=== PATIENT | male | born 1940 | race Caucasian/White ===

== ENCOUNTER 2020-09-18 07:33 | Inpatient (IN) | payer MEDICARE, SELFPAY ==
[2020-09-18] VITALS (11 sets, daily range): BP systolic 97–149; BP diastolic 62–81; PULSE 62–83; RESP 16–20; TEMP 37–37.6; O2SAT 91–93; BMI 24.5
--- NOTE | ~2020-09-18 | XR_ITS ---
XR chest 1V portable 09/25/2020 05:36 Indication: Dyspnea. Procedure: AP portable chest Comparison: 09/23/2020 Findings: Bilateral diffuse airspace disease with consolidation is confluent throughout the right margy g. Heart size normal. Right pleural effusion. No pneumothorax. No acute osseous abnormality. Impression: 1: Diffuse bilateral airspace disease, compatible with pneumonia. No significant change. Reviewed, dictated and finalized at location A. Impression: 1: Diffuse bilateral airspace disease, compatible with pneumonia. No significan t change.
--- NOTE | ~2020-09-18 | XR_ITS ---
EXAMINATION: XR chest 1V portable INDICATION: Cough and worsening hypoxia TECHNIQUE: Portable AP chest at 1353 hours COMPARISON: 09/18/2020 FINDINGS: There is increasing opacity of the right hemithorax. There is also worsening volume loss of the right hemithorax. Airspace opacities have developed in the left lung base. No pleural effusion o r pneumothorax is identified. The cardiomediastinal silhouette is normal. IMPRESSION: 1. Increasing diffuse airspace opacity of the right hemithorax with volume loss which may reflect aty pical pneumonia and/or asymmetric pulmonary edema with possible mucous plugging. Reviewed, dictated and finalized at location A. IMPRESSION: 1. Increasing diffuse airspace opacity of the right hemithorax with volume loss which may reflect atypical pneumonia and/or asymmetric pulmonary edema with po ssible mucous plugging.
--- NOTE | ~2020-09-18 | US_ITS ---
EXAMINATION: US venous doppler UE DATE: 09/23/2020 14:13 INDICATION: COVID positive presenting with acute worsening hypoxia TECHNIQUE: Grayscale images without and with compression and Doppler images of the bilateral upper ex tremity veins were obtained. COMPARISON: None. FINDINGS: The right internal jugular vein, subclavian vein, axillary vein, brachial vein, basilic vein, cephali c vein, radial vein, and ulnar vein are patent. The left internal jugular vein, subclavian vein, axillary vein, brachial vein, basilic vein, cephalic vein, radial vein, and ulnar vein are patent. IMPRESSION: 1. Patent bilateral upper extremity veins. No evidence of venous thrombosis. Reviewed, dictated and finalized at location A.
--- NOTE | ~2020-09-18 | XR_ITS ---
XR chest 1V portable DATE: 09/28/2020 05:38 INDICATION: Covid 19 pneumonia TECHNIQUE: Portable AP chest on 09/28/2020 at 0530 hours COMPARISON: 09/27/2020 portable AP chest at 0541 hours FINDINGS: There is prominent volume loss of the right lung with rightward shift of heart and mediasti num. There is interval improvement of right-sided pulmonary infiltrates since 09/27/2020. There is imp rovement of mild infiltrate and/or atelectasis at left lung base. Heart size appears normal. IMPRESSION: Persistent prominent right lung volume loss and rightward shift of heart and mediastinum; improvement of right-sided infiltrate and left basilar infiltrate or atelectasis since 09/27/2020 Reviewed, dictated and finalized at location A. IMPRESSION: Persistent prominent right lung volume loss and rightward shift of heart and mediastinum; improvement of right-sided infiltrate and left basilar i nfiltrate or atelectasis since 09/27/2020
--- NOTE | ~2020-09-18 | US_ITS ---
EXAMINATION: US abdomen limited DATE: 09/18/2020 14:11 INDICATION: Epigastric pain with cholelithiasis TECHNIQUE: Multiple grayscale and Doppler ultrasound images of the abdomen were obtained. COMPARISON: CT from today FINDINGS: The head and body of the pancreas are normal. The pancreatic tail is obscured by bowel gas. The liver is normal with normal echogenicity and echotexture. No surface nodularity. Normal hepatope javed flow in the main portal vein. Stones are present in the nondistended gallbladder. There is no gal lbladder wall thickening or pericholecystic fluid. The normal common bile duct measures 6 mm. IMPRESSION: 1. Cholelithiasis without additional findings of cholecystitis. Reviewed, dictated and finalized at location A.
--- NOTE | ~2020-09-18 | XR_ITS ---
XR chest 1V portable DATE: 09/29/2020 05:41 INDICATION: Covid 19 pneumonia TECHNIQUE: Portable AP chest on 09/29/2020 at 0514 hours COMPARISON: 09/28/2020 portable AP chest at 0530 hours FINDINGS: There is persistent prominent right lung volume loss and right lung infiltrate, with rightw astrid shift of the heart mediastinum. There is minimal infiltrate or atelectasis in the left lower lung zone. The left lung otherwise appea rs clear. Heart size appears within normal limits. IMPRESSION: No significant change Reviewed, dictated and finalized at location A. IMPRESSION: No significant change
--- NOTE | ~2020-09-18 | XR_ITS ---
EXAMINATION: XR chest 1V portable DATE: 09/23/2020 05:52 INDICATION: COVID pneumonia TECHNIQUE: frontal view of the chest was obtained. COMPARISON: Chest radiograph dated 09/22/20 and 09/18/2020 FINDINGS: Definite progression of asymmetric airspace opacities throughout the right lung with increased densit y at the lateral aspect of the lung. No change in mild left basilar opacities. No pneumothorax or def initive pleural effusion. Heart size is normal. There appears be rightward shift of the heart and med iastinum. IMPRESSION: 1. Continued progression of diffuse opacities throughout the right lung with unchanged mild left basi lar opacities. Differential would include pneumonia, pulmonary edema, atelectasis, pulmonary infarct, aspiration, pulmonary hemorrhage or some combination thereof. The asymmetric distribution relatively sparing the left lung the absence of other superimposed factors would be atypical for both pulmonary edema and viral pneumonia such as COVID pneumonia. The rightward shift of the heart and mediastinum dose suggests some degree of atelectasis. Reviewed, dictated and finalized at location A. IMPRESSION: 1. Continued progression of diffuse opacities throughout the right lung with un changed mild left basilar opacities. Differential would include pneumonia, pulm onary edema, atelectasis, pulmonary infarct, aspiration, pulmonary hemorrhage o r some combination thereof. The asymmetric distribution relatively sparing the left lung the absence of other superimposed factors would be atypical for both pulmonary edema and viral pneumonia such as COVID pneumonia. The rightward shif t of the heart and mediastinum dose suggests some degree of atelectasis.
--- NOTE | ~2020-09-18 | XR_ITS ---
EXAMINATION: XR chest 1V portable DATE: 09/18/2020 10:27 INDICATION: Cough and shortness of breath TECHNIQUE: frontal view of the chest was obtained. COMPARISON: None FINDINGS: Patchy groundglass opacities in the lateral right mid and lower lung zones suspicious for pneumonia. There is hyperexpansion of the lungs with increased lucency in the left mid and bilateral upper lung zones suspicious for emphysema. No focal airspace opacity left lung. No pleural effusion or pneumotho rax. Heart size is normal. There is rightward shift of the superior mediastinum which could be relate d to hyperexpansion of the left upper lung. There are bridging osteophytes at multiple levels in the spine, consistent with diffuse idiopathic skeletal hyperostosis (DISH). IMPRESSION: 1. Groundglass opacities at the lateral right mid to lower lung zone which is suspicious for pneumoni a including COVID pneumonia. 2. Emphysema. Reviewed, dictated and finalized at location A. IMPRESSION: 1. Groundglass opacities at the lateral right mid to lower lung zone which is s uspicious for pneumonia including COVID pneumonia. 2. Emphysema.
--- NOTE | ~2020-09-18 | CT_ITS ---
EXAMINATION: CT abdomen pelvis w con DATE: 09/18/2020 09:14 INDICATION: Abdominal pain TECHNIQUE: Computed tomography (CT) of the abdomen and pelvis was performed with 100 mL Omnipaque-350 intravenous contrast. Automated exposure control and iterative reconstruction technique were employe d. The dose-length product was 879.19 mGy-cm. COMPARISON: None FINDINGS: Crazy paving pattern with groundglass opacities and septal line thickening with peripheral predominan ce in the right middle and lower lobes which could represent pneumonia including COVID pneumonia or a symmetric pulmonary edema. L3-4 millimeters left lower lobe nodule. Heart size is normal. No pericard ial or pleural effusion. Small sliding-type hiatal hernia. A few gallstones in the dependent fundus o f the normal gallbladder. Liver, bilateral adrenal glands are normal. There is a lobular contour at t he cephalad aspect of the spleen without evident underlying splenic lesions which is of indeterminate etiology or significance. There gastrosplenic and splenorenal collaterals as well as couple small po tential collateral splenic veins suggesting chronic splenic vein thrombosis. The portal and superior mesenteric veins are patent. 9 mm simple cyst at the lower pole of the left kidney with additional sm all bilateral parapelvic cysts of both kidneys. No hydronephrosis. Appendix is normal. No bowel obstr uction. Anastomotic suture line at the rectosigmoid junction suggesting prior partial colectomy. Post operative change of prior prostatectomy and the lateral pelvic lymph node dissections. Bladder is nor mal small fat-containing left inguinal hernia. No free intraperitoneal gas or fluid. No pathologicall y enlarged abdominal or pelvic lymphadenopathy. Moderate thoracolumbar spondylosis with bridging oste ophytes at multiple levels consistent with diffuse idiopathic skeletal hyperostosis (DISH). IMPRESSION: 1. Crazy paving pattern in the right midlung lower lobes most concerning for pneumonia particularly C OVID pneumonia with differential including asymmetric pulmonary edema. 2. Cholelithiasis. 3. Lobular contour to the spleen which could be related to prior trauma or infarct. 4. 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 4. Small fat-containing left inguinal hernia. Reviewed, dictated and finalized at location A. IMPRESSION: 1. Crazy paving pattern in the right midlung lower lobes most concerning for pn eumonia particularly COVID pneumonia with differential including asymmetric pul monary edema. 2. Cholelithiasis. 3. Lobular contour to the spleen which could be related to prior trauma or infa rct. 4. 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 4. Small fat-containing left inguinal hernia.
--- NOTE | ~2020-09-18 | US_ITS ---
EXAMINATION: US venous doppler [facility] DATE: 09/23/2020 14:12 INDICATION: COVID positive presenting with acute worsening hypoxia TECHNIQUE: Grayscale ultrasound images without and with compression and Doppler ultrasound images of the bilateral lower extremity veins were obtained. COMPARISON: None. FINDINGS: The visualized portions of right common femoral vein, profunda (deep) femoral vein, femoral vein, pop liteal vein, posterior tibial veins, peroneal veins, gastrocnemius vein and greater saphenous vein ou tflow are patent. The visualized portions of left common femoral vein, profunda femoral vein, femoral vein, popliteal v ein, posterior tibial veins, peroneal veins, gastrocnemius vein and greater saphenous vein outflow ar e patent. IMPRESSION: 1. No deep venous thrombosis in either lower limb. Reviewed, dictated and finalized at location A.
--- NOTE | ~2020-09-18 | XR_ITS ---
XR chest 1V portable DATE: 09/26/2020 05:54 INDICATION: Covid 19 pneumonia TECHNIQUE: Portable AP chest on 09/26/2020 at 0513 hours COMPARISON: 09/25/2020 portable AP chest at 0526 hours 09/18/2020 portable AP chest FINDINGS: There is persistent volume loss of the right lung with rightward shift of heart and mediast inum, persistent extensive right lung consolidation, probable pleural thickening and/or effusion, rel atively stable since 09/25/2020. Considerably increased since 09/18/2020. Mild infiltrate or atelectasis in the left lower lung. Heart size is likely within normal range or borderline considering magnification associated with AP p rojection. No left pleural effusion. No pneumothorax. Diffuse osteopenia. IMPRESSION: Volume loss and extensive infiltrate/consolidation of the right lung, with rightward shif t of heart and mediastinum. Probable right pleural effusion Patchy infiltrate or atelectasis in the left lower lung Little interval change since 09/25/2020 Reviewed, dictated and finalized at location A. IMPRESSION: Volume loss and extensive infiltrate/consolidation of the right margy g, with rightward shift of heart and mediastinum. Probable right pleural effusi on Patchy infiltrate or atelectasis in the left lower lung Little interval change since 09/25/2020
--- NOTE | ~2020-09-18 | XR_ITS ---
XR chest 1V portable DATE: 09/27/2020 06:00 INDICATION: Covid 19 pneumonia TECHNIQUE: Portable AP chest on 09/27/2020 0541 hours COMPARISON: 09/26/2020 portable AP chest at 0513 hours FINDINGS: There is right lung volume loss with rightward shift of the heart mediastinum and extensive right-sided infiltrate, relatively stable since 09/22/2020. Mild infiltrate or atelectasis in the left lower lung zone. Heart size appears borderline. Is aortic calcification. Degenerative spurring of the thoracic spine. Diffuse osteopenia. IMPRESSION: Right lung volume loss and extensive right lung infiltrate, mild left lower lung infiltra te or atelectasis, relatively stable since 10/06/2020 Reviewed, dictated and finalized at location A. IMPRESSION: Right lung volume loss and extensive right lung infiltrate, mild le ft lower lung infiltrate or atelectasis, relatively stable since 10/06/2020
--- NOTE | ~2020-09-18 | XR_ITS ---
XR chest 1V portable DATE: 09/30/2020 05:58 INDICATION: Covid 19 pneumonia TECHNIQUE: Portable AP chest on 09/30/2020 at 0532 hours COMPARISON: 09/29/2020 portable AP chest at 0514 hours FINDINGS: There is persistent substantial right lung volume loss with associated prominent rightward shift of heart and mediastinum. There is persistent extensive patchy pulmonary right lung consolidati on. There is infiltrate and/atelectasis in the left lower lung. IMPRESSION: No significant change since 09/29/2020 Reviewed, dictated and finalized at location A.
--- NOTE | ~2020-09-18 | XR_ITS ---
XR chest 1V portable 10/04/2020 06:09 Indication: Respiratory failure Procedure: AP portable chest Comparison: Comparison to multiple prior studies sequentially, with oldest reviewed study dated 09/27. Findings: Patchy bilateral airspace disease, right greater than left, unchanged. Low lung volumes in the right lung. Mediastinal shift to the right. No pneumothorax. No significant effusion. Impression: 1: Stable bilateral airspace disease, right greater than left, consistent with pneumonia. Reviewed, dictated and finalized at location A. Impression: 1: Stable bilateral airspace disease, right greater than left, consistent with pneumonia.
--- NOTE | ~2020-09-18 | US_ITS ---
EXAMINATION: US art doppler w press UE BI DATE: 09/27/2020 15:36 INDICATION: Peripheral arterial disease. Ischemic left hand. TECHNIQUE: Segmental pressures and plethysmographic and Doppler waveforms of the upper extremity makayla laurent were obtained. COMPARISON: None. FINDINGS: Right and left brachial artery pressures of 118 mm Hg and 100 mm Hg, respectively, are concordant (no rmal difference <= 30 mmHg). The right finger:brachial systolic pressure ratio is 0.89 (normal > 0.8) . Segmental pressure gradients are normal. Arterial Doppler waveforms demonstrate normal upstroke (no rmal upstroke < 0.2 s). The left finger:brachial systolic pressure ratio is 0.23. Segmental pressure gradients are increased between the brachial and ulnar arteries. Arterial Doppler waveforms are poorly visualized in ulnar ar teja. IMPRESSION: 1. Decreased pressures in left ulnar artery and left finger, consistent with arterial occlusive disea se. Reviewed, dictated and finalized at location A. IMPRESSION: 1. Decreased pressures in left ulnar artery and left finger, consistent with ar terial occlusive disease.
--- NOTE | ~2020-09-18 | CT_ITS ---
EXAMINATION: CTA chest PE protocol DATE: 09/23/2020 16:03 INDICATION: Acute worsening of hypoxia TECHNIQUE: Computed tomography angiography (CTA) of the chest was performed with 100 mL Omnipaque-350 intravenous contrast timed to evaluate the pulmonary arteries. Coronal maximum intensity projection 3D-reconstructions were created by the technologist. The dose-length product (DLP) was 734.43 mGy-cm. Automated exposure control and iterative reconstruction technique were employed. COMPARISON: None. FINDINGS: The pulmonary arteries are well-opacified. No pulmonary embolism is identified. Respiratory motion artifact somewhat limits evaluation of the lung bases. There are groundglass opacities involv ing much of the right lung there is also associated volume loss of the right lung. Small pleural effu sions are present. There are peripheral groundglass opacities of the left lung. There is right hilar and mediastinal lymphadenopathy. The heart size is normal. There are bridging osteophytes at multiple levels in the spine, consistent with diffuse idiopathic skeletal hyperostosis (DISH). IMPRESSION: 1. Diffuse groundglass opacities involving much of the right lung consistent with asymmetric pulmonar y edema and/or atypical pneumonia. 2. Small pleural effusions. 3. Right hilar and mediastinal lymphadenopathy, likely reactive. Reviewed, dictated and finalized at location A. IMPRESSION: 1. Diffuse groundglass opacities involving much of the right lung consistent wi th asymmetric pulmonary edema and/or atypical pneumonia. 2. Small pleural effusions. 3. Right hilar and mediastinal lymphadenopathy, likely reactive.
--- NOTE | 2020-09-18 08:15 | ED.GENADULT ---
HPI - General Adult General Chief complaint: Nausea/Vomiting/Diarrhea Stated complaint: This that and the other Time Seen by Provider: 09/18/20 07:58 Source: patient and RN notes reviewed History of Present Illness HPI narrative: Patient is a 79 y/o male complaining of abdominal pain, nausea and diarrhea for over 1 week. He states that his pain is in right lower abdomen and rates as 6/10. He states that his pain radiates to his shoulder sometimes. There is no known alleviating or exacerbating factor. He has poor appetite and has not been eating much. He has a cough, but no fever. He did not get COVID vaccine. Related Data Home Medications Medication Instructions Recorded Confirmed No Home Medications 09/18/20 09/18/20 Allergies Allergy/AdvReac Type Severity Reaction Status Date / Time No Known Allergies Allergy Verified 09/18/20 07:49 Review of Systems Constitutional: Constitutional: Denies chills, Denies fever(s), Denies headache(s), Reports malaise, Reports poor appetite and Denies weakness Eyes: Eyes: Denies blurry vision ENT: Denies headache(s) and Denies neck pain Cardiovascular: Cardiovascular: Denies chest pain and Denies dyspnea Respiratory: Respiratory: Reports cough and Denies dyspnea Gastrointestinal: Gastrointestinal: Reports abdominal pain, Reports diarrhea, Reports nausea and Denies vomiting Genitourinary: Genitourinary: Denies hematuria and Denies dysuria Musculoskeletal: Musculoskeletal: Denies back pain and Denies neck pain Neurologic: Denies headache(s) and Denies weakness PMFSH Social History Social History Gender identity (if verbalized by the patient): Male Exam Const: General: no acute distress and well developed Orientation/consciousness: oriented to person, oriented to place, oriented to time and patient oriented x3 HENMT: Head: normocephalic Ears: external ears normal General nose exam: Normal external nose present Eyes: General: appearance normal, both eyes and all related structures Conjunctivae: conjunctivae normal Neck: Neck: normal visual inspection and full ROM Chest: Chest palpation & inspection: normal inspection of the chest and no tenderness Resp: Effort & Inspection: normal respiratory effort Auscultation: clear to auscultation bilaterally Cardio: Rate: regular rate Rhythm: regular rhythm GI: GI Palp: No abdominal tenderness and Yes Soft to palpation Skin: General skin exam: normal color and turgor normal Neuro: General: oriented to person, oriented to place, oriented to time and patient oriented x3 Cranial nerves: Yes hard of hearing Cognition (Neuro): normal cognition Extrem: General: normal to inspection, full ROM and no pedal edema Psych: Appearance: grossly normal Mental Status: mental status grossly normal Affect: normal affect Course Consultations Consultation #1: Discussed with Dr. Hagan, who agrees to admit. Date: 09/18/20 Time: 10:22 Vital Signs Vital signs: Vital Signs Temperature 37.6 C 09/18/20 07:42 Pulse Rate 81 09/18/20 07:42 Respiratory Rate 16 09/18/20 07:42 Blood Pressure 115/67 09/18/20 07:42 Pulse Oximetry 92 09/18/20 07:42 Temperature 37.1 C 09/18/20 12:25 Pulse Rate 62 09/18/20 12:25 Respiratory Rate 20 09/18/20 12:25 Blood Pressure 139/70 09/18/20 12:25 Pulse Oximetry 92 09/18/20 12:25 Medical Decision Making Vital Signs Vital Signs: Vital Signs Temperature 37.6 C 09/18/20 07:42 Pulse Rate 81 09/18/20 07:42 Respiratory Rate 16 09/18/20 07:42 Blood Pressure 115/67 09/18/20 07:42 Pulse Oximetry 92 09/18/20 07:42 Temperature 37.1 C 09/18/20 12:25 Pulse Rate 62 09/18/20 12:25 Respiratory Rate 20 09/18/20 12:25 Blood Pressure 139/70 09/18/20 12:25 Pulse Oximetry 92 09/18/20 12:25 Lab Data Result diagrams: 09/18/20 08:09 09/18/20 08:09 Labs: Lab Res
[2020-09-18] MEDS: ONDANSETRON INJ 4 MG/2 ML VIAL IV PUSH ×2 (08:28→13:33)
[2020-09-18] MEDS: SODIUM CHLORIDE 0.9% IV 1,000 ML 999 ML IV CONT ×2 (08:28→10:29)
[2020-09-18 08:31] LABS: Basophils Percent Auto 0.1 % (0.2-1.2); Eosinophils Percent Auto 0.1 % (0-4.4); Hematocrit 41.3 % (42.0-52.0); Hemoglobin 13.9 g/dL (14.0-18.0); Immature Granulocyte Absolute 0.04 K/mm3 (0.00-0.031); Immature Granulocyte Percent A 0.5 % (0-0.5); Lymphocytes Absolute Auto 2.14 K/mm3 (0.9-3.2); Lymphocytes Percent Auto 28.8 % (18.3-44.2); Mean Corpuscular HGB Conc 33.7 g/dl (32-36); Mean Corpuscular Hemoglobin 31.3 pg (26-34); Mean Platelet Volume 10.4 fl (7.4-10.4); Monocytes Absolute Auto 0.4 K/mm3 (0.1-0.6); Monocytes Percent Auto 5.1 % (2.6-8.5); Neutrophils Absolute Auto 4.8 K/mm3 (1.3-6.7); Neutrophils Percent Auto 65.4 % (45.5-73.1); Platelet Count Result 239 k/mm3 (150-375); Red Blood Count 4.44 M/mm3 (4.6-6.20); Red Cell Distribution Width 12.3 % (11.5-14.5); White Blood Count 7.4 K/mm3 (4.5-10.0)
[2020-09-18 08:37] LABS: Add Urine Microscopic? YES; Appearance Urine Cloudy (Clear); Bacteria Urine Trace /hpf; Bilirubin Urine Negative (Negative); Color Urine Amber (Yellow); Glucose Urine UA Negative (Negative); Ketones Urine Negative (Negative); Leukocyte Esterase Ur Trace LEU/UL (Negative); Mucus Urine Rare /lpf; Nitrate Urine Negative (Negative); Protein Urine 2+ mg/dL (Negative); RBC Urine 0-2 /hpf (0-2); Specific Grav Ur 1.025 (1.001-1.035); Squamous Epithelial Cell Urine Many /hpf (Few); Urobilinogen Urine Negative mg/dL (<2.0)
[2020-09-18 08:39] LABS: Blood Urine Negative (Negative)
[2020-09-18 08:43] LABS: Alanine Aminotransferase 35 U/L (4-50); Albumin Level 3.5 g/dL (3.5-5.1); Alkaline Phosphatase 58 U/L (38-126); Aspartate Amino Transferase 40 U/L (17-59); Bilirubin,Total 0.8 mg/dL (0.2-1.3); Blood Urea Nitrogen 43 mg/dL (9-20); Calcium 8.3 mg/dL (8.4-10.2); Carbon Dioxide 22 mmol/L (22-30); Estimated CRCL calculation 37 ml/min; Estimated Glomerular Filt Rate 42; Glucose 105 mg/dL (65-110); Lipase 337 U/L (23-300)
[2020-09-18 09:10] LABS: Anion Gap 11 mmol/L (8-16); Chloride 102 mmol/L (98-107); Potassium 4.6 mmol/L (3.4-5.0); Sodium 135 mmol/L (137-145)
--- NOTE | 2020-09-18 10:14 | ECG_ITS ---
Measurements Intervals Webb Rate: 72 P: 55 NC: 162 QRS: 17 QRSD: 113 T: 47 QT: 421 QTc: 462 Interpretive Statements SINUS RHYTHM INTRAVENTRICULAR CONDUCTION DELAY DELAYED PRECORDIAL R/S TRANSITION BASELINE ARTIFACT- I, II, III, AVR, AVL, AVF, V1, V3-V6 BORDERLINE ECG Electronically Signed On 09-18-2020 11:48:26 CDT by Jimmy Ge D.O.
[2020-09-18 10:50] LABS: Troponin I 0.034 ng/mL (0.000-0.034)
--- NOTE | 2020-09-18 12:43 | PM.IMHP ---
H&P: HPI History of Present Illness Date/Time: 09/18/20 12:43 He is a 79 male with no significant past medical history who came into the ED with complaints of abdominal pain. As per the patient he has been having this vague epigastric discomfort /pain for the last 1 week. He had some pain in the right lower quadrant and about a week ago but that has subsided now. He denied have any radiation. It is 5-6 x 10 in intensity. It is dull ache. He is nauseous but no vomiting. He has some occasional dry heaving. He had 1 episode of diarrhea but that has now subsided. He has very poor appetite. He is also complaining of cough for the last 1 week and has been complaining of shortness of breath with exertion. He denied have any fever and chills. He has been taking Advil at home. He denied have any chest pain. He has not been vaccinated for COVID-19. He denied have any exposure to any body with suspected or confirmed COVID-[address] abdomen pelvis done in the emergency department which did not show any significant abdominal pathology other than cholelithiasis and small fat containing left inguinal hernia. He was found to have some ground-glass opacity in the right mid lung and lower lobe. COVID-19 test was sent from the emergency department which is pending. Chief Complaint: abdominal pain Review of Systems Review of Systems: All systems reviewed & are unremarkable except as noted in HPI and below PMFSH Social History Social History Gender identity (if verbalized by the patient): Male Meds Home Medications and Allergies Home Medications Medication Instructions Recorded Confirmed Type No Home Medications 09/18/20 09/18/20 History Allergies Allergy/AdvReac Type Severity Reaction Status Date / Time No Known Allergies Allergy Verified 09/18/20 07:49 Vital Signs Vital Signs - 24 hr 09/18/20 07:42 09/18/20 08:28 09/18/20 09:30 Temperature 37.6 C Pulse Rate 81 82 75 Respiratory Rate 16 20 20 Blood Pressure 115/67 97/62 L 111/65 Pulse Oximetry 92 91 93 09/18/20 10:40 09/18/20 11:16 09/18/20 12:00 Temperature Pulse Rate 72 70 73 Respiratory Rate 20 20 20 Blood Pressure 135/69 149/72 H 132/79 Pulse Oximetry 92 92 91 09/18/20 12:25 Temperature 37.1 C Pulse Rate 62 Respiratory Rate 20 Blood Pressure 139/70 Pulse Oximetry 92 Exam Narrative: General awake and alert not in acute distress, Hard of hearing Eyes PERRLA normal conjunctiva no discharge HEENT no discharge Neck supple CVS S1-S2 no murmur Respiratory no wheezes or crepitation respiration nonlabored GI soft minimal tenderness in the epigastric area Chest wall no tenderness or 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 Psychiatric cooperative appropriate mood and affect Extremities no edema H&P: Results Labs Labs: Short CBC 09/18/20 Range/Units 08:09 WBC 7.4 (4.5-10.0) K/mm3 Hgb 13.9 L (14.0-18.0) g/dL Hct 41.3 L (42.0-52.0) % Plt Count 239 (150-375) k/mm3 BMP 09/18/20 08:09 Sodium 135 L Potassium 4.6 Chloride 102 Carbon Dioxide 22 BUN 43 H Creatinine 1.60 H Glucose 105 Calcium 8.3 L Cardiac Enzymes 09/18/20 Range/Units 08:09 Troponin I 0.034 (0.000-0.034) ng/mL Liver Function 09/18/20 Range/Units 08:09 Total Bilirubin 0.8 (0.2-1.3) mg/dL AST 40 (17-59) U/L ALT 35 (4-50) U/L Alkaline Phosphatase 58 (38-126) U/L Albumin 3.5 (3.5-5.1) g/dL Urine 09/18/20 Range/Units 08:09 Urine Color [place] (Yellow) Urine Appearance Cloudy H (Clear) Urine pH 5.0 (5.0-9.0) Ur Specific [place] 1.025 (1.001-1.035) Urine Protein 2+ H (Negative) mg/dL Urine Glucose (UA) Negative (Negative) mg/dL Assessment and Plan Assessment and plan (1) Gastritis: Code(s): K29.70 - Gastritis, unspecified, without bleeding Status: Acute Assessment
--- NOTE | 2020-09-18 13:12 | PC.NURSE ---
This patient, Negrito Valdez, was admitted to [facility] Surg Room 321-. Patient/family oriented to hospital policies and general routines including ID bracelet, bed and alarms, visiting hours, pain management, procedures, bathroom and other care routines, personal items, smoking policy, room service/diet, and visiting hours. Information on how to activate the Rapid Response Team has been discussed. Patient/Family are encouraged to report perceived risks to care and to ask questions if they do not understand what they are told or what they should do.
[2020-09-18] MEDS: SODIUM CHLORIDE 0.9% IV 1,000 ML 100 ML IV CONT (13:30)
[2020-09-18 13:35] LABS: Troponin I 0.029 ng/mL (0.000-0.034)
[2020-09-18 16:42] LABS: Troponin I 0.032 ng/mL (0.000-0.034)
[2020-09-18] MEDS: PANTOPRAZOLE SODIUM IV 40 MG VIAL IV PUSH (18:00)
[2020-09-18] MEDS: HEPARIN SODIUM 5,000 UNITS/ML VIAL 5000 UNITS SUB-Q (20:42)
[2020-09-18] MEDS: MAG HYDROX/AL HYDROX/SIMETH 30 ML UDC PO (21:48)
[2020-09-19] VITALS (9 sets, daily range): BP systolic 132–145; BP diastolic 60–76; PULSE 52–83; RESP 17–22; TEMP 36.4–36.9; O2SAT 88–96
[2020-09-19] MEDS: HEPARIN SODIUM 5,000 UNITS/ML VIAL 5000 UNITS SUB-Q (08:46)
[2020-09-19] MEDS: PANTOPRAZOLE SODIUM IV 40 MG VIAL IV PUSH (08:46)
[2020-09-19 09:16] LABS: Anion Gap 8 mmol/L (8-16); Blood Urea Nitrogen 29 mg/dL (9-20); Calcium 8.1 mg/dL (8.4-10.2); Carbon Dioxide 24 mmol/L (22-30); Chloride 105 mmol/L (98-107); Estimated CRCL calculation 42 ml/min; Estimated Glomerular Filt Rate 49; Glucose 98 mg/dL (65-110); Potassium 4.4 mmol/L (3.4-5.0); Sodium 137 mmol/L (137-145)
--- NOTE | 2020-09-19 12:47 | PM.IMPN ---
Progress Note: A&P Assessment and Plan (1) KATERYNA (acute kidney injury): Code(s): N17.9 - Acute kidney failure, unspecified Status: Acute Assessment and Plan: -down trending down to 1.4 (2) Gastroenteritis: Code(s): K52.9 - Noninfective gastroenteritis and colitis, unspecified Status: Acute Assessment and Plan: - patient had some problems overnight, appears to have resolved. Advancing diet to regular (3) Person under investigation for COVID-19: Code(s): Z20.822 - Contact with and (suspected) exposure to COVID-19 Status: Acute Assessment and Plan: awaiting COVID-19 results, imaging was concerning for COVID-19 because of ground-glass opacities (4) Dehydration: Code(s): E86.0 - Dehydration Status: Acute Assessment and Plan: patient is tolerating p.o. Additional Plan - diet: Regular - GI prophylaxis: Ppi - code status full code - disposition pending clinical course, likely home Time Spent With Patient Time with patient: 15 - 25 minutes Subjective Date/time seen: 09/19/20 12:47 Patient examined. Overnight he had a lot of abdominal pain that was thought to be from gastritis and he has been on PPI. we discussed advancing his diet to regular today to see how well tolerates it. imaging was concerning for COVID-19, awaiting COVID-19 results. He is on 2 L of oxygen. patient denies fever, chills, nausea, vomiting, diarrhea. Does endorse abdominal pain which resolved overnight. He feels much better overall today. Review of Systems Review of Systems: All systems reviewed & are unremarkable except as noted in HPI and below Exam Narrative: - GENERAL: Pleasant elderly male, appears stated age, no acute distress - EYES: EOMI. Anicteric. - HENT: Moist mucous membranes. - LUNGS: Clear to auscultation bilaterally, no wheezing, rhonchi, or rales. - CARDIOVASCULAR: Regular rate and rhythm. No murmur. No JVD. - ABDOMEN: Soft, non-tender and non-distended. No palpable masses. - EXTREMITIES: No edema. Peripheral pulses 2+. Non-tender. - NEUROLOGIC: No focal neurological deficits. CN II-XII grossly intact. - PSYCHIATRIC: Awake, Alert and oriented. Appropriate mood and affect. - SKIN: No rashes or lesions. Warm. - LYMPH: No cervical lymphadenopathy. Objective Data Vital Signs Vital Signs: Vital Signs - 24 hr 09/18/20 16:00 09/18/20 20:00 09/18/20 23:32 Temperature 37.2 C 37.6 C H 37.0 C Pulse Rate 81 83 77 Respiratory Rate 20 20 18 Blood Pressure 148/80 H 147/81 H 143/74 H Pulse Oximetry 92 91 93 09/19/20 03:51 09/19/20 08:00 09/19/20 10:50 Temperature 36.8 C 36.9 C Pulse Rate 66 68 Respiratory Rate 17 20 Blood Pressure 145/73 H 132/60 Pulse Oximetry 90 96 92 09/19/20 12:00 Temperature 36.4 C Pulse Rate 52 L Respiratory Rate 22 H Blood Pressure 139/76 Pulse Oximetry 92 Intake/Output Intake/Output: Intake & Output 09/16/20 09/17/20 09/18/20 09/19/20 23:59 23:59 23:59 23:59 Intake Total 2300 340 Balance 2300 340 Meds/Results Medications: Active Medications Generic Name Dose Route Start Last Admin Trade Name Freq PRN Reason Stop Dose Admin Acetaminophen 650 mg 09/18/20 12:40 Acetaminophen 325 Mg Tablet PO Q6H PRN Mild Pain (1-3) or Fever Al Hydrox/Mg Hydrox/Simethicone 30 ml 09/18/20 12:40 09/18/20 21:48 Mag Hydrox/Al Hydrox/Simeth 30 Ml Udc PO 30 ml QID PRN Administration Dyspepsia Heparin Sodium (Porcine) 5,000 units 09/18/20 21:00 09/19/20 08:46 Heparin Sodium 5,000 Units/Ml Vial SUB-Q 5,000 units Q12HR JINNY Administration Sodium Chloride 1,000 mls @ 100 mls/hr 09/18/20 12:40 09/18/20 13:30 Normal Saline Iv IV CONT 100 mls/hr .Q10H JINNY Administration Ondansetron HCl 4 mg 09/18/20 12:40 09/18/20 13:33 Ondansetron Inj 4 Mg/2 Ml Vial IV PUSH 4 mg Q6H PRN Administration Nausea And Vomiting Pantoprazole Sodium 40 mg 09/18/20 12:55 09/19/20
[2020-09-19 13:58] LABS: SARS-CoV-2 RNA PCR Positive
[2020-09-19 16:24] LABS: INR 1.1; Prothrombin Time 13.7 Seconds (11.1-14.7)
[2020-09-19 16:32] LABS: Alanine Aminotransferase 28 U/L (4-50); Estimated CRCL calculation 45 ml/min; Estimated Glomerular Filt Rate 53
[2020-09-19] MEDS: MAG HYDROX/AL HYDROX/SIMETH 30 ML UDC PO (17:04)
[2020-09-19] MEDS: ONDANSETRON INJ 4 MG/2 ML VIAL IV PUSH (17:04)
[2020-09-19 18:02] LABS: Eosinophils Percent Auto 0.3 % (0-4.4); Hematocrit 41.2 % (42.0-52.0); Hemoglobin 12.9 g/dL (14.0-18.0); Immature Granulocyte Absolute 0.06 K/mm3 (0.00-0.031); Immature Granulocyte Percent A 0.9 % (0-0.5); Lymphocytes Absolute Auto 1.89 K/mm3 (0.9-3.2); Lymphocytes Percent Auto 29.7 % (18.3-44.2); Mean Corpuscular HGB Conc 31.3 g/dl (32-36); Mean Platelet Volume 9.9 fl (7.4-10.4); Monocytes Absolute Auto 0.3 K/mm3 (0.1-0.6); Monocytes Percent Auto 4.2 % (2.6-8.5); Neutrophils Absolute Auto 4.1 K/mm3 (1.3-6.7); Neutrophils Percent Auto 64.9 % (45.5-73.1); Platelet Count Result 221 k/mm3 (150-375); Red Blood Count 4.16 M/mm3 (4.6-6.20); Red Cell Distribution Width 12.7 % (11.5-14.5); White Blood Count 6.4 K/mm3 (4.5-10.0)
[2020-09-19] MEDS: REMDESIVIR 200 MG/NS 250 ML 200 MG/250 ML BAG 250 MG IVPB (18:36)
[2020-09-19] MEDS: SODIUM CHLORIDE 0.9% IV 1,000 ML 100 ML IV CONT (18:39)
[2020-09-19] MEDS: ENOXAPARIN 40 MG/0.4 ML SYRINGE SUB-Q (21:18)
[2020-09-20] VITALS: BP 129/50; PULSE 94; RESP 18; TEMP 36.9; O2SAT 94
[2020-09-20] MEDS: SODIUM CHLORIDE 0.9% IV 1,000 ML 100 ML IV CONT (06:05)
[2020-09-20 06:50] LABS: Alanine Aminotransferase 25 U/L (4-50); Estimated CRCL calculation 45 ml/min; Estimated Glomerular Filt Rate 53
[2020-09-20 06:58] LABS: INR 1.1
[2020-09-20 08:00] VITALS: BP 150/76; PULSE 77; RESP 20; TEMP 37.2; O2SAT 94
[2020-09-20] MEDS: DEXAMETHASONE 2 MG TABLET 6 MG PO (08:05)
[2020-09-20] MEDS: PANTOPRAZOLE SODIUM IV 40 MG VIAL IV PUSH (08:06)
[2020-09-20] MEDS: ENOXAPARIN 40 MG/0.4 ML SYRINGE SUB-Q ×2 (08:06→20:27)
[2020-09-20] MEDS: REMDESIVIR 100 MG/NS 250 ML 100 MG/250 ML BAG 250 MG IVPB (10:49)
[2020-09-20 12:09] VITALS: O2SAT 90
--- NOTE | 2020-09-20 12:51 | PM.IMPN ---
Progress Note: A&P Assessment and Plan (1) COVID-19: Code(s): U07.1 - COVID-19 Status: Acute Assessment and Plan: - diagnosed 09/18/2020 - likely etiology of hypoxia and gastroenteritis - continue remdesivir and decadron (2) KATERYNA (acute kidney injury): Code(s): N17.9 - Acute kidney failure, unspecified Status: Acute Assessment and Plan: - KATERYNA resolved, creatinine down to 1.3, likely was prerenal from diarrhea from gastroenteritis, stop IV fluids (3) Gastroenteritis: Code(s): K52.9 - Noninfective gastroenteritis and colitis, unspecified Status: Acute Assessment and Plan: - likely from COVID-19 as this is a common symptom - continue supportive care (4) Acute respiratory failure with hypoxia: Code(s): J96.01 - Acute respiratory failure with hypoxia Status: Acute Assessment and Plan: - patient is not on any home oxygen therapy -Continue supplemental oxygen to keep oxygen saturation greater than 90%, hypoxia from COVID-19 Additional Plan Diet: Regular DVT prophylaxis: Lovenox GI prophylaxis: Protonix Code status: Full code Disposition: Continue remdesivir while hypoxic, will evaluate with PT and possible home O2 evaluation once complete with remdesivir course Time Spent With Patient Time with patient: 15 - 25 minutes Subjective Date/time seen: 09/20/20 12:51 Patient examined. He has no new complaints still very hard of hearing and needs hearing aid battery changed. He has oxygen requirements have increased to 3 L as his O2 saturation was 89% on 2 L. I discussed with nurse to continue titrating oxygen for saturations greater than 90%. We will continue his remdesivir and decadron treatment plan. is otherwise doing well no new problems. Diarrhea seems to be resolved. patient denies fever, chills, nausea, vomiting, abdominal pain. Review of Systems Review of Systems: All systems reviewed & are unremarkable except as noted in HPI and below Exam Narrative: - GENERAL: Pleasant elderly gentleman appears stated age. sitting comfortably in chair. No acute distress. - EYES: EOMI. Anicteric. - HENT: Moist mucous membranes. - LUNGS: Clear to auscultation bilaterally, no wheezing. Regular respirations on 3 L oxygen by nasal cannula. - CARDIOVASCULAR: Regular rate and rhythm. No murmur. No JVD. - ABDOMEN: Soft, non-tender and non-distended. - EXTREMITIES: No edema. Peripheral pulses 2+. Non-tender. - NEUROLOGIC: No focal neurological deficits. CN II-XII grossly intact. - PSYCHIATRIC: Awake, Alert and oriented. Appropriate mood and affect. - SKIN: No rashes or lesions. Warm. - LYMPH: No cervical lymphadenopathy. Objective Data Vital Signs Vital Signs: Vital Signs - 24 hr 09/19/20 13:00 09/19/20 16:00 09/19/20 16:07 Temperature 36.6 C Pulse Rate 83 Respiratory Rate 20 Blood Pressure 142/71 H Pulse Oximetry 96 92 94 09/19/20 20:00 09/20/20 00:00 09/20/20 08:00 Temperature 36.9 C 37.2 C Pulse Rate 94 77 Respiratory Rate 18 20 Blood Pressure 129/50 L 150/76 H Pulse Oximetry 90 94 94 09/20/20 12:09 Temperature Pulse Rate Respiratory Rate Blood Pressure Pulse Oximetry 90 Intake/Output Intake/Output: Intake & Output 09/17/20 09/18/20 09/19/20 09/20/20 23:59 23:59 23:59 23:59 Intake Total 3300 830 2240 Output Total 400 Balance 3300 830 1840 Meds/Results Medications: Active Medications Generic Name Dose Route Start Last Admin Trade Name Freq PRN Reason Stop Dose Admin Acetaminophen 650 mg 09/18/20 12:40 Acetaminophen 325 Mg Tablet PO Q6H PRN Mild Pain (1-3) or Fever Al Hydrox/Mg Hydrox/Simethicone 30 ml 09/18/20 12:40 09/19/20 17:04 Mag Hydrox/Al Hydrox/Simeth 30 Ml Udc PO 30 ml QID PRN Administration Dyspepsia Dexamethasone 6 mg 09/20/20 08:00 09/20/20 08:05 Dexamethasone 2 Mg Tablet PO 09/29/20 08:01 6 mg DAILY@0800 JINNY Administration Enoxapar
[2020-09-20 16:00] VITALS: BP 93/60; PULSE 86; RESP 20; TEMP 36.3; O2SAT 94
[2020-09-20 20:00] VITALS: O2SAT 91
[2020-09-21] VITALS (7 sets, daily range): BP systolic 102–132; BP diastolic 51–63; PULSE 65–96; RESP 16–18; TEMP 35.6–36.9; O2SAT 90–92
[2020-09-21 07:11] LABS: Alanine Aminotransferase 25 U/L (4-50); Estimated CRCL calculation 45 ml/min; Estimated Glomerular Filt Rate 53
[2020-09-21 07:55] LABS: INR 1.2; Prothrombin Time 15.3 Seconds (11.1-14.7)
[2020-09-21] MEDS: REMDESIVIR 100 MG/NS 250 ML 100 MG/250 ML BAG 250 MG IVPB (09:56)
[2020-09-21] MEDS: ENOXAPARIN 40 MG/0.4 ML SYRINGE SUB-Q ×2 (09:56→22:09)
[2020-09-21] MEDS: PANTOPRAZOLE SODIUM IV 40 MG VIAL IV PUSH (09:56)
[2020-09-21] MEDS: DEXAMETHASONE 2 MG TABLET 6 MG PO (09:56)
--- NOTE | 2020-09-21 10:55 | PM.IMPN ---
Progress Note: A&P Assessment and Plan (1) COVID-19: Code(s): U07.1 - COVID-19 Status: Acute Assessment and Plan: - diagnosed 09/18/2020 - likely etiology of hypoxia and gastroenteritis - continue remdesivir and decadron to be completed on the (2) Acute respiratory failure with hypoxia: Code(s): J96.01 - Acute respiratory failure with hypoxia Status: Acute Assessment and Plan: - Continue supplemental oxygen keep ox saturation greater than 90%, currently on 4 L oxygen. was not on any home oxygen (3) Gastroenteritis: Code(s): K52.9 - Noninfective gastroenteritis and colitis, unspecified Status: Acute Assessment and Plan: likely from COVID-19, resolved Additional Plan Diet: Regular DVT prophylaxis: Lovenox GI prophylaxis: Protonix Code status: Full code Disposition: Continue remdesivir while hypoxic, PT/OT consulted Time Spent With Patient Time with patient: 15 - 25 minutes Subjective Date/time seen: 09/21/20 10:55 patient examined today. He is doing well with no new complaints. He still needs the battery replaced for his hearing aids which his family did not bring in yet. He is otherwise in 4 L of oxygen doing well, completing remdesivir/decadron for COVID19. patient denies fever, chills, nausea, vomiting, diarrhea. He endorses nonproductive cough. Review of Systems Review of Systems: All systems reviewed & are unremarkable except as noted in HPI and below Exam Narrative: - GENERAL: Pleasant elderly gentleman appears stated age. sitting comfortably in chair eating breakfast. No acute distress. - EYES: EOMI. Anicteric. - HENT: Moist mucous membranes. - LUNGS: Clear to auscultation bilaterally, no wheezing, decreased at lung bases. Regular respirations on 4 L oxygen by nasal cannula. - CARDIOVASCULAR: Regular rate and rhythm. No murmur. - ABDOMEN: Soft, non-tender and non-distended. - EXTREMITIES: No edema. Peripheral pulses 2+. Non-tender. - NEUROLOGIC: No focal neurological deficits. CN II-XII grossly intact. - PSYCHIATRIC: Awake, Alert and oriented. Appropriate mood and affect. - SKIN: No rashes or lesions. Warm. Objective Data Vital Signs Vital Signs: Vital Signs - 24 hr 09/20/20 12:09 09/20/20 16:00 09/20/20 20:00 Temperature 36.3 C L Pulse Rate 86 Respiratory Rate 20 Blood Pressure 93/60 L Pulse Oximetry 90 94 91 09/21/20 00:00 09/21/20 04:00 Temperature 35.6 C L 36.2 C L Pulse Rate 93 96 Respiratory Rate 18 18 Blood Pressure 132/62 115/58 L Pulse Oximetry 91 92 Intake/Output Intake/Output: Intake & Output 09/18/20 09/19/20 09/20/20 09/21/20 23:59 23:59 23:59 23:59 Intake Total 3300 1080 2730 240 Output Total 400 Balance 3300 1080 2330 240 Meds/Results Medications: Active Medications Generic Name Dose Route Start Last Admin Trade Name Freq PRN Reason Stop Dose Admin Acetaminophen 650 mg 09/18/20 12:40 Acetaminophen 325 Mg Tablet PO Q6H PRN Mild Pain (1-3) or Fever Al Hydrox/Mg Hydrox/Simethicone 30 ml 09/18/20 12:40 09/19/20 17:04 Mag Hydrox/Al Hydrox/Simeth 30 Ml Udc PO 30 ml QID PRN Administration Dyspepsia Dexamethasone 6 mg 09/20/20 08:00 09/21/20 09:56 Dexamethasone 2 Mg Tablet PO 09/29/20 08:01 6 mg DAILY@0800 JINNY Administration Enoxaparin Sodium 40 mg 09/19/20 21:00 09/21/20 09:56 Enoxaparin 40 Mg/0.4 Ml Syringe SUB-Q 40 mg Q12HR JINNY Administration Remdesivir 100 mg in 250 mls @ 250 mls/hr 09/20/20 10:00 09/21/20 09:56 IVPB 09/23/20 10:59 250 mls/hr Q24H JINNY Administration Ondansetron HCl 4 mg 09/18/20 12:40 09/19/20 17:04 Ondansetron Inj 4 Mg/2 Ml Vial IV PUSH 4 mg Q6H PRN Administration Nausea And Vomiting Pantoprazole Sodium 40 mg 09/18/20 12:55 09/21/20 09:56 Pantoprazole Sodium Iv 40 Mg Vial IV PUSH 40 mg QAM JINNY Administration Radiology Results: ITS Impressions Abdomen/Pelvis C
--- NOTE | 2020-09-21 12:20 | P.CDI_ITS ---
CDI Query Clarification Request -09/18 CT abd/pelvis impression:crazy paving pattern in the right midlung lower lobes most concerning for pneumonia particularly COVID pneumonia -CXR impression: groundglass opacities at the lateral right mid to lower lung zone which is suspicious for pneumonia including COVID pneumonia -COVID 19 has been documented and patient currently on O2 at 3L -Pt admitted with complaint of cough and SOB Please clarify which diagnosis most accurately reflects patients condition: * COVID 19 * COVID 19 with pneumonia * Other * Unable to determine <Meron Kilpatrick RN - Last Filed: 09/21/20 12:29> Clarified Diagnosis (1) Pneumonia due to COVID-19 virus: Code(s): U07.1 - COVID-19; J12.82 - Pneumonia due to coronavirus disease 2019 <Meron Kilpatrick RN - Last Filed: 09/21/20 12:29> Status: Acute <Meron Kilpatrick RN - Last Filed: 09/21/20 12:29>
[2020-09-22] VITALS (12 sets, daily range): BP systolic 116–149; BP diastolic 56–75; PULSE 63–87; RESP 16–18; TEMP 36–36.9; O2SAT 64–94
[2020-09-22 06:59] LABS: INR 1.1; Prothrombin Time 14.3 Seconds (11.1-14.7)
[2020-09-22 07:01] LABS: Alanine Aminotransferase 24 U/L (4-50); Estimated CRCL calculation 45 ml/min; Estimated Glomerular Filt Rate 53
[2020-09-22] MEDS: DEXAMETHASONE 2 MG TABLET 6 MG PO (08:50)
[2020-09-22] MEDS: PANTOPRAZOLE SODIUM IV 40 MG VIAL IV PUSH (08:50)
[2020-09-22] MEDS: ENOXAPARIN 40 MG/0.4 ML SYRINGE SUB-Q ×2 (08:50→22:33)
[2020-09-22] MEDS: REMDESIVIR 100 MG/NS 250 ML 100 MG/250 ML BAG 250 MG IVPB (09:47)
[2020-09-22 13:17] LABS: Basophils Percent Auto 0.1 % (0.2-1.2); Hemoglobin 12.2 g/dL (14.0-18.0); Immature Granulocyte Absolute 0.09 K/mm3 (0.00-0.031); Immature Granulocyte Percent A 0.7 % (0-0.5); Lymphocytes Absolute Auto 2.92 K/mm3 (0.9-3.2); Mean Corpuscular Hemoglobin 31.5 pg (26-34); Mean Corpuscular Volume 95.6 fl (80-100); Mean Platelet Volume 9.5 fl (7.4-10.4); Monocytes Absolute Auto 0.4 K/mm3 (0.1-0.6); Monocytes Percent Auto 3.2 % (2.6-8.5); Neutrophils Absolute Auto 10.4 K/mm3 (1.3-6.7); Neutrophils Percent Auto 74.9 % (45.5-73.1); Platelet Count Result 249 k/mm3 (150-375); Red Blood Count 3.87 M/mm3 (4.6-6.20); Red Cell Distribution Width 12.4 % (11.5-14.5); White Blood Count 13.8 K/mm3 (4.5-10.0)
[2020-09-22 13:30] LABS: Alanine Aminotransferase 25 U/L (4-50); Albumin Level 2.6 g/dL (3.5-5.1); Alkaline Phosphatase 61 U/L (38-126); Anion Gap 6 mmol/L (8-16); Aspartate Amino Transferase 25 U/L (17-59); Bilirubin,Total 0.4 mg/dL (0.2-1.3); Blood Urea Nitrogen 38 mg/dL (9-20); CRP 1.8 mg/dL (<1.0); Carbon Dioxide 25 mmol/L (22-30); Chloride 107 mmol/L (98-107); Estimated CRCL calculation 49 ml/min; Estimated Glomerular Filt Rate 58; Glucose 122 mg/dL (65-110); Lactate Dehydrogenase 869 U/L (313-618); Potassium 4.6 mmol/L (3.4-5.0); Sodium 138 mmol/L (137-145)
[2020-09-22 13:33] LABS: Lymphocytes Percent Auto 21.1 % (18.3-44.2)
--- NOTE | 2020-09-22 15:29 | PM.IMPN ---
Progress Note: A&P Assessment and Plan (1) Pneumonia due to COVID-19 virus: Code(s): U07.1 - COVID-19; J12.82 - Pneumonia due to coronavirus disease 2019 Status: Acute Assessment and Plan: - acute worsening of hypoxia, chest x-ray completed today which the chest signs of mucous plugging on right side. Consulting acid bath mixer for possible bronchoscopy - continuing with remdesivir and Decadron - inflammatory markers appear to be stable, CRP is elevated at 1.8. At this time with possible mucous plugging as etiology of worsening hypoxia will hold off on tocilizumab. - diagnosed 09/18/2020 (2) Acute respiratory failure with hypoxia: Code(s): J96.01 - Acute respiratory failure with hypoxia Status: Acute Assessment and Plan: on 7 L oxygen, was on 3 L yesterday, see above for plan (3) KATERYNA (acute kidney injury): Code(s): N17.9 - Acute kidney failure, unspecified Status: Acute Assessment and Plan: likely prerenal, resolved (4) Gastroenteritis: Code(s): K52.9 - Noninfective gastroenteritis and colitis, unspecified Status: Acute Assessment and Plan: appears resolved, from COVID-19 Additional Plan Diet: Regular DVT prophylaxis: Lovenox GI prophylaxis: Protonix Code status: Full code Disposition: Continue remdesivir while hypoxic, PT/OT consulted, pulmonary consult Time Spent With Patient Time with patient: 15 - 25 minutes Subjective Date/time seen: 09/22/20 15:29 patient examined. He has no new complaints however his oxygen requirements have increased from 3 L to 7 L overnight. Inflammatory markers are slightly elevated, CRP up to 1.8. Chest x-ray was concerning for possible mucous plugging and right lung volume loss. Patient denies fever, chills, nausea, vomiting, diarrhea, chest pain. We discussed finishing remdesivir course. Review of Systems Review of Systems: All systems reviewed & are unremarkable except as noted in HPI and below Exam Narrative: - GENERAL: Pleasant elderly gentleman appears stated age. breathing at regular rate on high-flow oxygen 7 L. - EYES: EOMI. Anicteric. - HENT: Moist mucous membranes. - LUNGS: diminished lung sounds right-sided As well as bases, no wheezing appreciated. - CARDIOVASCULAR: Regular rate and rhythm. No murmur. - ABDOMEN: Soft, non-tender and non-distended. - EXTREMITIES: No edema. Peripheral pulses 2+. Non-tender. - NEUROLOGIC: No focal neurological deficits. CN II-XII grossly intact. - PSYCHIATRIC: Awake, Alert. Appropriate mood and affect. - SKIN: No rashes or lesions. Warm. Objective Data Vital Signs Vital Signs: Vital Signs - 24 hr 09/21/20 16:00 09/21/20 16:05 09/21/20 20:00 Temperature 36.8 C Pulse Rate 92 76 Respiratory Rate 16 16 Blood Pressure 105/59 L Pulse Oximetry 91 92 90 09/21/20 20:07 09/22/20 00:07 09/22/20 04:00 Temperature 36.3 C L 36.6 C 36.0 C L Pulse Rate 71 63 71 Respiratory Rate 18 18 18 Blood Pressure 102/51 L 127/56 L 133/69 Pulse Oximetry 90 91 90 09/22/20 04:32 09/22/20 08:00 Temperature 36.6 C Pulse Rate 65 65 Respiratory Rate 16 Blood Pressure 149/75 H Pulse Oximetry 90 90 Intake/Output Intake/Output: Intake & Output 09/19/20 09/20/20 09/21/20 09/22/20 23:59 23:59 23:59 23:59 Intake Total 1080 2730 1170 580 Output Total 400 400 Balance 1080 2330 1170 180 Meds/Results Medications: Active Medications Generic Name Dose Route Start Last Admin Trade Name Freq PRN Reason Stop Dose Admin Acetaminophen 650 mg 09/18/20 12:40 Acetaminophen 325 Mg Tablet PO Q6H PRN Mild Pain (1-3) or Fever Al Hydrox/Mg Hydrox/Simethicone 30 ml 09/18/20 12:40 09/19/20 17:04 Mag Hydrox/Al Hydrox/Simeth 30 Ml Udc PO 30 ml QID PRN Administration Dyspepsia Dexamethasone 6 mg 09/20/20 08:00 09/22/20 08:50 Dexamethasone 2 Mg Tablet PO 09/29/20 08:01 6 mg DAILY@0800 JINNY Administration Enoxaparin So
--- NOTE | 2020-09-22 16:15 | PM.CNPUL ---
Assessment and Plan Assessment and plan (1) Pneumonia due to COVID-19 virus: Code(s): U07.1 - COVID-19; J12.82 - Pneumonia due to coronavirus disease 2019 Status: Acute Assessment and Plan: Patient tested positive for COVID-19 on 09/18 and started on remdesivir 09/19 and dexamethasone 09/20. - Remdesivir for 10 days Unless he should recover and tolerate room air with rest, ambulation and while sleeping. - Dexamethasone 6 mg IV for 10 days - Continuous pulse oximetry - Prone positioning as tolerated. - Avoid any fluid overload. - Patient with right greater than left interstitial alveolar infiltrates with volume loss on the right with possible atelectasis or mucus plugging. At this time I will start albuterol and ipratropium nebulizers q.4 hours. I will check a chest x-ray in the morning. - I will check an ABG to assess for hypecarbia. - I will check a D-dimer. If the D-dimer is positive I would give 500 ml IVF and perform a CT angiogram of the chest now his creatinine has improved from 1.60-1.20 today. If D dimer positive will check lower and upper dopplers on 09/23. 09/22 Goal saturations are 90-94% and will utilize nasal cannula oxygen to achieve this. Patient may require high-flow oxygen, BiPAP, or mechanical ventilation. If he requires high-flow oxygen or BiPAP patient should receive tocilizumab. Discussed with Dr. Shelley, will follow with you. (2) Acute respiratory failure with hypoxia: Code(s): J96.01 - Acute respiratory failure with hypoxia Status: Acute Assessment and Plan: Etiology of hypoxic respiratory failure is likely COVID pneumonia. I will check an BNP. I will check an echocardiogram to ensure normal LV function and normal aortic valve function. 09/20 16:00 4 L NC sats 94% 09/21 16:00 7 L NC sats 92% 09/22 16:00 7 L NC sats 90% History of Present Illness History of Present Illness Consult date: 09/22/20 Requesting physician: Jose Shelley DO Reason for consult: hypoxemia and other ([facility]IVD) Chief complaint: KATERYNA, Dehydration Narrative: 79-year-old male with no past medical history who was on vaccinated for COVID and had GI symptoms for approximately 1 week prior to admission on 09/18/2020. Patient had a chest x-ray on 09/18 demonstrating right interstitial alveolar infiltrates and had a CT of the abdomen which demonstrated that the lung images showed right greater than left multifocal interstitial alveolar ground-glass infiltrates. Patient was found to be COVID positive and started on REM decibel air on 09/19/2020 and dexamethasone on 09/20/2020. Patient had worsening oxygenation from 2 L on 09/19 21-7 L on 09/21/2020. This morning the patient remained on 7 L nasal cannula chest x-ray was obtained which showed right greater than left interstitial alveolar infiltrates with volume loss. I was consulted. 09/24/20 Patient tells me that he is feeling much better since he was admitted to the hospital. Patient denies shortness of breath at rest. He denies chest pain. Patient has a cough that is dry and no hemoptysis. Patient is currently on 7 L nasal cannula saturations 90%. Review of Systems Review of Systems: All systems reviewed & are unremarkable except as noted in HPI and below Eyes: Eyes: Reports no additional eye complaints ENT: Reports system reviewed and no additional complaints, except as documented Cardiovascular: Cardiovascular: Reports no additional cardiovascular complaints Respiratory: Respiratory: Reports no additional respiratory complaints Gastrointestinal: Gastrointestinal: Reports no additional gastrointestinal complaints Musculoskeletal: Musculoskeletal: Reports no additional musculoskeletal complaints Integumentary/Breasts: Skin/Breast: Reports system reviewed and no additional complaints, except as docu Neurologic: Reports system reviewed and no additional complaints, except as documented Psychiatric: Psychiatric: Reports no additiona
[2020-09-22 16:46] LABS: D Dimer 1.92 ug/mL (<0.48)
[2020-09-22 16:52] LABS: NT Pro B Type Natriuretic Pept 915 pg/mL (5-100)
[2020-09-22] MEDS: ALBUTEROL SULFATE NEB 2.5 MG/0.5 ML INH INHALATION ×2 (17:08→21:45)
[2020-09-22] MEDS: IPRATROPIUM BR 0.02% INH SOLN 0.5 MG/2.5 ML VIAL INHALATION ×2 (17:08→21:46)
[2020-09-22 17:11] LABS: Base Excess ABG -0.4 mEq/l (+/-2.0); Fractional Inspired Oxygen 48 %; HCO3 ABG 22.6 mEq/l (22.0-26.0); Oxygen Content ABG 16.6 %vol (16.0-22.0); Oxyhemoglobin 91.9 % THb (90.0-100.0); PCO2 ABG 31.7 mmHg (35.0-45.0); PO2 ABG 64.4 mmHg (80.0-100.0); PO2 FiO2 Ratio Arterial Blood 1.34 %; Total Hemoglobin 12.8 g/dL (12.0-18.0)
[2020-09-22 17:12] LABS: Device HIGH FLOW NASAL CANN; Modified Allen's Test Pass; Site Drawn RIGHT RADIAL
[2020-09-23] VITALS (32 sets, daily range): BP systolic 126–141; BP diastolic 44–82; PULSE 60–85; RESP 14–26; TEMP 36.4–36.7; O2SAT 87–98
--- NOTE | 2020-09-23 | ECHO_ITS ---
Patient Info Name: Negrito Valdez Age: 79 years : 1940 Gender: Male Ht: 72 in Wt: 180 lbs BSA: 2.04 m2 HR: 74 bpm BP: 128 / 49 mmHg Technical Quality: Fair Exam Date: 09/23/2020 9:59 AM Exam Location: [facility] Patient Status: Inpatient Admit Date: 09/19/2020 Staff Ordering Physician: Jose Shelley DO Chemical Plant Operator Supervisor: Kelsy Lundberg RDCS Attending Provider: Chapo Hagan MD Referring Physician: Daphney WILLIS; Exam Type: CA echo doppler color flow Study Info Indications R06.00 - Dyspnea, unspecified Complete two-dimensional, color flow and Doppler transthoracic echocardiogram is performed. Summary 1. Complete two-dimensional, color flow and Doppler transthoracic echocardiogram is performed. 2. Left ventricular chamber dimension is normal. 3. Left ventricular systolic function is normal, estimated at 55-60%. 4. There is mildly increased left ventricular wall thickness. 5. The left ventricular diastolic function is grade I diastolic dysfunction. 6. E/e' 12 is mildly elevated. 7. There is mild to moderate aortic valve regurgitation. 8. The mitral valve has mildly calcified annulus. 9. No pulmonary hypertension, estimated pulmonary arterial systolic pressure is 29 mmHg. 10. The aortic root size at the sinus of Valsalva is borderline dilated at 4.0 cm.. Left Ventricle E/e' 12 is mildly elevated. Left ventricular chamber dimension is normal. Left ventricular systolic function is normal, estimated at 55-60%. There is mildly increased left ventricular wall thickness. The left ventricular diastolic function is grade I diastolic dysfunction. Right Ventricle Right ventricular chamber dimension is normal. Right ventricular systolic function is normal. Left Atria Left atrial chamber dimension is normal. Right Atria Right atrial chamber dimension is normal. Aortic Valve The aortic valve is trileaflet. There is no aortic valve stenosis. There is mild to moderate aortic valve regurgitation. Pulmonic Valve There is no pulmonic regurgitation. Mitral Valve The mitral valve has mildly calcified annulus. There is no mitral valve stenosis. There is no mitral valve regurgitation. Tricuspid Valve There is no tricuspid valve regurgitation. No pulmonary hypertension, estimated pulmonary arterial systolic pressure is 29 mmHg. Pericardium/Pleural There is no pericardial effusion. Inferior Vena Cava Normal inferior vena cava with >50% collapse upon inspiration consistent with normal right atrial pressure, 5 mmHg. Aorta The aortic root size at the sinus of Valsalva is borderline dilated at 4.0 cm.. Left Ventricular Outflow Tract Name Value Normal LVOT 2D LVOT Diameter 2.1 cm LVOT Doppler LVOT Peak Gradient 5 mmHg LVOT Mean Gradient 2 mmHg LVOT VTI 22 cm LVOT VTI/AV VTI Ratio 0.9 LVOT Stroke Volume 77 ml LVOT CO 5.6 l/min LVOT CI 2.8 l/min/m2
[2020-09-23] MEDS: ALBUTEROL SULFATE NEB 2.5 MG/0.5 ML INH INHALATION ×7 (01:37→23:24)
[2020-09-23] MEDS: IPRATROPIUM BR 0.02% INH SOLN 0.5 MG/2.5 ML VIAL INHALATION ×7 (01:37→23:24)
--- NOTE | 2020-09-23 05:53 | PC.NURSE ---
pt stood up to use urinal around 0430 and desatted to 79% with no significant improvement within 2 mins, (low 80s).. bumped him up to 10L HF NC with humidity and he is 92% at this time. Pt stated he felt great throughout this...
[2020-09-23 06:46] LABS: Hematocrit 37.6 % (42.0-52.0); Hemoglobin 12.1 g/dL (14.0-18.0); Mean Corpuscular HGB Conc 32.2 g/dl (32-36); Mean Corpuscular Hemoglobin 30.8 pg (26-34); Mean Corpuscular Volume 95.7 fl (80-100); Mean Platelet Volume 9.8 fl (7.4-10.4); Platelet Count Result 226 k/mm3 (150-375); Red Blood Count 3.93 M/mm3 (4.6-6.20); Red Cell Distribution Width 12.2 % (11.5-14.5); White Blood Count 13.2 K/mm3 (4.5-10.0)
[2020-09-23 06:57] LABS: INR 1.1; Prothrombin Time 13.8 Seconds (11.1-14.7)
[2020-09-23 06:58] LABS: Alanine Aminotransferase 26 U/L (4-50); Anion Gap 4 mmol/L (8-16); Blood Urea Nitrogen 36 mg/dL (9-20); Carbon Dioxide 25 mmol/L (22-30); Chloride 109 mmol/L (98-107); Estimated CRCL calculation 53 ml/min; Estimated Glomerular Filt Rate > 60; Glucose 93 mg/dL (65-110); Potassium 4.6 mmol/L (3.4-5.0); Sodium 138 mmol/L (137-145)
[2020-09-23 07:16] LABS: Atypical Lymphocytes Present; Band Neutrophils Percent 1 % (0-6); Lymphocytes Absolute Manual 1.58 K/mm3 (1.1-4.5); Neutrophils Absolute Manual 11.61 K/mm3 (1.3-6.7); Neutrophils Percent Manual 87 % (46-73); Platelet Estimate Adequate (Adequate); Total Cells Counted 100
--- NOTE | 2020-09-23 08:04 | PM.PNPUL ---
Progress Note: A&P Assessment and Plan (1) Pneumonia due to COVID-19 virus: Code(s): U07.1 - COVID-19; J12.82 - Pneumonia due to coronavirus disease 2019 Status: Acute Assessment and Plan: Patient tested positive for COVID-19 on 09/18 and started on remdesivir 09/19 and dexamethasone 09/20. - Remdesivir for 10 days Unless he should recover and tolerate room air with rest, ambulation and while sleeping. - Dexamethasone 6 mg PO or IV for 10 days - Continuous pulse oximetry - Prone positioning as tolerated. - Avoid any fluid overload. - Patient with right greater than left interstitial alveolar infiltrates with volume loss on the right with possible atelectasis or mucus plugging. At this time I will start albuterol and ipratropium nebulizers q.4 hours. I will check a chest x-ray in the morning. - I will check an ABG to assess for hypecarbia. results 7.47/32/64. There is no evidence of hypercarbia. - I will check a D-dimer. 09/23 Goal saturations are 90-94% and will utilize nasal cannula oxygen to achieve this. Patient may require high-flow oxygen, BiPAP, or mechanical ventilation. If he requires high-flow oxygen or BiPAP patient should receive tocilizumab. ABG on 7 L high-flow nasal cannula was pH of 7.47//64. There is no evidence of hypercarbia. 09/24 Clinically he is unchanged but his oxygenation is worse now requiring 14 L nasal cannula with saturations 94%. D-dimer was 1.[address] angiogram has been ordered. Upper and lower extremity Dopplers have been ordered. will follow with you. (2) Acute respiratory failure with hypoxia: Code(s): J96.01 - Acute respiratory failure with hypoxia Status: Acute Assessment and Plan: Etiology of hypoxic respiratory failure is likely COVID pneumonia. Elevated BNP and echo is ordered to assess LV function and valve function. Would not give lasix as dye load from CTA later today. 09/20 16:00 4 L NC sats 94% 09/21 16:00 7 L NC sats 92% 09/22 16:00 7 L NC sats 90% 09/23 08:00 14 L NC sats 94% Subjective Date/time seen: 09/23/20 08:04 Interval history: 79-year-old male with no past medical history who was on vaccinated for COVID and had GI symptoms for approximately 1 week prior to ED visit and admission on 09/18/2020. Patient had a chest x-ray on 09/18 demonstrating right interstitial alveolar infiltrates and had a CT of the abdomen which demonstrated that the lung images showed right greater than left multifocal interstitial alveolar ground-glass infiltrates. Patient was found to be COVID positive and started on REM decibel air on 09/19/2020 and dexamethasone on 09/20/2020. Patient had worsening oxygenation from 2 L on 09/19 20-7 L on 09/21/2020. This morning the patient remained on 7 L nasal cannula chest x-ray was obtained which showed right greater than left interstitial alveolar infiltrates with volume loss. I was consulted on 09/24. 09/23/20 Patient tells me that he is feeling much better since he was admitted to the hospital. Patient denies shortness of breath at rest. He denies chest pain. Patient has a cough that is dry and no hemoptysis. Patient is currently on 7 L nasal cannula saturations 90%. 09/24 Patient tells me that he is in no respiratory distress at rest and that he is feeling much better than when he arrived to the hospital. No chest pain. Dry cough without hemoptysis. Patient is currently on 14 L high-flow nasal cannula with saturations 94%. Review of Systems Review of Systems: All systems reviewed & are unremarkable except as noted in HPI and below Eyes: Eyes: Reports no additional eye complaints ENT: Reports system reviewed and no additional complaints, except as documented Cardiovascular: Cardiovascular: Reports no additional cardiovascular complaints Respiratory: Respiratory: Reports no additional respiratory complaints Gastrointestinal: Gastrointestinal: Reports no additional gastrointestinal complaints [facility] [place]
[2020-09-23] MEDS: REMDESIVIR 100 MG/NS 250 ML 100 MG/250 ML BAG 250 MG IVPB (09:30)
[2020-09-23] MEDS: DEXAMETHASONE 2 MG TABLET 6 MG PO (09:31)
[2020-09-23] MEDS: PANTOPRAZOLE SODIUM IV 40 MG VIAL IV PUSH (09:31)
[2020-09-23] MEDS: ENOXAPARIN 40 MG/0.4 ML SYRINGE SUB-Q ×2 (09:31→20:40)
--- NOTE | 2020-09-23 11:20 | PC.NURSE ---
Patient arrived via bed to ICU#11 with Rn and patient tech at bedside. Patient transferred to ICU bed without issue.
[2020-09-23 12:42] LABS: D Dimer 0.29 ug/mL (<0.48)
[2020-09-23 13:12] LABS: CRP 1.7 mg/dL (<1.0); Lactate Dehydrogenase 1024 U/L (313-618)
--- NOTE | 2020-09-23 14:40 | PCPTNOTE ---
PT held today due to change in medical status. Patient transferred from 3 med/surg to ICU/IMU. PT will hold therapy until further orders are received.
--- NOTE | 2020-09-23 18:28 | PM.IMPN ---
Progress Note: A&P Assessment and Plan (1) Pneumonia due to COVID-19 virus: Code(s): U07.1 - COVID-19; J12.82 - Pneumonia due to coronavirus disease 2019 Status: Acute Assessment and Plan: -Diagnosed 09/18/2020 - completed 5 days of remdesivir, continuing Decadron for 10 day course - inflammatory markers downtrending D-dimers normal, CRP down to 1.7, will hold off on tocilizumab - consulting independent trader for concern mucous plugging with right lung whiteout on chest x-ray for possible bronchoscopy - on 15 L high-flow oxygen, oxygen saturation 95% - CTA chest shows ground glass opacities diffusely, right lung consistent with asymmetrical pulmonary edema or pneumonia. no PE found. - upper lower extremity Dopplers negative for DVT - echocardiogram shows normal systolic function EF 55-60%, grade 1 diastolic dysfunction - started on some breathing treatments q.4 hours nebs (2) Acute respiratory failure with hypoxia: Code(s): J96.01 - Acute respiratory failure with hypoxia Status: Acute Assessment and Plan: as above (3) KATERYNA (acute kidney injury): Code(s): N17.9 - Acute kidney failure, unspecified Status: Acute Assessment and Plan: resolved, prerenal (4) Gastroenteritis: Code(s): K52.9 - Noninfective gastroenteritis and colitis, unspecified Status: Acute Assessment and Plan: resolved Additional Plan Diet: Regular DVT prophylaxis: Lovenox GI prophylaxis: Protonix Code status: Full code Disposition: in ICU as IMU overflow, continue steroids, disposition pending clinical course Time Spent With Patient Time with patient: 25 - 35 minutes Subjective Date/time seen: 09/23/20 18:28. Patient examined this morning. He went from 7 L to 15 L oxygen on high-flow. I was told he was not able to have the CTA because he could not lay flat. He started developing some chest tightness. with rapid clinical deterioration patient was moved to IMU For further management. he will be in ICU as IMU overflow. We discussed if he further due to relates that he may be placed on ventilator, which he agrees to. he endorses dyspnea and chest tightness. He denies fevers, chills, nausea, vomiting, diarrhea. Review of Systems Review of Systems: All systems reviewed & are unremarkable except as noted in HPI and below Exam Narrative: - GENERAL: Frail older man in respiratory distress on high-flow oxygen 15 L - EYES: EOMI. Anicteric. - HENT: Moist mucous membranes. - LUNGS: diminished lung sounds throughout - CARDIOVASCULAR: Regular rate and rhythm. No murmur. No JVD. - ABDOMEN: Soft, non-tender and non-distended. No palpable masses. - EXTREMITIES: No edema. Peripheral pulses 2+. Non-tender. - NEUROLOGIC: No focal neurological deficits. CN II-XII grossly intact. - PSYCHIATRIC: Awake, Alert and oriented x 3. Appropriate mood and affect. - SKIN: No rashes or lesions. Warm. - LYMPH: No cervical lymphadenopathy. Objective Data Vital Signs Vital Signs: Vital Signs - 24 hr 09/22/20 20:00 09/22/20 21:46 09/22/20 21:47 Temperature 36.3 C L Pulse Rate 71 86 Respiratory Rate 18 18 Blood Pressure 116/61 Pulse Oximetry 90 90 09/22/20 21:57 09/23/20 00:00 09/23/20 01:37 Temperature 36.7 C Pulse Rate 85 62 85 Respiratory Rate 18 18 16 Blood Pressure 132/44 L Pulse Oximetry 93 09/23/20 01:55 09/23/20 04:00 09/23/20 04:49 Temperature 36.4 C Pulse Rate 85 60 85 Respiratory Rate 16 18 18 Blood Pressure 128/49 L Pulse Oximetry 95 09/23/20 04:54 09/23/20 04:56 09/23/20 05:55 Temperature Pulse Rate 64 85 Respiratory Rate 18 18 Blood Pressure Pulse Oximetry 90 92 09/23/20 06:43 09/23/20 08:00 09/23/20 08:50 Temperature Pulse Rate 72 Respiratory Rate 20 Blood Pressure Pulse Oximetry 92 94 87 L 09/23/20 09:00 09/23/20 09:04 09/23/20 09:05 Temperature 36.7 C Pulse Rate 76 63 Respiratory Rate 20 14 B
[2020-09-24] VITALS (28 sets, daily range): BP systolic 131–165; BP diastolic 70–86; PULSE 65–95; RESP 14–26; TEMP 36.4–36.9; O2SAT 89–96
[2020-09-24 05:06] LABS: Basophils Percent Auto 0.1 % (0.2-1.2); Hematocrit 36.4 % (42.0-52.0); Hemoglobin 11.9 g/dL (14.0-18.0); Immature Granulocyte Absolute 0.12 K/mm3 (0.00-0.031); Lymphocytes Absolute Auto 2.96 K/mm3 (0.9-3.2); Lymphocytes Percent Auto 25.5 % (18.3-44.2); Mean Corpuscular HGB Conc 32.7 g/dl (32-36); Mean Corpuscular Hemoglobin 31.1 pg (26-34); Monocytes Absolute Auto 0.5 K/mm3 (0.1-0.6); Neutrophils Absolute Auto 8.1 K/mm3 (1.3-6.7); Neutrophils Percent Auto 69.4 % (45.5-73.1); Platelet Count Result 145 k/mm3 (150-375); Red Blood Count 3.83 M/mm3 (4.6-6.20); Red Cell Distribution Width 12.2 % (11.5-14.5); White Blood Count 11.6 K/mm3 (4.5-10.0)
[2020-09-24 05:15] LABS: Alanine Aminotransferase 31 U/L (4-50); Albumin Level 2.4 g/dL (3.5-5.1); Alkaline Phosphatase 64 U/L (38-126); Anion Gap 5 mmol/L (8-16); Aspartate Amino Transferase 48 U/L (17-59); Bilirubin,Total 0.6 mg/dL (0.2-1.3); Blood Urea Nitrogen 29 mg/dL (9-20); Calcium 7.8 mg/dL (8.4-10.2); Carbon Dioxide 24 mmol/L (22-30); Chloride 109 mmol/L (98-107); Estimated CRCL calculation 49 ml/min; Estimated Glomerular Filt Rate 58; Glucose 98 mg/dL (65-110); Potassium 4.5 mmol/L (3.4-5.0); Sodium 138 mmol/L (137-145)
[2020-09-24 06:34] LABS: Burr Cells 2+ (NORMAL); Ovalocytes 1+ (NORMAL)
[2020-09-24] MEDS: ALBUTEROL SULFATE NEB 2.5 MG/0.5 ML INH INHALATION ×4 (08:05→20:02)
[2020-09-24] MEDS: IPRATROPIUM BR 0.02% INH SOLN 0.5 MG/2.5 ML VIAL INHALATION ×4 (08:05→20:03)
[2020-09-24] MEDS: ENOXAPARIN 40 MG/0.4 ML SYRINGE SUB-Q ×2 (08:37→19:58)
[2020-09-24] MEDS: DEXAMETHASONE 2 MG TABLET 6 MG PO (08:39)
[2020-09-24] MEDS: PANTOPRAZOLE SODIUM IV 40 MG VIAL IV PUSH (08:41)
--- NOTE | 2020-09-24 11:38 | PCPTNOTE ---
EMR reviewed; pt is in ICU with continued hypoxia issues. continue to HOLD PT; await new orders for PT to continue.
--- NOTE | 2020-09-24 14:17 | PM.IMPN ---
Progress Note: A&P Assessment and Plan (1) Pneumonia due to COVID-19 virus: Code(s): U07.1 - COVID-19; J12.82 - Pneumonia due to coronavirus disease 2019 Status: Acute Assessment and Plan: - diagnosed 09/18/2020, unclear symptom onset date - worsening of hypoxia, now moving to airflow for heated high-flow oxygen. With acute decompensation will add tocilizumab. he completed remdesivir 5 days, and will continue 10 days of Decadron. He is amenable to intubation if needed - inflammatory markers appear to be stable, CRP is elevated at 1.8. D-dimer was negative as well. CTA chest was negative for pulmonary embolism. - [employer] consulted for possible bronchoscopy of right lung whiteout, will repeat chest x-ray in a.m. - holding off on Lasix with IV contrast study yesterday (2) Acute respiratory failure with hypoxia: Code(s): J96.01 - Acute respiratory failure with hypoxia Status: Acute Assessment and Plan: see above (3) KATERYNA (acute kidney injury): Code(s): N17.9 - Acute kidney failure, unspecified Status: Acute Assessment and Plan: Resolved Additional Plan Diet: Regular DVT prophylaxis: Lovenox GI prophylaxis: Protonix Code status: Full code Disposition: Continue remdesivir while hypoxic, PT/OT consulted, pulmonary consult Time Spent With Patient Time with patient: 25 - 35 minutes Subjective Date/time seen: 09/24/20 14:17. Patient examined he has no new complaints. This morning he was on 15 L high-flow oxygen with non-rebreather over it. Nurse states that he has been removing in non-rebreather. I discussed with patient that we will try Airvo which he is agreeable to. Also with his acute decompensation will add tocilizumab. he completed 5 days remdesivir and is continuing 10 days Decadron. Yesterday afternoon CT was done which was negative for PE. Venous duplex of lower extremities and upper extremities also was negative for DVT. [employer] Journeyman Dr. Schreiber has been consulted. He denies fever, chills, nausea, vomiting, diarrhea. He endorses abdominal pain with coughing. Review of Systems Review of Systems: All systems reviewed & are unremarkable except as noted in HPI and below Exam Narrative: - GENERAL: Frail older man in respiratory distress on high-flow oxygen 15 L and NRB overlaying NC - EYES: EOMI. Anicteric. - HENT: Moist mucous membranes. - LUNGS: diminished lung sounds throughout - CARDIOVASCULAR: Regular rate and rhythm. No murmur. No JVD. - ABDOMEN: Soft, non-tender and non-distended. No palpable masses. - EXTREMITIES: No edema. Peripheral pulses 2+. Non-tender. - NEUROLOGIC: No focal neurological deficits. CN II-XII grossly intact. - PSYCHIATRIC: Awake, Alert and oriented. Appropriate mood and affect. - SKIN: No rashes or lesions. Warm. - LYMPH: No cervical lymphadenopathy. Objective Data Vital Signs Vital Signs: Vital Signs - 24 hr 09/23/20 16:00 09/23/20 16:27 09/23/20 16:41 Temperature 36.4 C L Pulse Rate 71 73 67 Respiratory Rate 20 16 18 Blood Pressure 141/79 H Pulse Oximetry 96 92 09/23/20 16:49 09/23/20 18:00 09/23/20 19:16 Temperature Pulse Rate 68 70 Respiratory Rate 17 Blood Pressure Pulse Oximetry 94 88 L 09/23/20 19:53 09/23/20 20:00 09/23/20 20:01 Temperature 36.6 C Pulse Rate 75 80 76 Respiratory Rate 20 25 H 18 Blood Pressure 130/74 Pulse Oximetry 93 95 09/23/20 23:26 09/23/20 23:33 09/24/20 00:00 Temperature 36.4 C Pulse Rate 66 68 68 Respiratory Rate 18 18 26 H Blood Pressure 145/75 H Pulse Oximetry 94 09/24/20 02:00 09/24/20 03:40 09/24/20 03:45 Temperature 36.4 C Pulse Rate 66 71 Respiratory Rate 26 H Blood Pressure 156/77 H Pulse Oximetry 93 92 09/24/20 04:00 09/24/20 08:00 09/24/20 08:05 Temperature 36.6 C Pulse Rate 73 83 78 Respiratory Rate 25 H 18 Blood Pressure 136/85 Pulse Oximetry 93 09/24/20 08:17 09/24/20 10:00
--- NOTE | 2020-09-24 14:51 | PM.PNPUL ---
Progress Note: A&P Assessment and Plan (1) Pneumonia due to COVID-19 virus: Code(s): U07.1 - COVID-19; J12.82 - Pneumonia due to coronavirus disease 2019 Status: Acute Assessment and Plan: Patient tested positive for COVID-19 on 09/18 and started on remdesivir 09/19 and dexamethasone 09/20. - Remdesivir for 10 days unless he recovers sooner and can tolerate room air with rest, ambulation and while sleeping. - Dexamethasone 6 mg PO or IV for 10 days - Continuous pulse oximetry - Prone positioning as tolerated. - Avoid any fluid overload. - Patient with right greater than left interstitial alveolar infiltrates with volume loss on the right with possible atelectasis or mucus plugging. Continue albuterol and ipratropium nebulizers q.4 hours and add Cornet valve to help clear secretions. He is coughing without getting his airway totally cleared. - ABG did not show elevated pCO2; 7.47/32/64. - repeat D-dimer is normal 0.29 09/23 Goal saturations are 90-94% and will utilize nasal cannula oxygen to achieve this. Patient may require high-flow oxygen, BiPAP, or mechanical ventilation. If he requires high-flow oxygen or BiPAP patient should receive tocilizumab. ABG on 7 L high-flow nasal cannula was pH of 7.47/32/64. There is no evidence of hypercarbia. 09/24 Clinically he worsened with change to AirVo 60 L/min and 90% FiO2, saturation at best 92%. I rolled him onto the left side to try to improve V/Q matching; this did not help. He is better on his back with head of bed > 45 degrees. (2) Acute respiratory failure with hypoxia: Code(s): J96.01 - Acute respiratory failure with hypoxia Status: Acute Assessment and Plan: Etiology of hypoxic respiratory failure is likely COVID pneumonia. Elevated BNP and echo is ordered to assess LV function and valve function. Would not give lasix as dye load from CTA later today. 09/20 16:00 4 L NC sats 94% 09/21 16:00 7 L NC sats 92% 09/22 16:00 7 L NC sats 90% 09/23 08:00 14 L NC sats 94% 09/24 14:00 AirVo 60 L/min and 90%, sat is at best 92%, drops wquickly with activity. Subjective Date/time seen: 09/24/20 14:51 Interval history: Hospital Day # 7 79-year-old male now on AirVo with saturation 88-92%; he drops his saturation quickly with any exertion. He had negative medical history, was vaccinated for COVID; developed GI symptoms for approximately 1 week prior to ED visit and admission on 09/18/2020. CXR 09/18 demonstrating right interstitial alveolar infiltrates; CT of the abdomen which demonstrated that the lung images showed right greater than left multifocal interstitial alveolar ground-glass infiltrates. Patient was found to be COVID positive and started on Remdesivir 09/19/2020 and dexamethasone on 09/20/2020. Patient had worsening oxygenation from 2 L on 09/19 20-7 L on 09/21/2020. 09/23/20 Patient tells me that he is feeling much better since he was admitted to the hospital. Patient denies shortness of breath at rest. He denies chest pain. Patient has a cough that is dry and no hemoptysis. Patient is currently on 7 L nasal cannula saturations 90%. 09/24 He is in ICU 11, no hearing aids in; he is not in pain. He is eating adequately, making appropriate amounts of urine. He is coughing with yellow sputum. He seems to not be able to get all of it expectorated. Will try Cornet valve to assist with clearing airway. No hemoptysis. Patient is currently on 14 L high-flow nasal cannula with saturations 94%. Review of Systems Review of Systems: All systems reviewed & are unremarkable except as noted in HPI and below Eyes: Eyes: Reports no additional eye complaints ENT: Reports system reviewed and no additional complaints, except as documented Cardiovascular: Cardiovascular: Reports no additional cardiovascular complaints Respirato
[2020-09-25] VITALS (27 sets, daily range): BP systolic 99–149; BP diastolic 38–82; PULSE 61–90; RESP 14–27; TEMP 36.4–36.8; O2SAT 70–96
[2020-09-25] MEDS: ALBUTEROL SULFATE NEB 2.5 MG/0.5 ML INH INHALATION ×6 (01:04→21:25)
[2020-09-25] MEDS: IPRATROPIUM BR 0.02% INH SOLN 0.5 MG/2.5 ML VIAL INHALATION ×6 (01:04→21:26)
[2020-09-25 04:44] LABS: Basophils Percent Auto 0.3 % (0.2-1.2); Eosinophils Percent Auto 0.2 % (0-4.4); Hematocrit 35.2 % (42.0-52.0); Hemoglobin 11.7 g/dL (14.0-18.0); Immature Granulocyte Absolute 0.08 K/mm3 (0.00-0.031); Immature Granulocyte Percent A 0.9 % (0-0.5); Lymphocytes Percent Auto 29.9 % (18.3-44.2); Mean Corpuscular HGB Conc 33.2 g/dl (32-36); Mean Corpuscular Hemoglobin 30.9 pg (26-34); Mean Corpuscular Volume 92.9 fl (80-100); Monocytes Absolute Auto 0.4 K/mm3 (0.1-0.6); Monocytes Percent Auto 4.3 % (2.6-8.5); Neutrophils Percent Auto 64.4 % (45.5-73.1); Platelet Count Result 154 k/mm3 (150-375); Red Blood Count 3.79 M/mm3 (4.6-6.20); Red Cell Distribution Width 12.2 % (11.5-14.5); White Blood Count 9.4 K/mm3 (4.5-10.0)
[2020-09-25 05:00] LABS: Alanine Aminotransferase 31 U/L (4-50); Albumin Level 2.3 g/dL (3.5-5.1); Alkaline Phosphatase 64 U/L (38-126); Anion Gap 4 mmol/L (8-16); Aspartate Amino Transferase 54 U/L (17-59); Bilirubin,Total 0.8 mg/dL (0.2-1.3); Blood Urea Nitrogen 29 mg/dL (9-20); CRP 3.1 mg/dL (<1.0); Calcium 7.8 mg/dL (8.4-10.2); Carbon Dioxide 25 mmol/L (22-30); Chloride 109 mmol/L (98-107); Estimated CRCL calculation 53 ml/min; Estimated Glomerular Filt Rate > 60; Glucose 97 mg/dL (65-110); Potassium 4.3 mmol/L (3.4-5.0); Sodium 138 mmol/L (137-145)
[2020-09-25] MEDS: FUROSEMIDE INJ 40 MG/4 ML VIAL IV PUSH (08:05)
[2020-09-25] MEDS: PANTOPRAZOLE SODIUM IV 40 MG VIAL IV PUSH (08:08)
[2020-09-25] MEDS: ENOXAPARIN 40 MG/0.4 ML SYRINGE SUB-Q ×2 (08:11→20:29)
[2020-09-25] MEDS: DEXAMETHASONE 2 MG TABLET 6 MG PO (08:16)
--- NOTE | 2020-09-25 09:02 | WPDCNINT ---
Assessment and Plan Assessment and plan (1) Acute respiratory failure with hypoxia: Code(s): J96.01 - Acute respiratory failure with hypoxia Status: Acute Assessment and Plan: Patient with acute respiratory failure with increasing oxygen requirement, likely secondary to COVID pneumonia -patient on Airvo at 92% FiO2 and 60 L flow rate along with non-rebreather -chest x-ray shows diffuse bilateral airspace disease with no significant changes to prior chest x-ray -will obtain ABG -co dilators, will add Pulmicort (2) Pneumonia due to COVID-19 virus: Code(s): U07.1 - COVID-19; J12.82 - Pneumonia due to coronavirus disease 2018 Status: Acute Assessment and Plan: Patient positive for COVID-19 on 09/18/2020. Patient has NOT received a COVID vaccine -he has completed 5 days of remdesivir, will continue for an additional 5 days -continue dexamethasone for a total of 10 days -patient received tocilizumab on 09/24/2020 -continue droplet, airborne and contact isolation/precautions -inflammatory markers are elevated, will continue to trend (3) KATERYNA (acute kidney injury): Code(s): N17.9 - Acute kidney failure, unspecified Status: Acute Assessment and Plan: Patient admitted with acute kidney injury, has resolved since then, creatinine 1.10 this morning, will continue to monitor (4) DVT prophylaxis: Code(s): Z29.9 - Encounter for prophylactic measures, unspecified Status: Acute Assessment and Plan: DVT prophylaxis: Enoxaparin 40 mg Q!2H Stress ulcer prophylaxis: Protonix Additional Plan Discussed with DAI Biggs, , discussed with him and updated with patient's condition and plan of care. I discussed with him at length regarding intubation, he stated that the patient may not want intubation but if that is going to help and he would rather do that and take a chance. Patient does not improve after he is intubated on mechanical ventilation we can always discuss later according the POA. Code status: Full code Critical care time spent: 45 minutes Hoop Coiling Machine Operator Consult Note Consult date: 09/25/20 Time Seen: 07:05 Reason for consult: COVID pneumonia, acute hypoxic respiratory failure with increasing oxygen requirements HPI: Negrito Valdez is a 79 year old male with no known past medical history presented the ED on 09/18/2020 complains of vague epigastric discomfort/pain for 1 week prior to admission. He also had some pain in his right lower quadrant for about a week but that had subsided. He also complained of nausea but no vomiting, he had dry heaving and poor appetite. Denied any diarrhea, chest pain, shortness breath, fevers, chills. He has not been vaccinated for COVID-19. He had a CT scan of the abdomen and pelvis in the ER which did not show any significant abdominal pathology other than cholelithiasis and small fat containing left inguinal hernia. On to have some ground-glass opacity in the right middle lung and lower lobe. SARS-CoV-2 PCR was was sent from the ER which came back positive. Patient was initially on oxygen, 2 L nasal cannula and over the course of his stay in the hospital his oxygen requirements continue to trend up with worsening diffuse infiltrates on the chest x-ray. Patient had been started on remdesivir and dexamethasone. Patient received a dose of tocilizumab on 09/24/2020. Patient has completed 5 days of remdesivir, remains on dexamethasone. Patient isn't intermediate Unit patient in the ICU, with increasing oxygen requirements on Airvo, FiO2 92%, 60 L flow rate. I was seeing the patient with the hospitalist this morning, patient dropping his O2 sats in the low 80s, sat 100% non-rebreather with O2 sats in the mid 90s, keeps taking off his non-rebreather mask in desaturates. I also gave him a dose of Lasix this morning. Discussed with POA Mr. Kartik Dwyer, who stated that patient may not be understanding of the mechanical ventilator an
[2020-09-25] MEDS: BUDESONIDE RESPULE NEB 0.5 MG/2 ML AMP INHALATION ×2 (09:43→21:25)
[2020-09-25 09:54] LABS: Alveolar/Arterial O2 Gradient 612.3 mmHg; Base Excess ABG 0.5 mEq/l (+/-2.0); Fractional Inspired Oxygen 100 %; HCO3 ABG 22.4 mEq/l (22.0-26.0); Oxygen Content ABG 18.4 %vol (16.0-22.0); PCO2 ABG 28.6 mmHg (35.0-45.0); PO2 ABG 72.1 mmHg (80.0-100.0); PO2 FiO2 Ratio Arterial Blood 0.72 %; Total Hemoglobin 13.9 g/dL (12.0-18.0)
[2020-09-25 09:56] LABS: Site Drawn LEFT BRACHIAL; pH ABG 7.511 (7.350-7.450)
[2020-09-25 09:57] LABS: Device HIGH FLOW THERAPY
[2020-09-25 10:22] LABS: INR 1.2; Prothrombin Time 14.9 Seconds (11.1-14.7)
[2020-09-25] MEDS: REMDESIVIR 100 MG/NS 250 ML 100 MG/250 ML BAG 250 MG IVPB (12:01)
--- NOTE | 2020-09-25 17:45 | PM.PNPUL ---
Progress Note: A&P Assessment and Plan (1) Pneumonia due to COVID-19 virus: Code(s): U07.1 - COVID-19; J12.82 - Pneumonia due to coronavirus disease 2019 Status: Acute Assessment and Plan: Patient tested positive for COVID-19 on 09/18 and started on remdesivir 09/19 and dexamethasone 09/20. - Remdesivir for 10 days unless he recovers sooner and can tolerate room air with rest, ambulation and while sleeping. - Dexamethasone 6 mg PO or IV for 10 days - Continuous pulse oximetry - Prone positioning as tolerated. - Avoid any fluid overload. - Patient with right greater than left interstitial alveolar infiltrates with volume loss on the right with possible atelectasis or mucus plugging. Continue albuterol and ipratropium nebulizers q.4 hours and add Cornet valve to help clear secretions. He is coughing without getting his airway totally cleared. - ABG did not show elevated pCO2; 7.47/32/64. - repeat D-dimer is normal 0.29 09/23 Goal saturations are 90-94% and will utilize nasal cannula oxygen to achieve this. Patient may require high-flow oxygen, BiPAP, or mechanical ventilation. If he requires high-flow oxygen or BiPAP patient should receive tocilizumab. ABG on 7 L high-flow nasal cannula was pH of 7.47//64. There is no evidence of hypercarbia. 09/24 Clinically he worsened with change to AirVo 60 L/min and 90% FiO2, saturation at best 92%. I rolled him onto the left side to try to improve V/Q matching; this did not help. He is better on his back with head of bed > 45 degrees. 09/25 Abdominal pain, N&V, wt up 2 kg to 83.5 kg; had a Lasix in the morning and Arce was placed. He is still fragile and desaturates easily. No additional change in management. He is saturating adequately and does not need intubation. Continue to follow with you. (2) Acute respiratory failure with hypoxia: Code(s): J96.01 - Acute respiratory failure with hypoxia Status: Acute Assessment and Plan: Etiology of hypoxic respiratory failure is likely COVID pneumonia. Elevated BNP and echo is ordered to assess LV function and valve function. Would not give lasix as dye load from CTA later today. 09/20 16:00 4 L NC sats 94% 09/21 16:00 7 L NC sats 92% 09/22 16:00 7 L NC sats 90% 09/23 08:00 14 L NC sats 94% 09/24 14:00 AirVo 60 L/min and 90%, sat is at best 92%, drops wquickly with activity. 09/25 17:00 AirVo 35 L/min and 95%, sat is 92% when he is wearing the O2, drops to 70s when he takes it off. Subjective Date/time seen: 09/25/20 17:45 Interval history: Hospital Day # 8 79-year-old male now on AirVo with saturation 88-92%; he drops his saturation quickly with any exertion. He took his O2 off, and quickly dropped to the 70% range. He is having nausea and minimal vomiting. CXR shows same interstitial markings, R>L. He had negative medical history, was vaccinated for COVID; developed GI symptoms for approximately 1 week prior to ED visit and admission on 09/18/2020. CXR 09/18 demonstrating right interstitial alveolar infiltrates; CT of the abdomen which demonstrated that the lung images showed right greater than left multifocal interstitial alveolar ground-glass infiltrates. Patient was found to be COVID positive and started on Remdesivir 09/19/2020 and dexamethasone on 09/20/2020. Patient had worsening oxygenation from 2 L on 09/19 20-7 L on 09/21/2020. 09/23/20 Patient tells me that he is feeling much better since he was admitted to the hospital. Patient denies shortness of breath at rest. He denies chest pain. Patient has a cough that is dry and no hemoptysis. Patient is currently on 7 L nasal cannula saturations 90%. 09/24 He is in ICU 11, no hearing aids in; he is not in pain. He is eating adequately, making appropriate amounts of urine. He is coughing with yellow sputum. He seems to not be ab
[2020-09-25] MEDS: ONDANSETRON INJ 4 MG/2 ML VIAL IV PUSH (18:00)
[2020-09-26] VITALS (30 sets, daily range): BP systolic 90–135; BP diastolic 65–103; PULSE 60–94; RESP 10–32; TEMP 36.5–37.4; O2SAT 77–99; BMI 25.6
[2020-09-26] MEDS: IPRATROPIUM BR 0.02% INH SOLN 0.5 MG/2.5 ML VIAL INHALATION ×5 (00:54→21:08)
[2020-09-26] MEDS: ALBUTEROL SULFATE NEB 2.5 MG/0.5 ML INH INHALATION ×6 (00:54→23:55)
[2020-09-26 05:11] LABS: Hematocrit 37.6 % (42.0-52.0); Hemoglobin 12.3 g/dL (14.0-18.0); Mean Corpuscular HGB Conc 32.7 g/dl (32-36); Mean Corpuscular Hemoglobin 31.1 pg (26-34); Mean Corpuscular Volume 95.2 fl (80-100); Mean Platelet Volume 9.9 fl (7.4-10.4); Platelet Count Result 161 k/mm3 (150-375); Red Blood Count 3.95 M/mm3 (4.6-6.20); Red Cell Distribution Width 12.2 % (11.5-14.5); White Blood Count 9.6 K/mm3 (4.5-10.0)
[2020-09-26 05:12] LABS: Alveolar/Arterial O2 Gradient 455.6 mmHg; Base Excess ABG 1.4 mEq/l (+/-2.0); Carboxyhemoglobin 0.3 % THb (0-2.0); Fractional Inspired Oxygen 79 %; HCO3 ABG 23.6 mEq/l (22.0-26.0); Methemoglobin ABG 0.3 %THb (0-1.5); Oxygen Content ABG 18.7 %vol (16.0-22.0); Oxygen Saturation ABG 96.3 % (95.0-100.0); Oxyhemoglobin 94.1 % THb (90.0-100.0); PCO2 ABG 30.8 mmHg (35.0-45.0); PO2 ABG 75.3 mmHg (80.0-100.0); PO2 FiO2 Ratio Arterial Blood 0.95 %; Reduced Hemoglobin 5.3 %THb (0-5.0); Total Hemoglobin 14.1 g/dL (12.0-18.0)
[2020-09-26 05:16] LABS: pH ABG 7.503 (7.350-7.450)
[2020-09-26 05:17] LABS: Device HIGH FLOW NASAL CANN; Modified Allen's Test Pass; Site Drawn RIGHT RADIAL
[2020-09-26 05:21] LABS: INR 1.1; Prothrombin Time 14.4 Seconds (11.1-14.7)
[2020-09-26 05:27] LABS: Alanine Aminotransferase 29 U/L (4-50); Albumin Level 2.6 g/dL (3.5-5.1); Alkaline Phosphatase 66 U/L (38-126); Anion Gap 3 mmol/L (8-16); Aspartate Amino Transferase 37 U/L (17-59); Bilirubin,Total 0.5 mg/dL (0.2-1.3); Blood Urea Nitrogen 35 mg/dL (9-20); Calcium 7.7 mg/dL (8.4-10.2); Carbon Dioxide 30 mmol/L (22-30); Chloride 101 mmol/L (98-107); Estimated CRCL calculation 49 ml/min; Estimated Glomerular Filt Rate 58; Glucose 103 mg/dL (65-110); Magnesium 2.1 mg/dL (1.6-2.3); Phosphorus 4.7 mg/dL (2.5-4.5); Potassium 4.2 mmol/L (3.4-5.0); Sodium 134 mmol/L (137-145)
--- NOTE | 2020-09-26 05:45 | PC.NURSE ---
Critical ABG ph 7.50 received at 0516 on 09/26/[address] Husain 0545 09/26/2020.
[2020-09-26] MEDS: DEXAMETHASONE 2 MG TABLET 6 MG PO (08:46)
[2020-09-26] MEDS: FUROSEMIDE INJ 40 MG/4 ML VIAL IV PUSH (08:46)
[2020-09-26] MEDS: ENOXAPARIN 40 MG/0.4 ML SYRINGE SUB-Q ×2 (08:46→20:52)
[2020-09-26] MEDS: PANTOPRAZOLE SODIUM IV 40 MG VIAL IV PUSH (08:47)
--- NOTE | 2020-09-26 09:43 | PM.PNPUL ---
Progress Note: A&P Assessment and Plan (1) Pneumonia due to COVID-19 virus: Code(s): U07.1 - COVID-19; J12.82 - Pneumonia due to coronavirus disease 2019 Status: Acute Assessment and Plan: Patient tested positive for COVID-19 on 09/18 and started on remdesivir 09/19 and dexamethasone 09/20. - Remdesivir for 10 days unless he recovers sooner and can tolerate room air with rest, ambulation and while sleeping. - Dexamethasone 6 mg PO or IV for 10 days - Continuous pulse oximetry - Prone positioning as tolerated. - Avoid any fluid overload. - Patient with right greater than left interstitial alveolar infiltrates with volume loss on the right with possible atelectasis or mucus plugging. Continue albuterol and ipratropium nebulizers q.4 hours and add Cornet valve to help clear secretions. He is coughing without getting his airway totally cleared. - ABG did not show elevated pCO2; 7.47/32/64. - repeat D-dimer is normal 0.29 09/23 Goal saturations are 90-94% and will utilize nasal cannula oxygen to achieve this. Patient may require high-flow oxygen, BiPAP, or mechanical ventilation. If he requires high-flow oxygen or BiPAP patient should receive tocilizumab. ABG on 7 L high-flow nasal cannula was pH of 7.47//64. There is no evidence of hypercarbia. 09/24 Clinically he worsened with change to AirVo 60 L/min and 90% FiO2, saturation at best 92%. I rolled him onto the left side to try to improve V/Q matching; this did not help. He is better on his back with head of bed > 45 degrees. 09/25 Abdominal pain, N&V, wt up 2 kg to 83.5 kg; had a Lasix in the morning and Arce was placed. He is still fragile and desaturates easily. No additional change in management. He is saturating adequately and does not need intubation. Continue to follow with you. (2) Acute respiratory failure with hypoxia: Code(s): J96.01 - Acute respiratory failure with hypoxia Status: Acute Assessment and Plan: Etiology of hypoxic respiratory failure is likely COVID pneumonia. Elevated BNP and echo is ordered to assess LV function and valve function. Would not give lasix as dye load from CTA later today. 09/20 16:00 4 L NC sats 94% 09/21 16:00 7 L NC sats 92% 09/22 16:00 7 L NC sats 90% 09/23 08:00 14 L NC sats 94% 09/24 14:00 AirVo 60 L/min and 90%, sat is at best 92%, drops wquickly with activity. 09/25 17:00 AirVo 35 L/min and 95%, sat is 92% when he is wearing the O2, drops to 70s when he takes it off. Subjective Date/time seen: 09/26/20 09:43 Hospital Day # 9 79-year-old male now on AirVo with saturation 88-92%; less short of breath today compared to yesterday. Still has nausea and minimal vomiting. He had negative medical history, was vaccinated for COVID; developed GI symptoms for approximately 1 week prior to ED visit and admission on 09/18/2020. CXR 09/18 demonstrating right interstitial alveolar infiltrates; CT of the abdomen which demonstrated that the lung images showed right greater than left multifocal interstitial alveolar ground-glass infiltrates. Patient was found to be COVID positive and started on Remdesivir 09/19/2020 and dexamethasone on 09/20/2020. Patient had worsening oxygenation from 2 L on 09/19 20-7 L on 09/21/2020. 09/23/20 Patient tells me that he is feeling much better since he was admitted to the hospital. Patient denies shortness of breath at rest. He denies chest pain. Patient has a cough that is dry and no hemoptysis. Patient is currently on 7 L nasal cannula saturations 90%. 09/24 He is in ICU 11, no hearing aids in; he is not in pain. He is eating adequately, making appropriate amounts of urine. He is coughing with yellow sputum. He seems to not be able to get all of it expectorated. Will try Cornet valve to assist with clearing airway. No hemoptysis. Patient is currently on 1
[2020-09-26] MEDS: BUDESONIDE RESPULE NEB 0.5 MG/2 ML AMP INHALATION ×2 (09:51→21:08)
[2020-09-26] MEDS: REMDESIVIR 100 MG/NS 250 ML 100 MG/250 ML BAG 250 MG IVPB (10:46)
--- NOTE | 2020-09-26 13:38 | WPDINTPN ---
Progress Note: A&P Assessment and Plan (1) Acute respiratory failure with hypoxia: Code(s): J96.01 - Acute respiratory failure with hypoxia Status: Acute Assessment and Plan: Patient with acute respiratory failure with increasing oxygen requirement, likely secondary to COVID pneumonia -patient on Airvo at 80 % FiO2 and 60 L flow rate, -chest x-ray shows diffuse bilateral airspace disease with no significant changes to prior chest x-ray -ABGs reviewed, much improved -continue bronchodilators along with Pulmicort -will diurese today (2) Pneumonia due to COVID-19 virus: Code(s): U07.1 - COVID-19; J12.82 - Pneumonia due to coronavirus disease 2018 Status: Acute Assessment and Plan: Patient positive for COVID-19 on 09/18/2020. Patient has NOT received a COVID vaccine -he has completed 5 days of remdesivir, will continue for an additional 5 days -continue dexamethasone for a total of 10 days -patient received tocilizumab on 09/24/2020 -continue droplet, airborne and contact isolation/precautions -inflammatory markers are elevated, will continue to trend (3) KATERYNA (acute kidney injury): Code(s): N17.9 - Acute kidney failure, unspecified Status: Acute Assessment and Plan: Patient admitted with acute kidney injury, has resolved since then, creatinine 1.20 this morning, will continue to monitor (4) DVT prophylaxis: Code(s): Z29.9 - Encounter for prophylactic measures, unspecified Status: Acute Assessment and Plan: DVT prophylaxis: Enoxaparin 40 mg Q!2H Stress ulcer prophylaxis: Protonix Additional Plan Discussed with DAI Biggs, , discussed with him and updated with patient's condition and plan of care. I discussed with him at length regarding intubation, he stated that the patient may not want intubation but if that is going to help and he would rather do that and take a chance. Patient does not improve after he is intubated on mechanical ventilation we can always discuss later according the POA. Code status: Full code Critical care time spent: 34 minutes Discussed with pulmonology, will agrees to continue Airvo high-flow therapy at this time. Subjective Date/time seen: 09/26/20 13:38 Interval history: Reason for consult: COVID pneumonia, acute hypoxic respiratory failure with increasing oxygen requirements 09/26/2020: Remains on Airvo, 80% FiO2 and 60 L flow rate, patient looks more comfortable this morning, breathing 16-24 times a minute. Oxygen saturations are much improved. Patient does not require 100% non-rebreather at this time. Urine output has been adequate, patient is hemodynamically stable, afebrile. When asked how is his breathing, he replies it is okay. He denies any chest pain, abdominal pain, nausea or vomiting at this time. Review of Systems Review of Systems: All systems reviewed & are unremarkable except as noted in HPI and below Exam Narrative: General awake and alert, no distress, very hard of hearing HEENT pupils equal and reactive, sclera is clear, moist oral mucosa Neck supple, no lymphadenopathy palpated CVS S1-S2 no murmur Respiratory coarse breath sounds bilaterally, diminished at bases GI soft, nontender, nondistended, hypoactive bowel sounds Chest wall no tenderness or deformity SPORTS PHYSICIAN patient is alert, awake, very hard of hearing and unable to answer questions. Moves all extremities Psychiatric cooperative appropriate mood and affect Extremities no edema, palpable pulses Objective Data Vital Signs Vital Signs: Vital Signs - 24 hr 09/25/20 14:00 09/25/20 15:36 09/25/20 16:00 Temperature 98.0 F Pulse Rate 84 90 85 Respiratory Rate 27 H 19 Blood Pressure 112/65 Pulse Oximetry 96 93 09/25/20 16:30 09/25/20 16:41 09/25/20 18:00 Temperature Pulse Rate 80 83 90 Respiratory Rate 20 15 Blood Pressure Pulse Oximetry 09/25/20 20:00 09/25/20 21:26 09/25/20 21:40
[2020-09-26] MEDS: ACETAMINOPHEN 325 MG TABLET 650 MG PO (22:19)
[2020-09-26] MEDS: ONDANSETRON INJ 4 MG/2 ML VIAL IV PUSH (22:26)
[2020-09-26 23:41] LABS: Basophils Percent Auto 0.1 % (0.2-1.2); Eosinophils Percent Auto 0.3 % (0-4.4); Hematocrit 40.9 % (42.0-52.0); Hemoglobin 13.5 g/dL (14.0-18.0); Immature Granulocyte Absolute 0.08 K/mm3 (0.00-0.031); Immature Granulocyte Percent A 0.8 % (0-0.5); Lymphocytes Absolute Auto 2.97 K/mm3 (0.9-3.2); Mean Corpuscular Hemoglobin 30.8 pg (26-34); Mean Corpuscular Volume 93.2 fl (80-100); Monocytes Absolute Auto 0.5 K/mm3 (0.1-0.6); Monocytes Percent Auto 5.1 % (2.6-8.5); Neutrophils Percent Auto 65.7 % (45.5-73.1); Platelet Count Result 176 k/mm3 (150-375); Red Blood Count 4.39 M/mm3 (4.6-6.20); Red Cell Distribution Width 12.2 % (11.5-14.5); White Blood Count 10.6 K/mm3 (4.5-10.0)
[2020-09-26 23:45] LABS: INR 1.2; Prothrombin Time 15.1 Seconds (11.1-14.7)
[2020-09-26 23:46] LABS: Partial Thromboplastin Time 31.5 SECONDS (22.3-36.8)
[2020-09-27] VITALS (21 sets, daily range): BP systolic 91–153; BP diastolic 58–92; PULSE 59–89; RESP 14–27; TEMP 36.4–37.4; O2SAT 89–99
[2020-09-27] MEDS: HEPARIN SODIUM 5,000 UNITS/ML VIAL 7000 UNITS IV PUSH ×2 (00:01→08:29)
[2020-09-27] MEDS: IPRATROPIUM BR 0.02% INH SOLN 0.5 MG/2.5 ML VIAL INHALATION ×6 (04:09→20:17)
[2020-09-27] MEDS: ALBUTEROL SULFATE NEB 2.5 MG/0.5 ML INH INHALATION ×5 (04:09→20:17)
[2020-09-27 07:26] LABS: Basophils Percent Auto 0.1 % (0.2-1.2); Eosinophils Absolute Auto 0.1 K/mm3 (0-0.3); Hematocrit 40.5 % (42.0-52.0); Hemoglobin 12.9 g/dL (14.0-18.0); Immature Granulocyte Absolute 0.07 K/mm3 (0.00-0.031); Immature Granulocyte Percent A 0.7 % (0-0.5); Lymphocytes Absolute Auto 2.54 K/mm3 (0.9-3.2); Lymphocytes Percent Auto 24.5 % (18.3-44.2); Mean Corpuscular HGB Conc 31.9 g/dl (32-36); Mean Corpuscular Hemoglobin 30.6 pg (26-34); Mean Corpuscular Volume 96.2 fl (80-100); Mean Platelet Volume 9.9 fl (7.4-10.4); Monocytes Absolute Auto 0.5 K/mm3 (0.1-0.6); Monocytes Percent Auto 4.9 % (2.6-8.5); Neutrophils Absolute Auto 7.1 K/mm3 (1.3-6.7); Neutrophils Percent Auto 68.8 % (45.5-73.1); Platelet Count Result 164 k/mm3 (150-375); Red Blood Count 4.21 M/mm3 (4.6-6.20); Red Cell Distribution Width 12.3 % (11.5-14.5); White Blood Count 10.4 K/mm3 (4.5-10.0)
[2020-09-27 07:41] LABS: INR 1.1; Prothrombin Time 14.4 Seconds (11.1-14.7)
[2020-09-27 07:59] LABS: D Dimer 14.46 ug/mL (<0.48)
[2020-09-27] MEDS: BUDESONIDE RESPULE NEB 0.5 MG/2 ML AMP INHALATION ×2 (08:07→20:17)
[2020-09-27 08:58] LABS: Alanine Aminotransferase 27 U/L (4-50); Albumin Level 2.6 g/dL (3.5-5.1); Alkaline Phosphatase 67 U/L (38-126); Anion Gap 2 mmol/L (8-16); Aspartate Amino Transferase 28 U/L (17-59); Bilirubin,Total 0.9 mg/dL (0.2-1.3); Blood Urea Nitrogen 42 mg/dL (9-20); Calcium 8.1 mg/dL (8.4-10.2); Carbon Dioxide 32 mmol/L (22-30); Chloride 104 mmol/L (98-107); Estimated CRCL calculation 49 ml/min; Estimated Glomerular Filt Rate 58; Glucose 87 mg/dL (65-110); Lactate Dehydrogenase 1205 U/L (313-618); Magnesium 2.1 mg/dL (1.6-2.3); Phosphorus 4.1 mg/dL (2.5-4.5); Potassium 4.4 mmol/L (3.4-5.0); Sodium 138 mmol/L (137-145)
[2020-09-27] MEDS: DEXAMETHASONE 2 MG TABLET 6 MG PO (09:04)
[2020-09-27] MEDS: PANTOPRAZOLE SODIUM IV 40 MG VIAL IV PUSH (09:05)
[2020-09-27] MEDS: ENOXAPARIN 40 MG/0.4 ML SYRINGE SUB-Q (09:05)
[2020-09-27] MEDS: LIDOCAINE HCL 1% PF INJ 5 ML VIAL INFILTRATE (11:30)
--- NOTE | 2020-09-27 12:38 | PCDIET ---
ICU Rounding Note: Patient eating little on full liquid diet. Ensure Compact being provided TID. Last recorded weight is 82.2kg which is down from last review. -I/O. Bowel Motility: Last documented BM on 09/24/20 x 2. Labs Reviewed: WBC (10.4), RBC (4.21), Hgb (12.9), Hct (40.5), BUN (42), Alb (2.6), Iker Ca (9.22) Meds Noted: Albuterol, Pulmicort, Dexamethasone, Atrovent, Protonix, Lasix, Remdesivir Additional Notes: No documented skin breakdown. Following daily in ICU rounds. Assessing/reassessing every 5 days.
[2020-09-27] MEDS: REMDESIVIR 100 MG/NS 250 ML 100 MG/250 ML BAG 250 MG IVPB (12:55)
[2020-09-27] MEDS: FUROSEMIDE INJ 40 MG/4 ML VIAL IV PUSH (12:55)
[2020-09-27] MEDS: SALINE LOCK FLUSH 10 ML IV PUSH ×2 (12:56→20:45)
--- NOTE | 2020-09-27 14:12 | WPDINTPN ---
Progress Note: A&P Assessment and Plan (1) Acute respiratory failure with hypoxia: Code(s): J96.01 - Acute respiratory failure with hypoxia Status: Acute Assessment and Plan: Patient with acute respiratory failure with increasing oxygen requirement, likely secondary to COVID pneumonia -patient on Airvo at 80 % FiO2 and 60 L flow rate, -chest x-ray shows diffuse bilateral airspace disease with no significant changes to prior chest x-ray -ABGs reviewed, much improved -continue bronchodilators along with Pulmicort -will diurese again today (2) Pneumonia due to COVID-19 virus: Code(s): U07.1 - COVID-19; J12.82 - Pneumonia due to coronavirus disease 2018 Status: Acute Assessment and Plan: Patient positive for COVID-19 on 09/18/2020. Patient has NOT received a COVID vaccine -he has completed 5 days of remdesivir, will continue for an additional 5 days -continue dexamethasone for a total of 10 days -patient received tocilizumab on 09/24/2020 -continue droplet, airborne and contact isolation/precautions -inflammatory markers are elevated, will continue to trend (3) KATERYNA (acute kidney injury): Code(s): N17.9 - Acute kidney failure, unspecified Status: Acute Assessment and Plan: Patient admitted with acute kidney injury, has resolved since then, creatinine 1.20 this morning, will continue to monitor (4) DVT prophylaxis: Code(s): Z29.9 - Encounter for prophylactic measures, unspecified Status: Acute Assessment and Plan: DVT prophylaxis: Enoxaparin 40 mg Q!2H Stress ulcer prophylaxis: Protonix (5) Peripheral arterial disease: Code(s): I73.9 - Peripheral vascular disease, unspecified Status: Acute Assessment and Plan: Ischemia of the left hand. -according the bedside RN Left hand was cold and the left radial artery was not palpable between the night of 09/26/2020 and 09/27/2020 -patient was started on infusions -a transferred to [facility] has been initiated, patient has been accepted and awaiting bed placement Additional Plan Left a message for DAI Biggs, , Code status: Full code Critical care time spent: 35 minutes This dictation may have been done utilizing a voice recognition system. Attempts have been made to correct errors. However, there may be uncorrected grammatical, spelling, and recognition errors present. Due to a high probability of clinically significant, life threatening deterioration, the patient required my highest level of preparedness to intervene emergently and I personally spent this critical care time directly and personally managing the patient. This critical care time included obtaining a history; examining the patient; pulse oximetry; ordering and review of studies; arranging urgent treatment with development of a management plan; evaluation of patient's response to treatment; frequent reassessment; and discussions with other providers. It was exclusive of separately billable procedures and treating other patients and teaching time. Please see Assessment and Plan section and the rest of the note for further information on patient assessment and treatment Subjective Date/time seen: 09/27/20 14:12 Interval history: Reason for consult: COVID pneumonia, acute hypoxic respiratory failure with increasing oxygen requirements 09/27/2020: Patient remains on Airvo, 90% FiO2 and 60 L. Overnight the bedside RN could not feel a pulse on the left radial artery, left hand was cold. Patient was emergently started on heparin infusion, a transfer has been initiated to [facility] in [place] weighs accepted and awaits bed placement. Patient is is awake, follows commands, remains on high oxygen requirements. Urine output has been adequate, afebrile, hemodynamically stable. Patient denies any chest pain, abdominal pain, nausea vomiting Review of Systems Review of Systems: All sy
[2020-09-27 16:19] LABS: Partial Thromboplastin Time > 200.0 SECONDS (22.3-36.8)
--- NOTE | 2020-09-27 16:39 | PM.IMPN ---
Progress Note: A&P Assessment and Plan (1) Pneumonia due to COVID-19 virus: Code(s): U07.1 - COVID-19; J12.82 - Pneumonia due to coronavirus disease 2019 Status: Acute Assessment and Plan: - diagnosed 09/18/2020, unclear symptom onset date, continue isolation precautions - with decompensation is now on Airvo at 80% FiO2 and 60 L flow -he is on bronchodilators and Pulmicort as well as being diuresed by the theater teacher - CTA chest was negative for pulmonary embolism - Pharmacy Operations Manager consulted for possible bronchoscopy of right lung whiteout, no bronch at this time -he completed 5 days of remdesivir adding 5 more days, continuing 10 days of dexamethasone -status post tocilizumab 09/24/2020 -PICC line placed 09/27/2020 (2) Acute respiratory failure with hypoxia: Code(s): J96.01 - Acute respiratory failure with hypoxia Status: Acute Assessment and Plan: See above (3) KATERYNA (acute kidney injury): Code(s): N17.9 - Acute kidney failure, unspecified Status: Acute Assessment and Plan: Resolved (4) Nonpalpable pulse: Code(s): Z78.9 - Other specified health status Status: Acute Assessment and Plan: -on 09/26 evening Nonpalpable pulse of left hand, started on heparin drip, pulses have returned -transfer to [facility] for vascular surgery (5) DVT prophylaxis: Code(s): Z29.9 - Encounter for prophylactic measures, unspecified Status: Acute Assessment and Plan: On heparin drip Additional Plan Diet: Regular DVT prophylaxis: On heparin drip GI prophylaxis: Protonix Code status: Full code Disposition: Continue theater teacher management Time Spent With Patient Time with patient: 25 - 35 minutes Subjective Date/time seen: 09/27/20 16:39. Patient examined he is on high-flow oxygen Airvo 80% and non-rebreather. PICC line to be placed today. He is on bronchodilators Pulmicort. He is being diuresed with theater teacher. Overnight there was concern for left hand ischemia with no palpable pulses urgent transfer to [facility] in [place] has been initiated. Heparin drip was started and has pulses appear to have returned. He has been continued on heparin drip. Patient endorses dyspnea, denies fever, chills, nausea, vomiting, diarrhea. Review of Systems Review of Systems: All systems reviewed & are unremarkable except as noted in HPI and below Exam Narrative: - GENERAL: Frail older man in respiratory distress on Airvo - EYES: EOMI. Anicteric. - HENT: Moist mucous membranes. - LUNGS: diminished lung sounds throughout - CARDIOVASCULAR: Regular rate and rhythm. No murmur. No JVD. - ABDOMEN: Soft, non-tender and non-distended. No palpable masses. - EXTREMITIES: No edema. Peripheral pulses 2+. Non-tender. - NEUROLOGIC: No focal neurological deficits. CN II-XII grossly intact. - PSYCHIATRIC: Awake, Alert and oriented. Appropriate mood and affect. - SKIN: No rashes or lesions. Warm. - LYMPH: No cervical lymphadenopathy. Objective Data Vital Signs Vital Signs: Vital Signs - 24 hr 09/26/20 18:00 09/26/20 20:00 09/26/20 21:08 Temperature 37.4 C Pulse Rate 81 64 79 Respiratory Rate 18 23 H 16 Blood Pressure 125/103 H 105/76 Pulse Oximetry 90 98 09/26/20 21:12 09/26/20 21:17 09/26/20 22:00 Temperature 37.4 C Pulse Rate 77 79 78 Respiratory Rate 14 14 22 H Blood Pressure 90/65 L Pulse Oximetry 89 L 99 09/26/20 22:54 09/27/20 00:00 09/27/20 02:00 Temperature 37.3 C 37.3 C Pulse Rate 69 66 Respiratory Rate 19 17 Blood Pressure 114/80 125/70 110/58 L Pulse Oximetry 98 98 09/27/20 04:00 09/27/20 04:13 09/27/20 06:00 Temperature 36.9 C 37.0 C Pulse Rate 63 72 65 Respiratory Rate 14 20 25 H Blood Pressure 109/64 153/84 H Pulse Oximetry 97 97 92 09/27/20 08:00 09/27/20 08:07 09/27/20 08:21 Temperature 36.4 C L Pulse Rate 67 67 65 Respiratory Rate 23 H 20 18 Blood Pressure 145/92 H
[2020-09-27] MEDS: HEPARIN SOD/D5W 100 UNITS/ML 25,000 UNITS/250 ML BAG 15 UNITS IV CONT ×2 (20:45)
[2020-09-27 21:23] LABS: Partial Thromboplastin Time 196.1 SECONDS (22.3-36.8)
[2020-09-28] VITALS (21 sets, daily range): BP systolic 92–124; BP diastolic 62–79; PULSE 71–105; RESP 18–27; TEMP 36.1–37.6; O2SAT 87–99
[2020-09-28] MEDS: IPRATROPIUM BR 0.02% INH SOLN 0.5 MG/2.5 ML VIAL INHALATION ×4 (01:27→21:57)
[2020-09-28] MEDS: ALBUTEROL SULFATE NEB 2.5 MG/0.5 ML INH INHALATION ×4 (01:27→21:57)
[2020-09-28] MEDS: SALINE LOCK FLUSH 10 ML IV PUSH ×3 (05:47→20:45)
[2020-09-28 06:03] LABS: Hematocrit 42.6 % (42.0-52.0); Hemoglobin 13.5 g/dL (14.0-18.0); Mean Corpuscular HGB Conc 31.7 g/dl (32-36); Mean Corpuscular Hemoglobin 30.6 pg (26-34); Mean Corpuscular Volume 96.6 fl (80-100); Mean Platelet Volume 9.9 fl (7.4-10.4); Platelet Count Result 182 k/mm3 (150-375); Red Blood Count 4.41 M/mm3 (4.6-6.20); Red Cell Distribution Width 12.4 % (11.5-14.5)
[2020-09-28 06:11] LABS: INR 1.2; Prothrombin Time 14.6 Seconds (11.1-14.7)
[2020-09-28 06:12] LABS: Partial Thromboplastin Time 83.5 SECONDS (22.3-36.8)
[2020-09-28 06:20] LABS: Alanine Aminotransferase 29 U/L (4-50); Albumin Level 2.8 g/dL (3.5-5.1); Alkaline Phosphatase 70 U/L (38-126); Anion Gap 5 mmol/L (8-16); Aspartate Amino Transferase 29 U/L (17-59); Blood Urea Nitrogen 46 mg/dL (9-20); Calcium 8.2 mg/dL (8.4-10.2); Carbon Dioxide 31 mmol/L (22-30); Chloride 101 mmol/L (98-107); Estimated CRCL calculation 44 ml/min; Estimated Glomerular Filt Rate 58; Glucose 84 mg/dL (65-110); Magnesium 2.1 mg/dL (1.6-2.3); Phosphorus 4.2 mg/dL (2.5-4.5); Potassium 3.9 mmol/L (3.4-5.0); Sodium 137 mmol/L (137-145)
[2020-09-28] MEDS: DEXAMETHASONE 2 MG TABLET 6 MG PO (07:53)
[2020-09-28] MEDS: PANTOPRAZOLE SODIUM IV 40 MG VIAL IV PUSH (07:57)
[2020-09-28] MEDS: BUDESONIDE RESPULE NEB 0.5 MG/2 ML AMP INHALATION ×2 (09:07→21:57)
[2020-09-28] MEDS: REMDESIVIR 100 MG/NS 250 ML 100 MG/250 ML BAG 250 MG IVPB (11:26)
[2020-09-28 11:54] LABS: Partial Thromboplastin Time 140.7 SECONDS (22.3-36.8)
--- NOTE | 2020-09-28 11:58 | WPDINTPN ---
Progress Note: A&P Assessment and Plan (1) Acute respiratory failure with hypoxia: Code(s): J96.01 - Acute respiratory failure with hypoxia Status: Acute Assessment and Plan: Patient with acute respiratory failure with increasing oxygen requirement, likely secondary to COVID pneumonia -patient on Airvo at 80 % FiO2 and 60 L flow rate, -chest x-ray shows diffuse bilateral airspace disease with no significant changes to prior chest x-ray -ABGs reviewed, much improved -continue bronchodilators along with Pulmicort (2) Pneumonia due to COVID-19 virus: Code(s): U07.1 - COVID-19; J12.82 - Pneumonia due to coronavirus disease 2018 Status: Acute Assessment and Plan: Patient positive for COVID-19 on 09/18/2020. Patient has NOT received a COVID vaccine -he has completed 5 days of remdesivir, will continue for an additional 5 days -continue dexamethasone for a total of 10 days -patient received tocilizumab on 09/24/2020 -continue droplet, airborne and contact isolation/precautions -inflammatory markers are elevated, will continue to trend (3) KATERYNA (acute kidney injury): Code(s): N17.9 - Acute kidney failure, unspecified Status: Acute Assessment and Plan: Patient admitted with acute kidney injury, has resolved since then, creatinine 1.20 this morning, will continue to monitor (4) DVT prophylaxis: Code(s): Z29.9 - Encounter for prophylactic measures, unspecified Status: Acute Assessment and Plan: DVT prophylaxis: Enoxaparin 40 mg Q!2H Stress ulcer prophylaxis: Protonix (5) Peripheral arterial disease: Code(s): I73.9 - Peripheral vascular disease, unspecified Status: Acute Assessment and Plan: Ischemia of the left hand. -according the bedside RN Left hand was cold and the left radial artery was not palpable between the night of 09/26/2020 and 09/27/2020 -patient was started on infusions - 09/27/2020: . Decreased pressures in left ulnar artery and left finger, consistent with arterial occlusive disease -a transferred to [facility] has been initiated, patient has been accepted and awaiting bed placement Additional Plan Left a message for DAI Biggs, , Code status: Full code Critical care time spent: 32 minutes This dictation may have been done utilizing a voice recognition system. Attempts have been made to correct errors. However, there may be uncorrected grammatical, spelling, and recognition errors present. Due to a high probability of clinically significant, life threatening deterioration, the patient required my highest level of preparedness to intervene emergently and I personally spent this critical care time directly and personally managing the patient. This critical care time included obtaining a history; examining the patient; pulse oximetry; ordering and review of studies; arranging urgent treatment with development of a management plan; evaluation of patient's response to treatment; frequent reassessment; and discussions with other providers. It was exclusive of separately billable procedures and treating other patients and teaching time. Please see Assessment and Plan section and the rest of the note for further information on patient assessment and treatment Subjective Date/time seen: 09/28/20 11:58 Interval history: Reason for consult: COVID pneumonia, acute hypoxic respiratory failure with increasing oxygen requirements 09/28/2020: Patient remains on Airvo, 90% FiO2 and 60 L. Pt remains on heparin infusion. B/l radial artery pulses palpable,Patient is is awake, follows commands, remains on high oxygen requirements. Urine output has been adequate, afebrile, hemodynamically stable. Patient denies any chest pain, abdominal pain, nausea vomiting. Pt refuses to wear the oxygen, he has stated to the RN and myself that he wants to go home. Review of Systems Review of Systems: All systems reviewed
--- NOTE | 2020-09-28 12:54 | PCDIET ---
ICU Rounding Note: Patient not eating, despite encouragement of RN. MD to discuss plan of care with patient/family. Last recorded weight is 70.3kg which is significantly down from last review. -I/O. Will monitor. Bowel Motility: Last documented BM on 09/25/20 x 2. Labs Reviewed: RBC (4.41), Hgb (13.5), BUN (46), Alb (2.8), Iker Ca (9.16) Meds Noted: Albuterol, Pulmicort, Dexamethasone, Atrovent, Protonix, Remdesivir Additional Notes: No documented skin breakdown. Following daily in ICU rounds. Assessing/reassessing every 5 days.
[2020-09-28 18:26] LABS: Partial Thromboplastin Time 74.9 SECONDS (22.3-36.8)
--- NOTE | 2020-09-28 20:03 | PM.IMPN ---
Progress Note: A&P Assessment and Plan (1) Nonpalpable pulse: Code(s): Z78.9 - Other specified health status Status: Acute (2) Peripheral arterial disease: Code(s): I73.9 - Peripheral vascular disease, unspecified Status: Acute (3) DVT prophylaxis: Code(s): Z29.9 - Encounter for prophylactic measures, unspecified Status: Acute (4) Pneumonia due to COVID-19 virus: Code(s): U07.1 - COVID-19; J12.82 - Pneumonia due to coronavirus disease 2019 Status: Acute (5) Acute respiratory failure with hypoxia: Code(s): J96.01 - Acute respiratory failure with hypoxia Status: Acute (6) COVID-19: Code(s): U07.1 - COVID-19 Status: Acute (7) KATERYNA (acute kidney injury): Code(s): N17.9 - Acute kidney failure, unspecified Status: Acute (8) Gastroenteritis: Code(s): K52.9 - Noninfective gastroenteritis and colitis, unspecified Status: Acute (9) KATERYNA (acute kidney injury): Code(s): N17.9 - Acute kidney failure, unspecified Status: Acute Additional Plan Patient positive for COVID-19 on 09/18/2020. Patient has NOT received a COVID vaccine he has completed 5 days of remdesivir, will continue for an additional 5 days continue dexamethasone for a total of 10 days patient received tocilizumab on 09/24/2020 Ischemia of the left hand:according the bedside RN Left hand was cold and the left radial artery was not palpable between the night of 09/26/2020 and 09/27/2020; patient was started on heparin gtt; On 09/27/2020, Decreased pressures in left ulnar artery and left finger, consistent with arterial occlusive disease patient's wishes are at this time of not wearing his oxygen, and wanting to go home. Kartik requested hospice to see him. Subjective Date/time seen: 09/28/20 20:03 79-year-old male with COVID pneumonia, currently on Airvo. Continues to be tachypneic. 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 Continued on heparin drip due to concerns regarding loss of pulses and ischemia related to upper extremity Review of Systems Review of Systems: Upon review of system was conducted was otherwise negative Exam Const: General: cooperative HENMT: Head: normal to inspection Eyes: General: appearance normal, both eyes and all related structures Neck: Neck: normal visual inspection Chest: Chest palpation & inspection: normal inspection of the chest Resp: Effort & Inspection: abnormal respiratory pattern, audible wheezes and respiratory distress Cardio: Jugular venous distension: no JVD Rate: tachycardic Rhythm: regular rhythm GI: Inspection: normal to inspection GI Palp: Yes Soft to palpation Auscultation: normal bowel sounds : General: Yes bimanual renal exam normal bilaterally Back/Spine/Pelvis: Back: no CVA tenderness Skin: General skin exam: normal color Neuro: General: oriented to person, oriented to place and oriented to time Objective Data Vital Signs Vital Signs: Vital Signs - 24 hr 09/27/20 20:19 09/27/20 20:20 09/27/20 20:37 Temperature Pulse Rate 74 78 Respiratory Rate 24 H 26 H Blood Pressure Pulse Oximetry 93 09/27/20 22:00 09/28/20 00:00 09/28/20 01:30 Temperature 98.9 F 98.8 F Pulse Rate 81 85 82 Respiratory Rate 23 H 23 H 27 H Blood Pressure 106/72 Pulse Oximetry 97 90 09/28/20 01:32 09/28/20 02:00 09/28/20 04:00 Temperature 98.7 F 98.5 F Pulse Rate 71 75 Respiratory Rate 20 18 Blood Pressure 112/74 112/79 Pulse Oximetry 93 92 91 09/28/20 06:00 09/28/20 08:00 09/28/20 09:07 Temperature 98.6 F 96.9 F L Pulse Rate 83 85 74 Respiratory Rate 22 H 25 H 22 H Blood Pressure 98/66 L 108/69 Pulse Oximetry 87 L 91 99 09/28/20 09:21 09/28/20 10:00 09/28/20 12:00 Temperature 99.2 F 99.1 F Pulse Rate 72 79 85 Respiratory Rate 21 H 18 20 Blood Pressure 118/67 124/79 Pulse Oximetry 99 95 90 09/28/20 13:07 09/28/20 13:16 09/28/20 14:00 Temp
[2020-09-28] MEDS: HEPARIN SOD/D5W 100 UNITS/ML 25,000 UNITS/250 ML BAG 9 UNITS IV CONT (22:34)
[2020-09-29] VITALS (26 sets, daily range): BP systolic 86–120; BP diastolic 60–75; PULSE 62–106; RESP 16–35; TEMP 36.9–37.4; O2SAT 78–99
[2020-09-29 00:16] LABS: Partial Thromboplastin Time 87.8 SECONDS (22.3-36.8)
[2020-09-29] MEDS: IPRATROPIUM BR 0.02% INH SOLN 0.5 MG/2.5 ML VIAL INHALATION ×5 (00:44→19:11)
[2020-09-29] MEDS: ALBUTEROL SULFATE NEB 2.5 MG/0.5 ML INH INHALATION ×5 (00:45→19:11)
[2020-09-29] MEDS: ACETAMINOPHEN 325 MG TABLET 650 MG PO (02:48)
[2020-09-29] MEDS: SALINE LOCK FLUSH 10 ML IV PUSH ×3 (05:09→19:32)
[2020-09-29 05:37] LABS: Hematocrit 41.8 % (42.0-52.0); Hemoglobin 13.3 g/dL (14.0-18.0); Mean Corpuscular HGB Conc 31.8 g/dl (32-36); Mean Corpuscular Hemoglobin 30.6 pg (26-34); Mean Corpuscular Volume 96.3 fl (80-100); Mean Platelet Volume 9.8 fl (7.4-10.4); Platelet Count Result 187 k/mm3 (150-375); Red Blood Count 4.34 M/mm3 (4.6-6.20); Red Cell Distribution Width 12.4 % (11.5-14.5); White Blood Count 9.7 K/mm3 (4.5-10.0)
[2020-09-29 05:48] LABS: INR 1.2; Prothrombin Time 14.7 Seconds (11.1-14.7)
[2020-09-29 05:49] LABS: Alanine Aminotransferase 28 U/L (4-50); Albumin Level 2.6 g/dL (3.5-5.1); Alkaline Phosphatase 69 U/L (38-126); Anion Gap 4 mmol/L (8-16); Aspartate Amino Transferase 26 U/L (17-59); Bilirubin,Total 0.8 mg/dL (0.2-1.3); Blood Urea Nitrogen 49 mg/dL (9-20); CRP < 0.5 mg/dL (<1.0); Calcium 8.3 mg/dL (8.4-10.2); Carbon Dioxide 29 mmol/L (22-30); Chloride 104 mmol/L (98-107); Estimated CRCL calculation 45 ml/min; Estimated Glomerular Filt Rate 53; Glucose 96 mg/dL (65-110); Lactate Dehydrogenase 943 U/L (313-618); Magnesium 2.2 mg/dL (1.6-2.3); Phosphorus 3.6 mg/dL (2.5-4.5); Sodium 137 mmol/L (137-145)
[2020-09-29 05:50] LABS: Partial Thromboplastin Time 119.3 SECONDS (22.3-36.8)
[2020-09-29 05:58] LABS: D Dimer 3.74 ug/mL (<0.48)
[2020-09-29] MEDS: BUDESONIDE RESPULE NEB 0.5 MG/2 ML AMP INHALATION ×2 (08:07→22:31)
[2020-09-29] MEDS: PANTOPRAZOLE SODIUM IV 40 MG VIAL IV PUSH (08:49)
[2020-09-29] MEDS: DEXAMETHASONE 2 MG TABLET 6 MG PO (08:49)
[2020-09-29] MEDS: REMDESIVIR 100 MG/NS 250 ML 100 MG/250 ML BAG 250 MG IVPB (12:27)
--- NOTE | 2020-09-29 13:19 | PCDIET ---
Nutrition Follow-Up Complete: Nutrition Diagnosis: Suboptimal oral intake related to COVID as evidenced by varying intakes since admission. Nutrition Goal: Patient to consume 50% of meals/supplements or greater. Goal not met. Patient eating minimally on full liquid diet. Hospice has been consulted. Will follow for plan of care and provide nutrition support recommendation if aggressive therapy is continued. Last recorded weight is 76.6 kg which is increased from last review. Question accuracy of previous weight, as is an outlier. Bowel Motility: Last documented BM on 09/25/20 x 2. Labs Reviewed: RBC (4.34), Hgb (13.3), Hct (41.8), BUN (49), Alb (2.6) Meds Noted: Albuterol, Atrovent, Pulmicort, Protonix Additional Notes: No documented skin breakdown. Will continue to monitor with same goal. Nutrition Monitoring and Evaluation: Follow up every 5 days.
[2020-09-29 13:23] LABS: Partial Thromboplastin Time 84.8 SECONDS (22.3-36.8)
--- NOTE | 2020-09-29 14:42 | WPDINTPN ---
Progress Note: A&P Assessment and Plan (1) Acute respiratory failure with hypoxia: Code(s): J96.01 - Acute respiratory failure with hypoxia Status: Acute Assessment and Plan: Patient with acute respiratory failure with increasing oxygen requirement, likely secondary to COVID pneumonia -patient on Airvo at 80 % FiO2 and 60 L flow rate, -chest x-ray shows diffuse bilateral airspace disease with no significant changes to prior chest x-ray -ABGs reviewed, much improved -continue bronchodilators along with Pulmicort (2) Pneumonia due to COVID-19 virus: Code(s): U07.1 - COVID-19; J12.82 - Pneumonia due to coronavirus disease 2018 Status: Acute Assessment and Plan: Patient positive for COVID-19 on 09/18/2020. Patient has NOT received a COVID vaccine -he has completed 5 days of remdesivir, will continue for an additional 5 days -continue dexamethasone for a total of 10 days -patient received tocilizumab on 09/24/2020 -continue droplet, airborne and contact isolation/precautions -inflammatory markers are elevated, will continue to trend (3) KATERYNA (acute kidney injury): Code(s): N17.9 - Acute kidney failure, unspecified Status: Acute Assessment and Plan: Patient admitted with acute kidney injury, has resolved since then, creatinine has been stable (4) DVT prophylaxis: Code(s): Z29.9 - Encounter for prophylactic measures, unspecified Status: Acute Assessment and Plan: DVT prophylaxis: heparin infusion Stress ulcer prophylaxis: Protonix (5) Peripheral arterial disease: Code(s): I73.9 - Peripheral vascular disease, unspecified Status: Acute Assessment and Plan: Ischemia of the left hand. -according the bedside RN Left hand was cold and the left radial artery was not palpable between the night of 09/26/2020 and 09/27/2020 -patient was started on infusions - 09/27/2020: . Decreased pressures in left ulnar artery and left finger, consistent with arterial occlusive disease -a transferred to [facility] has been initiated, patient has been accepted and awaiting bed placement Additional Plan Left a message for DAI Biggs, , Discussed with patient, he does not want to go home on hospice and . He was remain a full code. Code status: Full code Critical care time spent: 32 minutes This dictation may have been done utilizing a voice recognition system. Attempts have been made to correct errors. However, there may be uncorrected grammatical, spelling, and recognition errors present. Due to a high probability of clinically significant, life threatening deterioration, the patient required my highest level of preparedness to intervene emergently and I personally spent this critical care time directly and personally managing the patient. This critical care time included obtaining a history; examining the patient; pulse oximetry; ordering and review of studies; arranging urgent treatment with development of a management plan; evaluation of patient's response to treatment; frequent reassessment; and discussions with other providers. It was exclusive of separately billable procedures and treating other patients and teaching time. Please see Assessment and Plan section and the rest of the note for further information on patient assessment and treatment Subjective Date/time seen: 09/29/20 14:42 Interval history: Reason for consult: COVID pneumonia, acute hypoxic respiratory failure with increasing oxygen requirements 09/29/2020: Remains on Airvo 90% FiO2, 60 L flow rate. Oxygen saturation much improved this morning. Patient states he feels slightly better. Patient discussed with hospice, he does not want to go on hospice He misunderstood hospice was, as he does not want to . Patient denies any chest pain, shortness of breath, nausea, vomiting at this time. He does sometimes pole his oxygen out due to being frustrated of
[2020-09-29] MEDS: dexmedeTOMIDine 400 MCG/100 ML 400 MCG/100 ML BAG IV CONT (20:00)
[2020-09-29 20:13] LABS: Partial Thromboplastin Time 69.2 SECONDS (22.3-36.8)
[2020-09-29] MEDS: HEPARIN SODIUM 5,000 UNITS/ML VIAL 3500 UNITS IV PUSH (20:20)
[2020-09-30] VITALS (29 sets, daily range): BP systolic 80–112; BP diastolic 53–74; PULSE 62–93; RESP 15–27; TEMP 36.2–37.1; O2SAT 91–99
[2020-09-30] MEDS: ALBUTEROL SULFATE NEB 2.5 MG/0.5 ML INH INHALATION ×6 (00:18→22:00)
[2020-09-30] MEDS: IPRATROPIUM BR 0.02% INH SOLN 0.5 MG/2.5 ML VIAL INHALATION ×6 (00:18→22:01)
[2020-09-30] MEDS: HEPARIN SOD/D5W 100 UNITS/ML 25,000 UNITS/250 ML BAG 9 UNITS IV CONT (03:33)
[2020-09-30] MEDS: SALINE LOCK FLUSH 10 ML IV PUSH ×3 (04:33→19:54)
[2020-09-30 04:42] LABS: Hematocrit 40.9 % (42.0-52.0); Hemoglobin 13.2 g/dL (14.0-18.0); Mean Corpuscular HGB Conc 32.3 g/dl (32-36); Mean Corpuscular Hemoglobin 31.4 pg (26-34); Mean Corpuscular Volume 97.1 fl (80-100); Mean Platelet Volume 9.9 fl (7.4-10.4); Platelet Count Result 178 k/mm3 (150-375); Red Blood Count 4.21 M/mm3 (4.6-6.20); Red Cell Distribution Width 12.6 % (11.5-14.5); White Blood Count 10.8 K/mm3 (4.5-10.0)
[2020-09-30 04:59] LABS: Partial Thromboplastin Time 125.5 SECONDS (22.3-36.8)
[2020-09-30 05:02] LABS: Alanine Aminotransferase 26 U/L (4-50); Albumin Level 2.6 g/dL (3.5-5.1); Alkaline Phosphatase 66 U/L (38-126); Anion Gap 5 mmol/L (8-16); Aspartate Amino Transferase 27 U/L (17-59); Bilirubin,Total 0.7 mg/dL (0.2-1.3); Blood Urea Nitrogen 49 mg/dL (9-20); Calcium 8.5 mg/dL (8.4-10.2); Carbon Dioxide 28 mmol/L (22-30); Chloride 105 mmol/L (98-107); Estimated CRCL calculation 49 ml/min; Estimated Glomerular Filt Rate 58; Glucose 114 mg/dL (65-110); Magnesium 2.3 mg/dL (1.6-2.3); Potassium 4.4 mmol/L (3.4-5.0); Sodium 138 mmol/L (137-145)
[2020-09-30 05:22] LABS: Alveolar/Arterial O2 Gradient 551.3 mmHg; Base Excess ABG 2.3 mEq/l (+/-2.0); Carboxyhemoglobin 0.3 % THb (0-2.0); Fractional Inspired Oxygen 100 %; HCO3 ABG 26.7 mEq/l (22.0-26.0); Methemoglobin ABG 0.3 %THb (0-1.5); Oxygen Content ABG 19.7 %vol (16.0-22.0); Oxygen Saturation ABG 98.5 % (95.0-100.0); PCO2 ABG 40.8 mmHg (35.0-45.0); PO2 ABG 120.9 mmHg (80.0-100.0); PO2 FiO2 Ratio Arterial Blood 1.21 %; Reduced Hemoglobin 2.4 %THb (0-5.0); Site Drawn LEFT RADIAL; Total Hemoglobin 14.3 g/dL (12.0-18.0); pH ABG 7.434 (7.350-7.450)
[2020-09-30 05:23] LABS: Device NON-INVASIVE VENT; Modified Allen's Test Pass; Non-Invasive Expiratory Pressure 8 CMH2O; Non-Invasive Inspiratory Pressure 12 CMH2O; Non-Invasive Vent Rate 4 /MIN
[2020-09-30] MEDS: BUDESONIDE RESPULE NEB 0.5 MG/2 ML AMP INHALATION ×2 (07:50→22:01)
[2020-09-30] MEDS: PANTOPRAZOLE SODIUM IV 40 MG VIAL IV PUSH (09:03)
[2020-09-30 11:04] LABS: Partial Thromboplastin Time 85.6 SECONDS (22.3-36.8)
--- NOTE | 2020-09-30 11:26 | PCDIET ---
Nutrition Follow-Up Complete: Nutrition Diagnosis: Suboptimal oral intake related to COVID as evidenced by varying intakes since admission. Nutrition Goal: Patient to consume 50% of meals/supplements or greater. Goal not met. Patient did eat better on 09/29/20 (about 30% of meals with 2 Ensure Compact supplements) but was made NPO that evening due to bipap use. If unable to advance diet in the next 48 hours, would consider nutrition support. If respiratory status worsens and patient is intubated, recommend Vital 1.2 at 20mL/hr, advancing by 10mL/hr every 6-8 hours, as tolerated, to goal of 65mL/hr for 1716kcal and 107g protein over 22 hours/day. Last recorded weight is 80.4 kg which is increased from last review. Bowel Motility: Last documented BM on 09/25/20 x 2. Labs Reviewed: WBC (10.8), RBC (4.21), Hgb (13.2), Hct (40.9), Glu (114), BUN (49), Alb (2.6) Meds Noted: Albuterol, Pulmicort, Precedex, Atrovent, Protonix Additional Notes: No documented skin breakdown. Will continue to monitor. Nutrition Monitoring and Evaluation: Follow up every 3 days.
[2020-09-30] MEDS: dexmedeTOMIDine 400 MCG/100 ML 400 MCG/100 ML BAG IV CONT (13:52)
--- NOTE | 2020-09-30 15:04 | WPDINTPN ---
Progress Note: A&P Assessment and Plan (1) Acute respiratory failure with hypoxia: Code(s): J96.01 - Acute respiratory failure with hypoxia Status: Acute Assessment and Plan: Patient with acute respiratory failure with increasing oxygen requirement, likely secondary to COVID pneumonia -on BiPAP overnight and will try to transition patient again today to Airvo -chest x-ray shows diffuse bilateral airspace disease with no significant changes to prior chest x-ray -ABGs reviewed, much improved -continue bronchodilators along with Pulmicort (2) Pneumonia due to COVID-19 virus: Code(s): U07.1 - COVID-19; J12.82 - Pneumonia due to coronavirus disease 2019 Status: Acute Assessment and Plan: Patient positive for COVID-19 on 09/18/2020. Patient has NOT received a COVID vaccine -patient has completed a 10 day course of dexamethasone and remdesivir -patient received tocilizumab on 09/24/2020 -continue droplet, airborne and contact isolation/precautions -inflammatory markers are elevated, will continue to trend (3) KATERYNA (acute kidney injury): Code(s): N17.9 - Acute kidney failure, unspecified Status: Acute Assessment and Plan: Patient admitted with acute kidney injury, has resolved since then, creatinine has been stable (4) DVT prophylaxis: Code(s): Z29.9 - Encounter for prophylactic measures, unspecified Status: Acute Assessment and Plan: DVT prophylaxis: heparin infusion Stress ulcer prophylaxis: Protonix (5) Peripheral arterial disease: Code(s): I73.9 - Peripheral vascular disease, unspecified Status: Acute Assessment and Plan: Ischemia of the left hand. -according the bedside RN Left hand was cold and the left radial artery was not palpable between the night of 09/26/2020 and 09/27/2020 -patient was started on infusions - 09/27/2020: . Decreased pressures in left ulnar artery and left finger, consistent with arterial occlusive disease -a transferred to [facility] has been initiated, patient has been accepted and awaiting bed placement -today I did not feel any difference between left versus right hand. Left radial pulse was good and both hands were equally warm and had similar color, cap refill is adequate in left hand (6) CHF (congestive heart failure): Code(s): I50.9 - Heart failure, unspecified Status: Acute Assessment and Plan: ECHO showed diastolic dysfunction 1. Complete two-dimensional, color flow and Doppler transthoracic echocardiogram is performed. 2. Left ventricular chamber dimension is normal. 3. Left ventricular systolic function is normal, estimated at 55-60%. 4. There is mildly increased left ventricular wall thickness. 5. The left ventricular diastolic function is grade I diastolic dysfunction. 6. E/e' 12 is mildly elevated. 7. There is mild to moderate aortic valve regurgitation. 8. The mitral valve has mildly calcified annulus. 9. No pulmonary hypertension, estimated pulmonary arterial systolic pressure is 29 mmHg. 10. The aortic root size at the sinus of Valsalva is borderline dilated at 4.0 cm.. BNP was elevated at 915 . Blood pressures to soft Will are diuresis at this time Additional Plan Code status: Full code Critical care time spent: 30 minutes This dictation may have been done utilizing a voice recognition system. Attempts have been made to correct errors. However, there may be uncorrected grammatical, spelling, and recognition errors present. Due to a high probability of clinically significant, life threatening deterioration, the patient required my highest level of preparedness to intervene emergently and I personally spent this critical care time directly and personally managing the patient. This critical care time included obtaining a history; examining the patient; pulse oximetry; ordering and review of studies; arranging urgent treatment with development of a
[2020-09-30 19:20] LABS: Partial Thromboplastin Time 43.7 SECONDS (22.3-36.8)
[2020-09-30] MEDS: HEPARIN SODIUM 5,000 UNITS/ML VIAL 7000 UNITS IV PUSH (19:53)
[2020-10-01] VITALS (31 sets, daily range): BP systolic 90–110; BP diastolic 58–68; PULSE 61–93; RESP 16–30; TEMP 36.6–37; O2SAT 66–99
[2020-10-01] MEDS: ALBUTEROL SULFATE NEB 2.5 MG/0.5 ML INH INHALATION ×6 (01:15→21:35)
[2020-10-01] MEDS: IPRATROPIUM BR 0.02% INH SOLN 0.5 MG/2.5 ML VIAL INHALATION ×6 (01:15→21:35)
[2020-10-01 03:22] LABS: Partial Thromboplastin Time > 200.0 SECONDS (22.3-36.8)
[2020-10-01 05:04] LABS: Basophils Percent Auto 0.2 % (0.2-1.2); Eosinophils Absolute Auto 0.1 K/mm3 (0-0.3); Eosinophils Percent Auto 1.4 % (0-4.4); Hematocrit 41.7 % (42.0-52.0); Hemoglobin 13.4 g/dL (14.0-18.0); Immature Granulocyte Absolute 0.07 K/mm3 (0.00-0.031); Immature Granulocyte Percent A 0.7 % (0-0.5); Lymphocytes Absolute Auto 2.55 K/mm3 (0.9-3.2); Lymphocytes Percent Auto 25.7 % (18.3-44.2); Mean Corpuscular HGB Conc 32.1 g/dl (32-36); Mean Corpuscular Hemoglobin 31.2 pg (26-34); Mean Platelet Volume 9.8 fl (7.4-10.4); Monocytes Absolute Auto 0.7 K/mm3 (0.1-0.6); Monocytes Percent Auto 6.7 % (2.6-8.5); Neutrophils Absolute Auto 6.5 K/mm3 (1.3-6.7); Neutrophils Percent Auto 65.3 % (45.5-73.1); Platelet Count Result 203 k/mm3 (150-375); Red Cell Distribution Width 12.7 % (11.5-14.5); White Blood Count 9.9 K/mm3 (4.5-10.0)
[2020-10-01 05:35] LABS: Anion Gap 3 mmol/L (8-16); Blood Urea Nitrogen 53 mg/dL (9-20); Calcium 8.6 mg/dL (8.4-10.2); Carbon Dioxide 28 mmol/L (22-30); Chloride 107 mmol/L (98-107); Estimated CRCL calculation 49 ml/min; Estimated Glomerular Filt Rate 58; Glucose 102 mg/dL (65-110); Potassium 4.4 mmol/L (3.4-5.0); Sodium 138 mmol/L (137-145)
[2020-10-01] MEDS: SALINE LOCK FLUSH 10 ML IV PUSH ×3 (05:40→21:12)
[2020-10-01 06:01] LABS: CRP < 0.5 mg/dL (<1.0); Lactate Dehydrogenase 900 U/L (313-618)
[2020-10-01 06:06] LABS: NT Pro B Type Natriuretic Pept 667 pg/mL (5-100)
[2020-10-01] MEDS: PANTOPRAZOLE SODIUM IV 40 MG VIAL IV PUSH (08:15)
[2020-10-01] MEDS: BUDESONIDE RESPULE NEB 0.5 MG/2 ML AMP INHALATION ×2 (09:46→21:35)
[2020-10-01 11:18] LABS: Partial Thromboplastin Time 76.1 SECONDS (22.3-36.8)
--- NOTE | 2020-10-01 12:33 | WPDINTPN ---
Progress Note: A&P Assessment and Plan (1) Acute respiratory failure with hypoxia: Code(s): J96.01 - Acute respiratory failure with hypoxia Status: Acute Assessment and Plan: Patient with acute respiratory failure with increasing oxygen requirement, likely secondary to COVID pneumonia Off BiPAP and now on Airvo. 85% and 60 L flow -chest x-ray shows diffuse bilateral airspace disease with no significant changes to prior chest x-ray -ABGs reviewed, much improved -continue bronchodilators along with Pulmicort -hold Precedex (2) Pneumonia due to COVID-19 virus: Code(s): U07.1 - COVID-19; J12.82 - Pneumonia due to coronavirus disease 2019 Status: Acute Assessment and Plan: Patient positive for COVID-19 on 09/18/2020. Patient has NOT received a COVID vaccine -patient has completed a 10 day course of dexamethasone and remdesivir -patient received tocilizumab on 09/24/2020 -continue droplet, airborne and contact isolation/precautions -inflammatory markers are elevated, will continue to trend (3) KATERYNA (acute kidney injury): Code(s): N17.9 - Acute kidney failure, unspecified Status: Acute Assessment and Plan: Patient admitted with acute kidney injury, has resolved since then, creatinine has been stable (4) DVT prophylaxis: Code(s): Z29.9 - Encounter for prophylactic measures, unspecified Status: Acute Assessment and Plan: DVT prophylaxis: heparin infusion Stress ulcer prophylaxis: Protonix (5) Peripheral arterial disease: Code(s): I73.9 - Peripheral vascular disease, unspecified Status: Acute Assessment and Plan: Ischemia of the left hand. -according the bedside RN Left hand was cold and the left radial artery was not palpable between the night of 09/26/2020 and 09/27/2020 -patient was started on infusions - 09/27/2020: . Decreased pressures in left ulnar artery and left finger, consistent with arterial occlusive disease -a transferred to [facility] has been initiated, patient has been accepted and awaiting bed placement. I spoke to housekeeper manager at [facility] and they do not have any record of this patient at this time. -today I did not feel any difference between left versus right hand. Left radial pulse was good and both hands were equally warm and had similar color, cap refill is adequate in left hand. -I will consult Cardiology for any recommendations (6) CHF (congestive heart failure): Code(s): I50.9 - Heart failure, unspecified Status: Acute Assessment and Plan: ECHO showed diastolic dysfunction 1. Complete two-dimensional, color flow and Doppler transthoracic echocardiogram is performed. 2. Left ventricular chamber dimension is normal. 3. Left ventricular systolic function is normal, estimated at 55-60%. 4. There is mildly increased left ventricular wall thickness. 5. The left ventricular diastolic function is grade I diastolic dysfunction. 6. E/e' 12 is mildly elevated. 7. There is mild to moderate aortic valve regurgitation. 8. The mitral valve has mildly calcified annulus. 9. No pulmonary hypertension, estimated pulmonary arterial systolic pressure is 29 mmHg. 10. The aortic root size at the sinus of Valsalva is borderline dilated at 4.0 cm.. BNP was elevated at 915 . Blood pressures too soft to allow diuresis at this time. Add midodrine Additional Plan Code status: Full code Incentive spirometry Up to chair Critical care time spent: 30 minutes This dictation may have been done utilizing a voice recognition system. Attempts have been made to correct errors. However, there may be uncorrected grammatical, spelling, and recognition errors present. Due to a high probability of clinically significant, life threatening deterioration, the patient required my highest level of preparedness to intervene emergently and I personally spent this critical care time directly a
[2020-10-01] MEDS: MIDODRINE HCL 2.5 MG TABLET 5 MG PO ×2 (14:12→17:22)
[2020-10-01] MEDS: HEPARIN SOD/D5W 100 UNITS/ML 25,000 UNITS/250 ML BAG 7 UNITS IV CONT (14:12)
--- NOTE | 2020-10-01 16:14 | PM.CNCAR ---
Assessment and Plan Assessment and plan (1) Arterial embolism: Code(s): I74.9 - Embolism and thrombosis of unspecified artery Status: Acute Assessment and Plan: Patient has not had any atrial fibrillation, nor any evidence of SBE to account for his arterial embolus. No mention of any significant large vessel atherosclerotic disease by the patient's CT scans. 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 Arterial embolism is an infrequent complication of COVID infection, but is associated with COVID pneumonia especially in hospitalized patients and can occur to the upper extremities. Fortunately he has regained good circulation to the left hand with heparin infusion and there is no emergency at this time. Recommend transitioning to warfarin, Eliquis or Xarelto at some point; there is no evidence that 1 is better than the other. (2) Pneumonia due to COVID-19 virus: Code(s): U07.1 - COVID-19; J12.82 - Pneumonia due to coronavirus disease 2018 Status: Acute Assessment and Plan: Patient with respiratory failure, on high-flow oxygen, recovering from severe COVID pneumonia. History of Present Illness History of Present Illness Consult date/time: 10/01/20 16:14 Requesting physician: Esdras Ahuja MD Consult reason: Other (Ischemic left hand) Reason For Visit: KATERYNA, Dehydration Narrative: Date of service 10/01/2020 Mr. Negrito Valdez is a previously healthy 79-year-old male admitted to [facility] 09/18/2020 with COVID pneumonia and respiratory failure. He has received standard medical therapy with remdesivir, dexamethasone,tocilizumab etc. I do not believe he has required intubation but is on high-flow oxygen. I was asked to see him to provide my advice and opinion regarding his ischemic left hand, in consultation. The patient's left hand was cold and he lost left radial pulse on the night of 09/26/2020 and 09/27/2020. Decreased pressures were noted in the left ulnar artery and left fingers consistent with arterial occlusive disease, and transfer to [facility] had been initiated but there are no beds available. He was not on any pressors at the time and has maintained sinus rhythm. He was receiving enoxaparin 40 mg subcu q.12 hours. He was started on heparin infusion. In the meantime the patient has had return of pulse in his left hand. No h/o heart disease or arrhythmias. Review of Systems Review of Systems: sean IVY historian, most of ROS obtained fr the chart ROS unobtainable: Yes unobtainable due to medical condition Constitutional: Constitutional: Reports weakness Eyes: Eyes: Reports no additional eye complaints ENT: Denies Normal hearing present Cardiovascular: Cardiovascular: Denies chest pain, Denies pedal edema, Denies leg edema, Denies lightheadedness and Denies palpitations Respiratory: Respiratory: Reports chest congestion, Reports cough, Denies hemoptysis, Reports dyspnea and Reports dyspnea on exertion Gastrointestinal: Gastrointestinal: Denies abdominal pain and Denies melena Genitourinary: Genitourinary: Denies dysuria Musculoskeletal: Musculoskeletal: Reports no additional musculoskeletal complaints Integumentary/Breasts: Skin/Breast: Denies rash Neurologic: Reports system reviewed and no additional complaints, except as documented Psychiatric: Psychiatric: Reports no additional psychiatric complaints COUNTS INCLUDE 234 BEDS AT THE [facility] Past Medical History Medical History (Updated 10/01/20 @ 16:57 by Shante Galloway MD) Colon cancer Prostate cancer Surgical History Surgical Histor
[2020-10-01 17:45] LABS: Partial Thromboplastin Time 73.9 SECONDS (22.3-36.8)
[2020-10-02] VITALS (20 sets, daily range): BP systolic 99–126; BP diastolic 66–82; PULSE 72–92; RESP 17–30; TEMP 36.6–37.2; O2SAT 90–99
[2020-10-02] MEDS: ALBUTEROL SULFATE NEB 2.5 MG/0.5 ML INH INHALATION ×3 (03:26→21:46)
[2020-10-02] MEDS: IPRATROPIUM BR 0.02% INH SOLN 0.5 MG/2.5 ML VIAL INHALATION ×3 (03:26→21:46)
[2020-10-02 05:45] LABS: Hematocrit 37.5 % (42.0-52.0); Hemoglobin 12.3 g/dL (14.0-18.0); Mean Corpuscular HGB Conc 32.8 g/dl (32-36); Mean Corpuscular Hemoglobin 31.2 pg (26-34); Mean Corpuscular Volume 95.2 fl (80-100); Mean Platelet Volume 10.1 fl (7.4-10.4); Platelet Count Result 216 k/mm3 (150-375); Red Blood Count 3.94 M/mm3 (4.6-6.20); Red Cell Distribution Width 12.6 % (11.5-14.5); White Blood Count 13.6 K/mm3 (4.5-10.0)
[2020-10-02 05:59] LABS: Anion Gap 4 mmol/L (8-16); Blood Urea Nitrogen 53 mg/dL (9-20); Calcium 8.4 mg/dL (8.4-10.2); Carbon Dioxide 28 mmol/L (22-30); Chloride 104 mmol/L (98-107); Estimated CRCL calculation 49 ml/min; Estimated Glomerular Filt Rate 58; Glucose 94 mg/dL (65-110); Potassium 4.1 mmol/L (3.4-5.0); Sodium 136 mmol/L (137-145)
[2020-10-02 06:02] LABS: Partial Thromboplastin Time 54.1 SECONDS (22.3-36.8)
[2020-10-02] MEDS: HEPARIN SODIUM 5,000 UNITS/ML VIAL 7000 UNITS IV PUSH (06:14)
[2020-10-02] MEDS: SALINE LOCK FLUSH 10 ML IV PUSH ×2 (06:16→15:27)
[2020-10-02] MEDS: BUDESONIDE RESPULE NEB 0.5 MG/2 ML AMP INHALATION ×2 (07:56→21:46)
[2020-10-02] MEDS: PANTOPRAZOLE SODIUM IV 40 MG VIAL IV PUSH (08:32)
[2020-10-02] MEDS: MIDODRINE HCL 2.5 MG TABLET 5 MG PO ×3 (08:32→17:43)
--- NOTE | 2020-10-02 11:54 | WPDINTPN ---
Progress Note: A&P Assessment and Plan (1) Acute respiratory failure with hypoxia: Code(s): J96.01 - Acute respiratory failure with hypoxia Status: Acute Assessment and Plan: Patient with acute respiratory failure with increasing oxygen requirement, likely secondary to COVID pneumonia Off BiPAP and now on Airvo. 75% and 60 L flow -chest x-ray shows diffuse bilateral airspace disease with no significant changes to prior chest x-ray -ABGs reviewed, much improved -continue bronchodilators along with Pulmicort - continue to hold Precedex - will give Lasix (2) Pneumonia due to COVID-19 virus: Code(s): U07.1 - COVID-19; J12.82 - Pneumonia due to coronavirus disease 2019 Status: Acute Assessment and Plan: Patient positive for COVID-19 on 09/18/2020. Patient has NOT received a COVID vaccine -patient has completed a 10 day course of dexamethasone and remdesivir -patient received tocilizumab on 09/24/2020 -continue droplet, airborne and contact isolation/precautions -inflammatory markers are elevated, will continue to trend (3) KATERYNA (acute kidney injury): Code(s): N17.9 - Acute kidney failure, unspecified Status: Acute Assessment and Plan: Patient admitted with acute kidney injury, has resolved since then, creatinine has been stable (4) Peripheral arterial disease: Code(s): I73.9 - Peripheral vascular disease, unspecified Status: Acute Assessment and Plan: Ischemia of the left hand. -according the bedside RN Left hand was cold and the left radial artery was not palpable between the night of 09/26/2020 and 09/27/2020 -patient was started on infusions - 09/27/2020: . Decreased pressures in left ulnar artery and left finger, consistent with arterial occlusive disease -a transferred to [facility] has been initiated, patient has been accepted and awaiting bed placement. I spoke to warehouse general laborer at [facility] and they do not have any record of this patient at this time. -today I did not feel any difference between left versus right hand. Left radial pulse was good and both hands were equally warm and had similar color, cap refill is adequate in left hand. left ulnar pulse definitely weaker than right but is easily palpable and dopplerable -I discussed with cardiology in the recommend continue anticoagulation and switching to p.o. anticoagulation at this time. they would like to do SHAQUILLE but considering patient respiratory status would defer at this time - I will transition patient from heparin infusion to Eliquis (5) CHF (congestive heart failure): Code(s): I50.9 - Heart failure, unspecified Status: Acute Assessment and Plan: ECHO showed diastolic dysfunction 1. Complete two-dimensional, color flow and Doppler transthoracic echocardiogram is performed. 2. Left ventricular chamber dimension is normal. 3. Left ventricular systolic function is normal, estimated at 55-60%. 4. There is mildly increased left ventricular wall thickness. 5. The left ventricular diastolic function is grade I diastolic dysfunction. 6. E/e' 12 is mildly elevated. 7. There is mild to moderate aortic valve regurgitation. 8. The mitral valve has mildly calcified annulus. 9. No pulmonary hypertension, estimated pulmonary arterial systolic pressure is 29 mmHg. 10. The aortic root size at the sinus of Valsalva is borderline dilated at 4.0 cm.. BNP was elevated at 915 . will give Lasix today (6) DVT prophylaxis: Code(s): Z29.9 - Encounter for prophylactic measures, unspecified Status: Acute Assessment and Plan: DVT prophylaxis: heparin infusion Additional Plan Code status: Full code Incentive spirometry Up to chair PT/OT consult Critical care time spent: 30 minutes This dictation may have been done utilizing a voice recognition system. Attempts have been made to correct errors. However, there may be uncorrect
--- NOTE | 2020-10-02 12:10 | PM.PNCARD ---
Progress Note: A&P Additional Plan Acute left arm arterial embolism in setting of COVID-19 pneumonia, likely cause but can't rule out cardiac rouse of embolism, plan oral anticoagulation and consider loop recorder or event monitor on discharge. Subjective Date/time seen: 10/02/20 12:10 Interval history: no acute events NSR in Tele Hand pulses are back and stable Review of Systems Review of Systems: ROS unobtainable: Yes unobtainable due to medical condition and unobtainable due to mental status Exam Const: General: no acute distress and lethargic Resp: Effort & Inspection: normal respiratory effort and symmetric chest movement Auscultation: crackles bilateral and diminished lung sounds bilateral Cardio: Jugular venous distension: no JVD Rate: regular rate Rhythm: regular rhythm Heart sounds: S1 normal heart sound present and S2 normal heart sound present Objective Data Vital Signs Vital Signs: Vital Signs - 24 hr 10/01/20 12:26 10/01/20 14:00 10/01/20 15:30 Temperature Pulse Rate 74 78 Respiratory Rate 27 H 24 H 24 H Blood Pressure 96/68 L Pulse Oximetry 92 10/01/20 15:36 10/01/20 16:00 10/01/20 18:00 Temperature 36.6 C Pulse Rate 69 67 61 Respiratory Rate 18 20 Blood Pressure 94/58 L 110/65 Pulse Oximetry 94 98 10/01/20 20:00 10/01/20 21:36 10/01/20 21:46 Temperature 36.8 C Pulse Rate 70 72 78 Respiratory Rate 20 23 H 21 H Blood Pressure 97/61 L Pulse Oximetry 97 95 10/01/20 22:00 10/02/20 00:00 10/02/20 02:00 Temperature 37.0 C 36.9 C 36.8 C Pulse Rate 80 73 77 Respiratory Rate 30 H 20 20 Blood Pressure 106/66 105/66 102/71 Pulse Oximetry 90 98 97 10/02/20 03:27 10/02/20 03:35 10/02/20 04:00 Temperature 37.1 C Pulse Rate 77 78 79 Respiratory Rate 22 H 27 H 30 H Blood Pressure 115/69 Pulse Oximetry 97 99 10/02/20 06:00 10/02/20 07:58 10/02/20 08:00 Temperature 37.2 C 37.2 C Pulse Rate 90 85 Respiratory Rate 30 H 22 H 22 H Blood Pressure 114/70 115/72 Pulse Oximetry 98 90 10/02/20 08:01 10/02/20 10:00 10/02/20 11:47 Temperature Pulse Rate 82 80 Respiratory Rate 22 H Blood Pressure 110/73 Pulse Oximetry 97 96 98 10/02/20 12:00 Temperature 37.1 C Pulse Rate 90 Respiratory Rate 24 H Blood Pressure 106/82 Pulse Oximetry 98 Intake/Output Intake/Output: Intake & Output 09/29/20 09/30/20 10/01/20 10/02/20 23:59 23:59 23:59 23:59 Intake Total 809 466 601 307 Output Total 750 625 450 275 Balance 59 -159 151 32 Meds/Results Medications: Active Medications Generic Name Dose Route Start Last Admin Trade Name Freq PRN Reason Stop Dose Admin Acetaminophen 650 mg 09/18/20 12:40 09/29/20 02:48 Acetaminophen 325 Mg Tablet PO 650 mg Q6H PRN Administration Mild Pain (1-3) or Fever Al Hydrox/Mg Hydrox/Simethicone 30 ml 09/18/20 12:40 09/19/20 17:04 Mag Hydrox/Al Hydrox/Simeth 30 Ml Udc PO 30 ml QID PRN Administration Dyspepsia Albuterol 2.5 mg 10/01/20 14:00 10/02/20 07:57 Albuterol Sulfate Neb 2.5 Mg/0.5 Ml Inh INHALATION 2.5 mg Q6HRT JINNY Administration Apixaban 5 mg 10/02/20 21:00 Apixaban 5 Mg Tablet PO Q12HR JINNY Budesonide 0.5 mg 09/25/20 09:20 10/02/20 07:56 Budesonide Respule Neb 0.5 Mg/2 Ml Amp INHALATION 0.5 mg Q12HRT JINNY Administration Furosemide 40 mg 10/02/20 12:02 Furosemide Inj 40 Mg/4 Ml Vial IV PUSH 10/02/20 12:03 ONCE ONE Heparin Sodium (Porcine) 7,000 units 09/26/20 23:01 10/02/20 06:14 Heparin Sodium 5,000 Units/Ml Vial IV PUSH 7,000 units PRN PRN Administration aPTT less than 55 seconds Heparin Sodium (Porcine) 3,500 units 09/26/20 23:01 09/29/20 20:20 Heparin Sodium 5,000 Units/Ml Vial IV PUSH 3,500 units PRN PRN Administration aPTT 55 - 70 seconds Heparin Sodium/Dextrose 25,000 units in 250 mls @ 10 mls/hr 09/26/20 23:05 10/02/20 06:15 Heparin Sodium/D5w 100 Units/Ml IV CONT 08
[2020-10-02] MEDS: FUROSEMIDE INJ 40 MG/4 ML VIAL IV PUSH (12:28)
[2020-10-02] MEDS: APIXABAN 5 MG TABLET PO (17:38)
[2020-10-03] VITALS (20 sets, daily range): BP systolic 106–145; BP diastolic 48–79; PULSE 82–116; RESP 20–96; TEMP 37–37.6; O2SAT 91–96
[2020-10-03] MEDS: SALINE LOCK FLUSH 10 ML IV PUSH ×4 (01:46→20:53)
[2020-10-03] MEDS: IPRATROPIUM BR 0.02% INH SOLN 0.5 MG/2.5 ML VIAL INHALATION ×4 (03:20→20:10)
[2020-10-03] MEDS: ALBUTEROL SULFATE NEB 2.5 MG/0.5 ML INH INHALATION ×4 (03:20→20:11)
[2020-10-03 05:00] LABS: D Dimer 2.84 ug/mL (<0.48)
[2020-10-03 05:17] LABS: Lactate Dehydrogenase 830 U/L (313-618)
[2020-10-03 05:34] LABS: CRP < 0.5 mg/dL (<1.0)
[2020-10-03] MEDS: BUDESONIDE RESPULE NEB 0.5 MG/2 ML AMP INHALATION ×2 (08:18→20:10)
[2020-10-03] MEDS: MIDODRINE HCL 2.5 MG TABLET 5 MG PO ×3 (08:43→17:56)
[2020-10-03] MEDS: APIXABAN 5 MG TABLET PO ×2 (08:43→20:53)
[2020-10-03] MEDS: FUROSEMIDE INJ 40 MG/4 ML VIAL IV PUSH (08:43)
--- NOTE | 2020-10-03 11:14 | PCDIET ---
Nutrition Follow-Up Complete: Nutrition Diagnosis: Suboptimal oral intake related to COVID as evidenced by varying intakes since admission. Nutrition Goal: Patient to consume 50% of meals/supplements or greater. Goal not met. Patient on clear liquid diet with Ensure Clear TID consuming 25% of most meals or less. If aggressive nutritional therapy is desired, recommend supplemental nutrition support. Last recorded weight is 55.4 kg which is significantly decreased from last review. Recommend re-weighing to ensure accuracy. Bowel Motility: Last documented BM on 09/25/20. Recommend adding medication(s) to promote BM, if medically appropriate. Labs Reviewed: WBC (13.6), RBC (3.94), Hgb (12.3), Hct (37.5), BUN (53), Na (136) Meds Noted: Albuterol, Midodrine, Lasix, Pulmicort, Atrovent Additional Notes: No documented skin breakdown. Will continue to monitor with same goal. Nutrition Monitoring and Evaluation: Follow up every 3 days.
[2020-10-03 12:50] LABS: Blood Urea Nitrogen 56 mg/dL (9-20); Calcium 8.6 mg/dL (8.4-10.2); Chloride 104 mmol/L (98-107); Estimated CRCL calculation 28 ml/min; Estimated Glomerular Filt Rate 45; Glucose 95 mg/dL (65-110); Potassium 3.6 mmol/L (3.4-5.0); Sodium 139 mmol/L (137-145)
[2020-10-03 13:07] LABS: Anion Gap 0 mmol/L (8-16); Carbon Dioxide 35 mmol/L (22-30)
--- NOTE | 2020-10-03 14:40 | WPDINTPN ---
Progress Note: A&P Assessment and Plan (1) Acute respiratory failure with hypoxia: Code(s): J96.01 - Acute respiratory failure with hypoxia Status: Acute Assessment and Plan: Patient with acute respiratory failure with increasing oxygen requirement, likely secondary to COVID pneumonia Off BiPAP and now on Airvo. 70% and 60 L flow -chest x-ray shows diffuse bilateral airspace disease with no significant changes to prior chest x-ray -ABGs reviewed, much improved -continue bronchodilators along with Pulmicort - continue Lasix (2) Pneumonia due to COVID-19 virus: Code(s): U07.1 - COVID-19; J12.82 - Pneumonia due to coronavirus disease 2018 Status: Acute Assessment and Plan: Patient positive for COVID-19 on 09/18/2020. Patient has NOT received a COVID vaccine -patient has completed a 10 day course of dexamethasone and remdesivir -patient received tocilizumab on 09/24/2020 -continue droplet, airborne and contact isolation/precautions -inflammatory markers are elevated, will continue to trend (3) KATERYNA (acute kidney injury): Code(s): N17.9 - Acute kidney failure, unspecified Status: Acute Assessment and Plan: Patient admitted with acute kidney injury, has resolved since then, creatinine has been stable (4) Peripheral arterial disease: Code(s): I73.9 - Peripheral vascular disease, unspecified Status: Acute Assessment and Plan: Ischemia of the left hand. -according the bedside RN Left hand was cold and the left radial artery was not palpable between the night of 09/26/2020 and 09/27/2020 -patient was started on infusions - 09/27/2020: . Decreased pressures in left ulnar artery and left finger, consistent with arterial occlusive disease -a transferred to [facility] has been initiated, patient has been accepted and awaiting bed placement. I spoke to in house cra at [facility] and they do not have any record of this patient at this time. -today I did not feel any difference between left versus right hand. Left radial pulse was good and both hands were equally warm and had similar color, cap refill is adequate in left hand. left ulnar pulse definitely weaker than right but is easily palpable and dopplerable -I discussed with cardiology in the recommend continue anticoagulation and switching to p.o. anticoagulation at this time. they would like to do SHAQUILLE but considering patient respiratory status would defer at this time - patient has been transitioned from heparin infusion to Eliquis (5) CHF (congestive heart failure): Code(s): I50.9 - Heart failure, unspecified Status: Acute Assessment and Plan: ECHO showed diastolic dysfunction 1. Complete two-dimensional, color flow and Doppler transthoracic echocardiogram is performed. 2. Left ventricular chamber dimension is normal. 3. Left ventricular systolic function is normal, estimated at 55-60%. 4. There is mildly increased left ventricular wall thickness. 5. The left ventricular diastolic function is grade I diastolic dysfunction. 6. E/e' 12 is mildly elevated. 7. There is mild to moderate aortic valve regurgitation. 8. The mitral valve has mildly calcified annulus. 9. No pulmonary hypertension, estimated pulmonary arterial systolic pressure is 29 mmHg. 10. The aortic root size at the sinus of Valsalva is borderline dilated at 4.0 cm.. will give Lasix again today (6) DVT prophylaxis: Code(s): Z29.9 - Encounter for prophylactic measures, unspecified Status: Acute Assessment and Plan: DVT prophylaxis: Eliquis Additional Plan Code status: Full code Incentive spirometry Up to chair PT/OT consult transfer out of ICU today Subjective Date/time seen: 10/03/20 14:40 he continues to tolerate Airvo and denies any new complaints. States that he feels fine patient is a poor historian and very hard of hearing. He states he gets
[2020-10-03] MEDS: ACETAMINOPHEN 325 MG TABLET 650 MG PO (20:53)
[2020-10-04] VITALS (26 sets, daily range): BP systolic 96–124; BP diastolic 66–82; PULSE 78–123; RESP 19–34; TEMP 36.7–37.7; O2SAT 90–98
[2020-10-04] MEDS: ALBUTEROL SULFATE NEB 2.5 MG/0.5 ML INH INHALATION ×4 (02:14→20:32)
[2020-10-04] MEDS: IPRATROPIUM BR 0.02% INH SOLN 0.5 MG/2.5 ML VIAL INHALATION ×4 (02:14→20:32)
[2020-10-04 05:02] LABS: Hemoglobin 13.4 g/dL (14.0-18.0); Mean Corpuscular HGB Conc 31.9 g/dl (32-36); Mean Corpuscular Hemoglobin 31.2 pg (26-34); Mean Corpuscular Volume 97.9 fl (80-100); Mean Platelet Volume 10.1 fl (7.4-10.4); Platelet Count Result 248 k/mm3 (150-375); Red Blood Count 4.29 M/mm3 (4.6-6.20); White Blood Count 17.3 K/mm3 (4.5-10.0)
[2020-10-04 05:14] LABS: Alanine Aminotransferase 24 U/L (4-50); Alkaline Phosphatase 77 U/L (38-126); Anion Gap 6 mmol/L (8-16); Aspartate Amino Transferase 20 U/L (17-59); Blood Urea Nitrogen 66 mg/dL (9-20); Calcium 8.8 mg/dL (8.4-10.2); Carbon Dioxide 31 mmol/L (22-30); Chloride 101 mmol/L (98-107); Estimated CRCL calculation 27 ml/min; Estimated Glomerular Filt Rate 42; Glucose 97 mg/dL (65-110); Magnesium 2.3 mg/dL (1.6-2.3); Sodium 138 mmol/L (137-145)
[2020-10-04] MEDS: SALINE LOCK FLUSH 10 ML IV PUSH ×3 (05:45→20:42)
[2020-10-04] MEDS: BUDESONIDE RESPULE NEB 0.5 MG/2 ML AMP INHALATION ×2 (08:31→20:32)
[2020-10-04] MEDS: MIDODRINE HCL 2.5 MG TABLET 5 MG PO ×3 (08:43→17:32)
[2020-10-04] MEDS: APIXABAN 5 MG TABLET PO ×2 (08:44→20:42)
--- NOTE | 2020-10-04 09:01 | PCOTNOTE ---
Attempted to see pt for occupational therapy evaluation. Per nurse report, pt. on 60 L O2 with )2 sat fluctuating between 74-95% with no activity
[2020-10-04] MEDS: FUROSEMIDE INJ 40 MG/4 ML VIAL IV PUSH (10:51)
--- NOTE | 2020-10-04 11:08 | PCSTNOTE ---
Please refer to the Bedside Swallow Evaluation in the EMR. Please note, silent aspiration cannot be ruled out at bedside.
--- NOTE | 2020-10-04 11:31 | PCDIET ---
ICU Rounding Note: WIRE SAWYER recommending diet advancement to pureed with thin liquids. MD ordering to advance diet, per WIRE SAWYER. Recommend changing supplement from Ensure Clear to Ensure Enlive (350kcal, 20g protein) to optimize intake. Last recorded weight is 56kg which is slightly increased from last review. Bowel Motility: +BM today x 1. Labs Reviewed: WBC (17.3), RBC (4.29), Hgb (13.4), BUN (66), Cr (1.6), Alb (3.0) Meds Noted: Albuterol, Atrovent, Pulmicort, Midodrine, Lasix Additional Notes: No documented skin breakdown. Following daily in ICU rounds. Assessing/reassessing every 3 days.
--- NOTE | 2020-10-04 13:06 | PM.IMPN ---
Progress Note: A&P Assessment and Plan (1) Acute respiratory failure with hypoxia: Code(s): J96.01 - Acute respiratory failure with hypoxia Status: Acute Assessment and Plan: Patient with acute respiratory failure with increasing oxygen requirement, likely secondary to COVID pneumonia Off BiPAP and now on Airvo. 70% and 60 L flow -chest x-ray shows diffuse bilateral airspace disease with no significant changes to prior chest x-ray -ABGs reviewed, much improved -continue bronchodilators along with Pulmicort - continue Lasix - consult speech for swallow evaluation (2) Pneumonia due to COVID-19 virus: Code(s): U07.1 - COVID-19; J12.82 - Pneumonia due to coronavirus disease 2019 Status: Acute Assessment and Plan: Patient positive for COVID-19 on 09/18/2020. Patient has NOT received a COVID vaccine -patient has completed a 10 day course of dexamethasone and remdesivir -patient received tocilizumab on 09/24/2020 -continue droplet, airborne and contact isolation/precautions -inflammatory markers are elevated, will continue to trend (3) KATERYNA (acute kidney injury): Code(s): N17.9 - Acute kidney failure, unspecified Status: Acute Assessment and Plan: Patient admitted with acute kidney injury, has resolved since then, creatinine has been stable patient is being diuresed (4) Peripheral arterial disease: Code(s): I73.9 - Peripheral vascular disease, unspecified Status: Acute Assessment and Plan: Ischemia of the left hand. -according the bedside RN Left hand was cold and the left radial artery was not palpable between the night of 09/26/2020 and 09/27/2020 -patient was started on infusions - 09/27/2020: . Decreased pressures in left ulnar artery and left finger, consistent with arterial occlusive disease -a transferred to [facility] has been initiated, patient has been accepted and awaiting bed placement. I spoke to clearing house clerk at [facility] and they do not have any record of this patient at this time. -today I did not feel any difference between left versus right hand. Left radial pulse was good and both hands were equally warm and had similar color, cap refill is adequate in left hand. left ulnar pulse definitely weaker than right but is easily palpable and dopplerable -I discussed with cardiology in the recommend continue anticoagulation and switching to p.o. anticoagulation at this time. they would like to do SHAQUILLE but considering patient respiratory status would defer at this time - patient has been transitioned from heparin infusion to Eliquis (5) CHF (congestive heart failure): Code(s): I50.9 - Heart failure, unspecified Status: Acute Assessment and Plan: ECHO showed diastolic dysfunction 1. Complete two-dimensional, color flow and Doppler transthoracic echocardiogram is performed. 2. Left ventricular chamber dimension is normal. 3. Left ventricular systolic function is normal, estimated at 55-60%. 4. There is mildly increased left ventricular wall thickness. 5. The left ventricular diastolic function is grade I diastolic dysfunction. 6. E/e' 12 is mildly elevated. 7. There is mild to moderate aortic valve regurgitation. 8. The mitral valve has mildly calcified annulus. 9. No pulmonary hypertension, estimated pulmonary arterial systolic pressure is 29 mmHg. 10. The aortic root size at the sinus of Valsalva is borderline dilated at 4.0 cm.. continue Lasix again today (6) DVT prophylaxis: Code(s): Z29.9 - Encounter for prophylactic measures, unspecified Status: Acute Assessment and Plan: DVT prophylaxis: Eliquis (7) Dysphagia: Code(s): R13.10 - Dysphagia, unspecified Status: Acute Assessment and Plan: patient had episode where he coughed after eating and desatted I consulted speech pathology who evaluated the patient patient's diet has been modifie
[2020-10-04] MEDS: ACETAMINOPHEN 325 MG TABLET 650 MG PO (20:42)
[2020-10-05] VITALS (22 sets, daily range): BP systolic 94–107; BP diastolic 59–75; PULSE 82–104; RESP 15–26; TEMP 36.4–37.1; O2SAT 92–99
[2020-10-05] MEDS: ALBUTEROL SULFATE NEB 2.5 MG/0.5 ML INH INHALATION ×4 (02:53→21:01)
[2020-10-05] MEDS: IPRATROPIUM BR 0.02% INH SOLN 0.5 MG/2.5 ML VIAL INHALATION ×4 (02:53→21:01)
[2020-10-05 04:52] LABS: Hematocrit 41.5 % (42.0-52.0); Hemoglobin 13.1 g/dL (14.0-18.0); Mean Corpuscular HGB Conc 31.6 g/dl (32-36); Mean Corpuscular Hemoglobin 31.6 pg (26-34); Mean Platelet Volume 10.3 fl (7.4-10.4); Platelet Count Result 209 k/mm3 (150-375); Red Blood Count 4.15 M/mm3 (4.6-6.20); Red Cell Distribution Width 13.1 % (11.5-14.5); White Blood Count 14.3 K/mm3 (4.5-10.0)
[2020-10-05 05:10] LABS: Alanine Aminotransferase 21 U/L (4-50); Albumin Level 2.9 g/dL (3.5-5.1); Alkaline Phosphatase 73 U/L (38-126); Anion Gap 4 mmol/L (8-16); Aspartate Amino Transferase 18 U/L (17-59); Bilirubin,Total 0.9 mg/dL (0.2-1.3); Blood Urea Nitrogen 73 mg/dL (9-20); Calcium 8.9 mg/dL (8.4-10.2); Carbon Dioxide 33 mmol/L (22-30); Chloride 103 mmol/L (98-107); Estimated CRCL calculation 27 ml/min; Estimated Glomerular Filt Rate 42; Glucose 102 mg/dL (65-110); Magnesium 2.3 mg/dL (1.6-2.3); Potassium 4.3 mmol/L (3.4-5.0); Sodium 140 mmol/L (137-145)
[2020-10-05 05:13] LABS: NT Pro B Type Natriuretic Pept 2260 pg/mL (5-100)
--- NOTE | 2020-10-05 06:05 | P.CDI_ITS ---
CDI Query Clarification Request -CHF, unspecified has been documented - ECHO showed diastolic dysfunction has been documented -10/05 BNP 2260 -Lasix 40mg IV given 09/25, 09/26, 09/27, 10/02,10/03 and 10/04 Please further specify type and acuity of CHF: * Acute *Systolic * Chronic *Diastolic * Acute on chronic *Both systolic and diastolic * Unable to determine *Unable to determine
--- NOTE | 2020-10-05 06:05 | WPDCDIQUERY2 ---
CDI Query Clarification Request -CHF, unspecified has been documented - ECHO showed diastolic dysfunction has been documented -10/05 BNP 2260 -Lasix 40mg IV given 09/25, 09/26, 09/27, 10/02,10/03 and 10/04 Please further specify type and acuity of CHF: Acute *Systolic Chronic *Diastolic Acute on chronic *Both systolic and diastolic Unable to determine *Unable to determine
[2020-10-05] MEDS: SALINE LOCK FLUSH 10 ML IV PUSH ×3 (07:56→22:29)
[2020-10-05] MEDS: MIDODRINE HCL 2.5 MG TABLET 5 MG PO ×3 (07:56→17:17)
[2020-10-05] MEDS: APIXABAN 5 MG TABLET PO ×2 (07:56→22:29)
[2020-10-05] MEDS: BUDESONIDE RESPULE NEB 0.5 MG/2 ML AMP INHALATION ×2 (10:01→21:01)
--- NOTE | 2020-10-05 12:28 | PCDIET ---
Nutrition Follow-Up Complete: Nutrition Diagnosis: Suboptimal oral intake related to COVID as evidenced by varying intakes since admission. Nutrition Goal: Patient to consume 50% of meals/supplements or greater. Goal in progress. Patient consuming 50-60% of meals on pureed diet and taking Ensure Clear which is being provided with meals. Last recorded weight is 56 kg. Bowel Motility: Last documented BM on 10/04/20 x 1. Labs Reviewed: WBC (14.3), RBC (4.15), Hgb (13.1), Hct (41.5), BUN (73), Cr (1.6), BNP (2260) Meds Noted: Albuterol, Pulmicort, Atrovent, Proamatine Additional Notes: No documented skin breakdown. Will continue to monitor with same goal. Nutrition Monitoring and Evaluation: Follow up every 3 days.
--- NOTE | 2020-10-05 14:53 | WPDINTPN ---
Progress Note: A&P Assessment and Plan (1) Acute respiratory failure with hypoxia: Code(s): J96.01 - Acute respiratory failure with hypoxia Status: Acute Assessment and Plan: Patient with acute respiratory failure with increasing oxygen requirement, likely secondary to COVID pneumonia Off BiPAP and now on Airvo. 70% and 60 L flow -chest x-ray shows diffuse bilateral airspace disease with no significant changes to prior chest x-ray -ABGs reviewed, much improved -continue bronchodilators along with Pulmicort - continue Lasix -patient is being evaluated by speech for swallowing (2) Pneumonia due to COVID-19 virus: Code(s): U07.1 - COVID-19; J12.82 - Pneumonia due to coronavirus disease 2019 Status: Acute Assessment and Plan: Patient positive for COVID-19 on 09/18/2020. Patient has NOT received a COVID vaccine -patient has completed a 10 day course of dexamethasone and remdesivir -patient received tocilizumab on 09/24/2020 -continue droplet, airborne and contact isolation/precautions -inflammatory markers are elevated, will continue to trend (3) KATERYNA (acute kidney injury): Code(s): N17.9 - Acute kidney failure, unspecified Status: Acute Assessment and Plan: Patient admitted with acute kidney injury, has resolved since then, creatinine has been stable (4) Peripheral arterial disease: Code(s): I73.9 - Peripheral vascular disease, unspecified Status: Acute Assessment and Plan: Ischemia of the left hand. -according the bedside RN Left hand was cold and the left radial artery was not palpable between the night of 09/26/2020 and 09/27/2020 -patient was started on infusions - 09/27/2020: . Decreased pressures in left ulnar artery and left finger, consistent with arterial occlusive disease -a transferred to [facility] has been initiated, patient has been accepted and awaiting bed placement. I spoke to laborer powerhouse at [facility] and they do not have any record of this patient at this time. -today I did not feel any difference between left versus right hand. Left radial pulse was good and both hands were equally warm and had similar color, cap refill is adequate in left hand. left ulnar pulse definitely weaker than right but is easily palpable and dopplerable -anticoagulation switched to Eliquis. -Cardiology would like to do SHAQUILLE but considering patient respiratory status would defer at this time (5) CHF (congestive heart failure): Code(s): I50.9 - Heart failure, unspecified Status: Acute Assessment and Plan: ECHO showed diastolic dysfunction 1. Complete two-dimensional, color flow and Doppler transthoracic echocardiogram is performed. 2. Left ventricular chamber dimension is normal. 3. Left ventricular systolic function is normal, estimated at 55-60%. 4. There is mildly increased left ventricular wall thickness. 5. The left ventricular diastolic function is grade I diastolic dysfunction. 6. E/e' 12 is mildly elevated. 7. There is mild to moderate aortic valve regurgitation. 8. The mitral valve has mildly calcified annulus. 9. No pulmonary hypertension, estimated pulmonary arterial systolic pressure is 29 mmHg. 10. The aortic root size at the sinus of Valsalva is borderline dilated at 4.0 cm.. continue Lasix again today (6) DVT prophylaxis: Code(s): Z29.9 - Encounter for prophylactic measures, unspecified Status: Acute Assessment and Plan: DVT prophylaxis: Eliquis (7) Dysphagia: Code(s): R13.10 - Dysphagia, unspecified Status: Acute Assessment and Plan: patient had episode where he coughed after eating and desatted I consulted speech pathology who evaluated the patient patient's diet has been modified as per recommendations (8) Leukocytosis: Code(s): D72.829 - Elevated white blood cell count, unspecified Status: Acute Assessment a
[2020-10-06] VITALS (19 sets, daily range): BP systolic 95–128; BP diastolic 54–70; PULSE 75–112; RESP 16–26; TEMP 36.5–36.8; O2SAT 88–100
[2020-10-06] MEDS: IPRATROPIUM BR 0.02% INH SOLN 0.5 MG/2.5 ML VIAL INHALATION ×4 (03:50→20:07)
[2020-10-06] MEDS: ALBUTEROL SULFATE NEB 2.5 MG/0.5 ML INH INHALATION ×4 (03:50→20:07)
[2020-10-06 04:42] LABS: Basophils Absolute Auto 0.1 K/mm3 (0.0-0.1); Basophils Percent Auto 0.5 % (0.2-1.2); Eosinophils Absolute Auto 0.3 K/mm3 (0-0.3); Eosinophils Percent Auto 2.5 % (0-4.4); Hemoglobin 13.1 g/dL (14.0-18.0); Immature Granulocyte Absolute 0.07 K/mm3 (0.00-0.031); Immature Granulocyte Percent A 0.5 % (0-0.5); Lymphocytes Absolute Auto 3.52 K/mm3 (0.9-3.2); Mean Platelet Volume 10.3 fl (7.4-10.4); Monocytes Absolute Auto 0.9 K/mm3 (0.1-0.6); Monocytes Percent Auto 7.2 % (2.6-8.5); Neutrophils Absolute Auto 8.1 K/mm3 (1.3-6.7); Neutrophils Percent Auto 62.3 % (45.5-73.1); Platelet Count Result 210 k/mm3 (150-375); Red Cell Distribution Width 13.2 % (11.5-14.5)
[2020-10-06 04:59] LABS: Alanine Aminotransferase 19 U/L (4-50); Albumin Level 3.1 g/dL (3.5-5.1); Alkaline Phosphatase 75 U/L (38-126); Anion Gap 3 mmol/L (8-16); Aspartate Amino Transferase 17 U/L (17-59); Bilirubin,Total 0.6 mg/dL (0.2-1.3); Blood Urea Nitrogen 57 mg/dL (9-20); Calcium 8.6 mg/dL (8.4-10.2); Carbon Dioxide 36 mmol/L (22-30); Chloride 97 mmol/L (98-107); Estimated CRCL calculation 30 ml/min; Estimated Glomerular Filt Rate 49; Glucose 98 mg/dL (65-110); Magnesium 2.3 mg/dL (1.6-2.3); Potassium 3.9 mmol/L (3.4-5.0); Sodium 136 mmol/L (137-145)
[2020-10-06] MEDS: MIDODRINE HCL 2.5 MG TABLET 5 MG PO ×3 (08:56→16:56)
[2020-10-06] MEDS: APIXABAN 5 MG TABLET PO ×2 (08:56→20:41)
[2020-10-06] MEDS: SALINE LOCK FLUSH 10 ML IV PUSH ×3 (08:57→20:50)
[2020-10-06] MEDS: BUDESONIDE RESPULE NEB 0.5 MG/2 ML AMP INHALATION ×2 (08:58→20:07)
[2020-10-06] MEDS: DOCUSATE SODIUM 100 MG CAPSULE PO (16:56)
--- NOTE | 2020-10-06 19:00 | PM.IMPN ---
Progress Note: A&P Assessment and Plan (1) Acute respiratory failure with hypoxia: Code(s): J96.01 - Acute respiratory failure with hypoxia Status: Acute Assessment and Plan: Patient with acute respiratory failure with increasing oxygen requirement, likely secondary to COVID pneumonia Off BiPAP and now on Airvo. 70% and 60 L flow -chest x-ray shows diffuse bilateral airspace disease with no significant changes to prior chest x-ray -ABGs reviewed, much improved -continue bronchodilators along with Pulmicort - continue Lasix -patient is being evaluated by speech for swallowing 10/06/20 19:00 patient with COVID-19 pneumonia requiring high-flow oxygen patient had been in ICU for 17 days and patient was transferred to IMU on 10/05, currently patient is on Airvo patient is very hard of hearing, states feeling better but complains constipation I spoke with the patient's name with patient Marlena patient has completed course of dexamethasone and remdisivir, will continue to monitor and further recommendation to follow. (2) Pneumonia due to COVID-19 virus: Code(s): U07.1 - COVID-19; J12.82 - Pneumonia due to coronavirus disease 2019 Status: Acute Assessment and Plan: Patient positive for COVID-19 on 09/18/2020. Patient has NOT received a COVID vaccine -patient has completed a 10 day course of dexamethasone and remdesivir -patient received tocilizumab on 09/24/2020 -continue droplet, airborne and contact isolation/precautions -inflammatory markers are elevated, will continue to trend (3) KATERYNA (acute kidney injury): Code(s): N17.9 - Acute kidney failure, unspecified Status: Acute Assessment and Plan: Patient admitted with acute kidney injury, has resolved since then, creatinine has been stable (4) Peripheral arterial disease: Code(s): I73.9 - Peripheral vascular disease, unspecified Status: Acute Assessment and Plan: Ischemia of the left hand. -according the bedside RN Left hand was cold and the left radial artery was not palpable between the night of 09/26/2020 and 09/27/2020 -patient was started on infusions - 09/27/2020: . Decreased pressures in left ulnar artery and left finger, consistent with arterial occlusive disease -a transferred to [facility] has been initiated, patient has been accepted and awaiting bed placement. I spoke to housecleaner floor at [facility] and they do not have any record of this patient at this time. -today I did not feel any difference between left versus right hand. Left radial pulse was good and both hands were equally warm and had similar color, cap refill is adequate in left hand. left ulnar pulse definitely weaker than right but is easily palpable and dopplerable -anticoagulation switched to Eliquis. -Cardiology would like to do SHAQUILLE but considering patient respiratory status would defer at this time (5) CHF (congestive heart failure): Code(s): I50.9 - Heart failure, unspecified Status: Acute Assessment and Plan: ECHO showed diastolic dysfunction 1. Complete two-dimensional, color flow and Doppler transthoracic echocardiogram is performed. 2. Left ventricular chamber dimension is normal. 3. Left ventricular systolic function is normal, estimated at 55-60%. 4. There is mildly increased left ventricular wall thickness. 5. The left ventricular diastolic function is grade I diastolic dysfunction. 6. E/e' 12 is mildly elevated. 7. There is mild to moderate aortic valve regurgitation. 8. The mitral valve has mildly calcified annulus. 9. No pulmonary hypertension, estimated pulmonary arterial systolic pressure is 29 mmHg. 10. The aortic root size at the sinus of Valsalva is borderline dilated at 4.0 cm.. continue Lasix again today (6) DVT prophylaxis: Code(s): Z29.9 - Encounter for prophylactic measures, unspecified Status: Acute Assessment and Plan: DVT prop
[2020-10-07] VITALS (24 sets, daily range): BP systolic 100–120; BP diastolic 51–69; PULSE 68–103; RESP 16–22; TEMP 36.3–36.9; O2SAT 92–98
[2020-10-07] MEDS: ALBUTEROL SULFATE NEB 2.5 MG/0.5 ML INH INHALATION ×4 (01:29→20:37)
[2020-10-07] MEDS: IPRATROPIUM BR 0.02% INH SOLN 0.5 MG/2.5 ML VIAL INHALATION ×4 (01:29→20:37)
[2020-10-07 05:07] LABS: Hematocrit 36.8 % (42.0-52.0); Hemoglobin 12.1 g/dL (14.0-18.0); Mean Corpuscular HGB Conc 32.9 g/dl (32-36); Mean Corpuscular Hemoglobin 31.7 pg (26-34); Mean Corpuscular Volume 96.3 fl (80-100); Mean Platelet Volume 10.2 fl (7.4-10.4); Platelet Count Result 193 k/mm3 (150-375); Red Blood Count 3.82 M/mm3 (4.6-6.20); Red Cell Distribution Width 13.1 % (11.5-14.5); White Blood Count 11.7 K/mm3 (4.5-10.0)
[2020-10-07 06:05] LABS: Chloride 105 mmol/L (98-107); Potassium 3.8 mmol/L (3.4-5.0); Sodium 137 mmol/L (137-145)
[2020-10-07 06:06] LABS: Alanine Aminotransferase 17 U/L (4-50); Albumin Level 2.8 g/dL (3.5-5.1); Alkaline Phosphatase 72 U/L (38-126); Anion Gap 1 mmol/L (8-16); Aspartate Amino Transferase 17 U/L (17-59); Bilirubin,Total 0.6 mg/dL (0.2-1.3); Blood Urea Nitrogen 42 mg/dL (9-20); Calcium 8.5 mg/dL (8.4-10.2); Carbon Dioxide 31 mmol/L (22-30); Estimated CRCL calculation 38 ml/min; Estimated Glomerular Filt Rate > 60; Glucose 100 mg/dL (65-110); Magnesium 2.2 mg/dL (1.6-2.3); Total Protein 5.3 g/dL (6.3-8.2)
[2020-10-07] MEDS: SALINE LOCK FLUSH 10 ML IV PUSH ×3 (07:36→20:54)
[2020-10-07] MEDS: BUDESONIDE RESPULE NEB 0.5 MG/2 ML AMP INHALATION ×2 (08:14→20:37)
[2020-10-07] MEDS: DOCUSATE SODIUM 100 MG CAPSULE PO ×2 (09:41→20:54)
[2020-10-07] MEDS: APIXABAN 5 MG TABLET PO ×2 (09:41→20:54)
[2020-10-07] MEDS: MIDODRINE HCL 2.5 MG TABLET 5 MG PO ×3 (09:41→18:00)
--- NOTE | 2020-10-07 13:37 | PCDIET ---
Nutrition Follow-Up Complete: Nutrition Diagnosis: Suboptimal oral intake related to COVID as evidenced by varying intakes since admission. Nutrition Goal: Patient to consume 50% of meals/supplements or greater. Goal in progress. Patient consumed around 50% of meals since last review on pureed diet with Ensure Clear TID. Last recorded weight is 56.1 kg which is stable with last review. Bowel Motility: Last documented BM on 10/04/20 x 1. Patient receiving Colace. Labs Reviewed: WBC (11.7), RBC (3.82), Hgb (12.1), Hct (36.8), BUN (42), Alb (2.8) Meds Noted: Albuterol, Atrovent, Pulmicort, Colace, Proamatine Additional Notes: No documented skin breakdown. Nutrition Monitoring and Evaluation: Follow up every 5 days.
--- NOTE | 2020-10-07 16:44 | PM.IMPN ---
Progress Note: A&P Assessment and Plan (1) Acute respiratory failure with hypoxia: Code(s): J96.01 - Acute respiratory failure with hypoxia Status: Acute Assessment and Plan: Patient with acute respiratory failure with increasing oxygen requirement, likely secondary to COVID pneumonia Off BiPAP and now on Airvo. 70% and 60 L flow -chest x-ray shows diffuse bilateral airspace disease with no significant changes to prior chest x-ray -ABGs reviewed, much improved -continue bronchodilators along with Pulmicort - continue Lasix -patient is being evaluated by speech for swallowing 10/07/20 16:44 patient with COVID-19 pneumonia requiring high-flow oxygen patient had been in ICU for 17 days and patient was transferred to IMU on 10/05, currently patient is on Airvo patient is very hard of hearing, states feeling better but complains constipation I spoke with the patient's name with patient Marlena patient has completed course of dexamethasone and remdisivir, will continue to monitor and further recommendation to follow. 10/07 patient remains clinically stable, his oxygen requirement is trending down, yesterday patient was able to sit on the side of the bed and was able to ambulate some, again todaypatient will work with physical therapy, will continue to monitor as his oxygen requirement improves further recommendation to follow (2) Pneumonia due to COVID-19 virus: Code(s): U07.1 - COVID-19; J12.82 - Pneumonia due to coronavirus disease 2019 Status: Acute Assessment and Plan: Patient positive for COVID-19 on 09/18/2020. Patient has NOT received a COVID vaccine -patient has completed a 10 day course of dexamethasone and remdesivir -patient received tocilizumab on 09/24/2020 -continue droplet, airborne and contact isolation/precautions -inflammatory markers are elevated, will continue to trend (3) KATERYNA (acute kidney injury): Code(s): N17.9 - Acute kidney failure, unspecified Status: Acute Assessment and Plan: Patient admitted with acute kidney injury, has resolved since then, creatinine has been stable (4) Peripheral arterial disease: Code(s): I73.9 - Peripheral vascular disease, unspecified Status: Acute Assessment and Plan: Ischemia of the left hand. -according the bedside RN Left hand was cold and the left radial artery was not palpable between the night of 09/26/2020 and 09/27/2020 -patient was started on infusions - 09/27/2020: . Decreased pressures in left ulnar artery and left finger, consistent with arterial occlusive disease -a transferred to [facility] has been initiated, patient has been accepted and awaiting bed placement. I spoke to household chores at [facility] and they do not have any record of this patient at this time. -today I did not feel any difference between left versus right hand. Left radial pulse was good and both hands were equally warm and had similar color, cap refill is adequate in left hand. left ulnar pulse definitely weaker than right but is easily palpable and dopplerable -anticoagulation switched to Eliquis. -Cardiology would like to do SHAQUILLE but considering patient respiratory status would defer at this time (5) CHF (congestive heart failure): Code(s): I50.9 - Heart failure, unspecified Status: Acute Assessment and Plan: ECHO showed diastolic dysfunction 1. Complete two-dimensional, color flow and Doppler transthoracic echocardiogram is performed. 2. Left ventricular chamber dimension is normal. 3. Left ventricular systolic function is normal, estimated at 55-60%. 4. There is mildly increased left ventricular wall thickness. 5. The left ventricular diastolic function is grade I diastolic dysfunction. 6. E/e' 12 is mildly elevated. 7. There is mild to moderate aortic valve regurgitation. 8. The mitral valve has mildly calcified annulus. 9. No pulmonary hypertension, estimated p
[2020-10-08] VITALS (21 sets, daily range): BP systolic 83–120; BP diastolic 49–78; PULSE 71–137; RESP 18–30; TEMP 36.6–36.8; O2SAT 90–100
[2020-10-08] MEDS: IPRATROPIUM BR 0.02% INH SOLN 0.5 MG/2.5 ML VIAL INHALATION ×4 (02:13→21:02)
[2020-10-08] MEDS: ALBUTEROL SULFATE NEB 2.5 MG/0.5 ML INH INHALATION ×4 (02:13→21:00)
[2020-10-08 05:25] LABS: Hematocrit 35.8 % (42.0-52.0); Hemoglobin 11.5 g/dL (14.0-18.0); Mean Corpuscular HGB Conc 32.1 g/dl (32-36); Mean Corpuscular Hemoglobin 31.6 pg (26-34); Mean Corpuscular Volume 98.4 fl (80-100); Mean Platelet Volume 10.6 fl (7.4-10.4); Platelet Count Result 184 k/mm3 (150-375); Red Blood Count 3.64 M/mm3 (4.6-6.20); Red Cell Distribution Width 13.2 % (11.5-14.5); White Blood Count 10.4 K/mm3 (4.5-10.0)
[2020-10-08 05:47] LABS: Alanine Aminotransferase 15 U/L (4-50); Albumin Level 2.6 g/dL (3.5-5.1); Alkaline Phosphatase 68 U/L (38-126); Anion Gap 3 mmol/L (8-16); Aspartate Amino Transferase 15 U/L (17-59); Bilirubin,Total 0.6 mg/dL (0.2-1.3); Blood Urea Nitrogen 38 mg/dL (9-20); Calcium 8.5 mg/dL (8.4-10.2); Carbon Dioxide 32 mmol/L (22-30); Chloride 99 mmol/L (98-107); Estimated CRCL calculation 38 ml/min; Estimated Glomerular Filt Rate > 60; Glucose 90 mg/dL (65-110); Potassium 3.9 mmol/L (3.4-5.0); Sodium 134 mmol/L (137-145)
[2020-10-08] MEDS: SALINE LOCK FLUSH 10 ML IV PUSH ×3 (07:00→21:01)
[2020-10-08] MEDS: BUDESONIDE RESPULE NEB 0.5 MG/2 ML AMP INHALATION ×2 (08:50→21:02)
[2020-10-08] MEDS: MIDODRINE HCL 2.5 MG TABLET 5 MG PO ×3 (08:59→16:44)
[2020-10-08] MEDS: APIXABAN 5 MG TABLET PO ×2 (08:59→20:55)
[2020-10-08] MEDS: DOCUSATE SODIUM 100 MG CAPSULE PO (08:59)
--- NOTE | 2020-10-08 16:53 | PM.IMPN ---
Progress Note: A&P Assessment and Plan (1) Acute respiratory failure with hypoxia: Code(s): J96.01 - Acute respiratory failure with hypoxia Status: Acute Assessment and Plan: 10/08 patient remains clinically stable, his oxygen requirement is trending down, now on hi-flow cannula (2) Pneumonia due to COVID-19 virus: Code(s): U07.1 - COVID-19; J12.82 - Pneumonia due to coronavirus disease 2019 Status: Acute Assessment and Plan: Patient positive for COVID-19 on 09/18/2020. Patient has NOT received a COVID vaccine -patient has completed a 10 day course of dexamethasone and remdesivir -patient received tocilizumab on 09/24/2020 -discontinue droplet, airborne and contact isolation/precautions as he tested POSITIVE 09/18/2020 and had no fever for > 24 hours (3) KATERYNA (acute kidney injury): Code(s): N17.9 - Acute kidney failure, unspecified Status: Acute Assessment and Plan: resolved (4) Peripheral arterial disease: Code(s): I73.9 - Peripheral vascular disease, unspecified Status: Acute Assessment and Plan: Currently w/o sx's (5) CHF (congestive heart failure): Qualifiers: Heart failure type: unspecified Heart failure chronicity: chronic Qualified Code(s): I50.9 - Heart failure, unspecified Code(s): I50.9 - Heart failure, unspecified Status: Acute Assessment and Plan: Clinically stable ECHO showed diastolic dysfunction 1. Complete two-dimensional, color flow and Doppler transthoracic echocardiogram is performed. 2. Left ventricular chamber dimension is normal. 3. Left ventricular systolic function is normal, estimated at 55-60%. 4. There is mildly increased left ventricular wall thickness. 5. The left ventricular diastolic function is grade I diastolic dysfunction. 6. E/e' 12 is mildly elevated. 7. There is mild to moderate aortic valve regurgitation. 8. The mitral valve has mildly calcified annulus. 9. No pulmonary hypertension, estimated pulmonary arterial systolic pressure is 29 mmHg. 10. The aortic root size at the sinus of Valsalva is borderline dilated at 4.0 cm.. continue Lasix again today (6) DVT prophylaxis: Code(s): Z29.9 - Encounter for prophylactic measures, unspecified Status: Acute Assessment and Plan: DVT prophylaxis: Eliquis (7) Dysphagia: Qualifiers: Dysphagia type: unspecified Qualified Code(s): R13.10 - Dysphagia, unspecified Code(s): R13.10 - Dysphagia, unspecified Status: Acute Assessment and Plan: Tolerated diet (8) Leukocytosis: Qualifiers: Leukocytosis type: unspecified Qualified Code(s): D72.829 - Elevated white blood cell count, unspecified Code(s): D72.829 - Elevated white blood cell count, unspecified Status: Acute Assessment and Plan: resolving, 10/08 wbc 10.4 Subjective Date/time seen: 10/08/20 16:53 Interval history: Admitted for COVID-19 pneumonia. 10/08 visit: Tired. Generalized body aches. GORDON with any exertion. No dysgeusia or anosmia. No cp or sob. Constipated. No c/o. No bleeding. Review of Systems Review of Systems: All systems reviewed & are unremarkable except as noted in HPI and below Exam Narrative: HEENT: PERRL, sclerae nonicteric, pharyngeal mucosa pink and intact NECK: No JVD CHEST: Coarse BS. Normal effort. HEART: NL S1/S2, regular, no murmur ABDOMEN: BS+, soft, nontender, no mass, no bruits EXTREMITIES: No cyanosis, edema, or clubbing NEUROLOGIC: CN intact and symmetric to inspection. MUSCULOSKELETAL: Tone and strength symmetric. PSYCH: Alert. Oriented to person, place, and time. Objective Data Vital Signs Vital Signs: Vital Signs - 24 hr 10/07/20 18:00 10/07/20 20:00 10/07/20 20:37 Temperature 98.1 F Pulse Rate 90 100 95 Respiratory Rate 18 20 Blood Pressure 100/60 Pulse Oximetry 95 10/07/20 20:38 10/07/20 20
[2020-10-08] MEDS: SENNA/DOCUSATE SODIUM TABLET 1 TAB PO (20:55)
[2020-10-09] VITALS (21 sets, daily range): BP systolic 89–116; BP diastolic 45–65; PULSE 80–116; RESP 16–20; TEMP 36.2–36.8; O2SAT 89–99
[2020-10-09] MEDS: IPRATROPIUM BR 0.02% INH SOLN 0.5 MG/2.5 ML VIAL INHALATION ×4 (03:06→22:10)
[2020-10-09] MEDS: ALBUTEROL SULFATE NEB 2.5 MG/0.5 ML INH INHALATION ×3 (03:06→15:37)
[2020-10-09] MEDS: BUDESONIDE RESPULE NEB 0.5 MG/2 ML AMP INHALATION ×2 (09:05→22:10)
--- NOTE | 2020-10-09 09:14 | PM.IMPN ---
Progress Note: A&P Assessment and Plan (1) Acute respiratory failure with hypoxia: Code(s): J96.01 - Acute respiratory failure with hypoxia Status: Acute Assessment and Plan: 10/08 patient remains clinically stable, his oxygen requirement is trending down, now nasal cannula at 5 LPM (2) Pneumonia due to COVID-19 virus: Code(s): U07.1 - COVID-19; J12.82 - Pneumonia due to coronavirus disease 2019 Status: Acute Assessment and Plan: Patient positive for COVID-19 on 09/18/2020. Patient has NOT received a COVID vaccine -patient has completed a 10 day course of dexamethasone and remdesivir -patient received tocilizumab on 09/24/2020 -10/08 discontinued droplet, airborne and contact isolation/precautions as he tested POSITIVE 09/18/2020 and had no fever for > 24 hours 10/09 to medical floor and should be ready for discharge to SNF as soon as bed is available (3) KATERYNA (acute kidney injury): Code(s): N17.9 - Acute kidney failure, unspecified Status: Acute Assessment and Plan: resolved (4) Peripheral arterial disease: Code(s): I73.9 - Peripheral vascular disease, unspecified Status: Acute Assessment and Plan: Currently w/o sx's (5) CHF (congestive heart failure): Qualifiers: Heart failure type: unspecified Heart failure chronicity: chronic Qualified Code(s): I50.9 - Heart failure, unspecified Code(s): I50.9 - Heart failure, unspecified Status: Acute Assessment and Plan: Clinically stable ECHO showed diastolic dysfunction 1. Complete two-dimensional, color flow and Doppler transthoracic echocardiogram is performed. 2. Left ventricular chamber dimension is normal. 3. Left ventricular systolic function is normal, estimated at 55-60%. 4. There is mildly increased left ventricular wall thickness. 5. The left ventricular diastolic function is grade I diastolic dysfunction. 6. E/e' 12 is mildly elevated. 7. There is mild to moderate aortic valve regurgitation. 8. The mitral valve has mildly calcified annulus. 9. No pulmonary hypertension, estimated pulmonary arterial systolic pressure is 29 mmHg. 10. The aortic root size at the sinus of Valsalva is borderline dilated at 4.0 cm.. continue Lasix again today (6) DVT prophylaxis: Code(s): Z29.9 - Encounter for prophylactic measures, unspecified Status: Acute Assessment and Plan: DVT prophylaxis: Eliquis (7) Dysphagia: Qualifiers: Dysphagia type: unspecified Qualified Code(s): R13.10 - Dysphagia, unspecified Code(s): R13.10 - Dysphagia, unspecified Status: Acute Assessment and Plan: Tolerated diet (8) Leukocytosis: Qualifiers: Leukocytosis type: unspecified Qualified Code(s): D72.829 - Elevated white blood cell count, unspecified Code(s): D72.829 - Elevated white blood cell count, unspecified Status: Acute Assessment and Plan: resolving, 10/08 wbc 10.4 Subjective Date/time seen: 10/09/20 09:14 Interval history: Admitted with COVID-19 pneumonia, respiratory failure. 10/09: Tolerating diet. No dysgeusia or anosmia. GORDON. Constipation. Generalized aches. No other c/o pain. Review of Systems Review of Systems: All systems reviewed & are unremarkable except as noted in HPI and below Exam Narrative: HEENT: PERRL, sclerae nonicteric, pharyngeal mucosa pink and intact NECK: No JVD CHEST: Clear to auscultation. Normal effort. HEART: NL S1/S2, regular, no murmur ABDOMEN: BS+, soft, nontender, no mass, no bruits EXTREMITIES: No cyanosis, edema, or clubbing NEUROLOGIC: CN intact and symmetric to inspection, except MODERATELY SEVERE [place] MUSCULOSKELETAL: Tone and strength symmetric. PSYCH: Alert. Oriented to person, place, and time. Objective Data Vital Signs Vital Signs: Vital Signs - 24 hr 10/08/20 11:30 10/08/20 11:37 10/08/20 12:00 Temperature 98.3 F Pulse
[2020-10-09] MEDS: MIDODRINE HCL 2.5 MG TABLET 5 MG PO ×3 (09:24→18:58)
[2020-10-09] MEDS: APIXABAN 5 MG TABLET PO ×2 (09:24→21:18)
[2020-10-09] MEDS: SALINE LOCK FLUSH 10 ML IV PUSH ×2 (09:24→14:09)
[2020-10-09] MEDS: BISACODYL 5 MG TABLET EC PO (14:06)
[2020-10-09] MEDS: SENNA/DOCUSATE SODIUM TABLET 1 TAB PO (21:19)
[2020-10-10] VITALS (19 sets, daily range): BP systolic 100–134; BP diastolic 54–75; PULSE 63–99; RESP 14–22; TEMP 35.8–36.6; O2SAT 92–97
--- NOTE | 2020-10-10 00:10 | PC.NURSE ---
This patient, Negrito Valdez, was admitted to [facility] Surg Room 332-01 @23:45. Patient/family oriented to hospital policies and general routines including ID bracelet, bed and alarms, visiting hours, pain management, procedures, bathroom and other care routines, personal items, smoking policy, room service/diet, and visiting hours. Information on how to activate the Rapid Response Team has been discussed. Patient/Family are encouraged to report perceived risks to care and to ask questions if they do not understand what they are told or what they should do.
--- NOTE | 2020-10-10 03:00 | PC.NURSE ---
This patient, Negrito Valdez, was transferred to [ [id number]] on 10/09/20 at 2355. Personal belongings sent with patient. Report given to [BEVERLY Durant]. Appropriate documentation sent with patient.
[2020-10-10] MEDS: IPRATROPIUM BR 0.02% INH SOLN 0.5 MG/2.5 ML VIAL INHALATION ×4 (03:14→20:17)
[2020-10-10 07:16] LABS: Hematocrit 34.8 % (42.0-52.0); Hemoglobin 11.1 g/dL (14.0-18.0); Mean Corpuscular HGB Conc 31.9 g/dl (32-36); Mean Corpuscular Hemoglobin 32.2 pg (26-34); Mean Corpuscular Volume 100.9 fl (80-100); Mean Platelet Volume 10.7 fl (7.4-10.4); Platelet Count Result 187 k/mm3 (150-375); Red Blood Count 3.45 M/mm3 (4.6-6.20); Red Cell Distribution Width 13.8 % (11.5-14.5); White Blood Count 9.1 K/mm3 (4.5-10.0)
[2020-10-10 07:24] LABS: Alanine Aminotransferase 17 U/L (4-50); Albumin Level 2.8 g/dL (3.5-5.1); Alkaline Phosphatase 64 U/L (38-126); Anion Gap 1 mmol/L (8-16); Aspartate Amino Transferase 19 U/L (17-59); Bilirubin,Total 0.7 mg/dL (0.2-1.3); Blood Urea Nitrogen 30 mg/dL (9-20); CRP < 0.5 mg/dL (<1.0); Calcium 8.4 mg/dL (8.4-10.2); Carbon Dioxide 33 mmol/L (22-30); Chloride 101 mmol/L (98-107); Estimated CRCL calculation 53 ml/min; Estimated Glomerular Filt Rate > 60; Glucose 83 mg/dL (65-110); Sodium 135 mmol/L (137-145)
[2020-10-10] MEDS: APIXABAN 5 MG TABLET PO ×2 (08:32→21:24)
[2020-10-10] MEDS: MIDODRINE HCL 2.5 MG TABLET 5 MG PO ×3 (08:33→18:28)
[2020-10-10] MEDS: BUDESONIDE RESPULE NEB 0.5 MG/2 ML AMP INHALATION ×2 (08:50→20:17)
--- NOTE | 2020-10-10 13:58 | PM.IMPN ---
Progress Note: A&P Assessment and Plan (1) Acute respiratory failure with hypoxia: Code(s): J96.01 - Acute respiratory failure with hypoxia Status: Acute Assessment and Plan: 10/08 patient remains clinically stable, his oxygen requirement is trending down, now nasal cannula at 5 LPM (2) Pneumonia due to COVID-19 virus: Code(s): U07.1 - COVID-19; J12.82 - Pneumonia due to coronavirus disease 2019 Status: Acute Assessment and Plan: Patient positive for COVID-19 on 09/18/2020. Patient has NOT received a COVID vaccine -patient has completed a 10 day course of dexamethasone and remdesivir -patient received tocilizumab on 09/24/2020 -10/08 discontinued droplet, airborne and contact isolation/precautions as he tested POSITIVE 09/18/2020 and had no fever for > 24 hours 10/09 to medical floor 10/10 awaiting placement (3) KATERYNA (acute kidney injury): Code(s): N17.9 - Acute kidney failure, unspecified Status: Acute Assessment and Plan: resolved (4) Peripheral arterial disease: Code(s): I73.9 - Peripheral vascular disease, unspecified Status: Acute Assessment and Plan: Currently w/o sx's (5) CHF (congestive heart failure): Qualifiers: Heart failure type: unspecified Heart failure chronicity: chronic Qualified Code(s): I50.9 - Heart failure, unspecified Code(s): I50.9 - Heart failure, unspecified Status: Acute Assessment and Plan: Clinically stable ECHO showed diastolic dysfunction 1. Complete two-dimensional, color flow and Doppler transthoracic echocardiogram is performed. 2. Left ventricular chamber dimension is normal. 3. Left ventricular systolic function is normal, estimated at 55-60%. 4. There is mildly increased left ventricular wall thickness. 5. The left ventricular diastolic function is grade I diastolic dysfunction. 6. E/e' 12 is mildly elevated. 7. There is mild to moderate aortic valve regurgitation. 8. The mitral valve has mildly calcified annulus. 9. No pulmonary hypertension, estimated pulmonary arterial systolic pressure is 29 mmHg. 10. The aortic root size at the sinus of Valsalva is borderline dilated at 4.0 cm.. continue Lasix again today (6) DVT prophylaxis: Code(s): Z29.9 - Encounter for prophylactic measures, unspecified Status: Acute Assessment and Plan: DVT prophylaxis: Eliquis (7) Dysphagia: Qualifiers: Dysphagia type: unspecified Qualified Code(s): R13.10 - Dysphagia, unspecified Code(s): R13.10 - Dysphagia, unspecified Status: Acute Assessment and Plan: Tolerated diet (8) Leukocytosis: Qualifiers: Leukocytosis type: unspecified Qualified Code(s): D72.829 - Elevated white blood cell count, unspecified Code(s): D72.829 - Elevated white blood cell count, unspecified Status: Acute Assessment and Plan: resolving, 10/08 wbc 10.4 Subjective Date/time seen: 10/10/20 13:58 Interval history: Admitted with COVID-19 pneumonia, respiratory failure. 10/10: Tolerating diet. No dysgeusia or anosmia. GORDON. Constipation. Generalized aches. No other c/o pain. Review of Systems Review of Systems: All systems reviewed & are unremarkable except as noted in HPI and below Exam Narrative: HEENT: PERRL, sclerae nonicteric, pharyngeal mucosa pink and intact NECK: No JVD CHEST: Clear to auscultation. Normal effort. HEART: NL S1/S2, regular, no murmur ABDOMEN: BS+, soft, nontender, no mass, no bruits EXTREMITIES: No cyanosis, edema, or clubbing NEUROLOGIC: CN intact and symmetric to inspection, except MODERATELY SEVERE [place] MUSCULOSKELETAL: Tone and strength symmetric. PSYCH: Alert. Oriented to person, place, and time. Objective Data Vital Signs Vital Signs: Vital Signs - 24 hr 10/09/20 14:00 10/09/20 15:38 10/09/20 15:47 Temperature Pulse Rate 85 92 91 Respiratory Rate 20 20 Blood Pr
[2020-10-10] MEDS: SENNA/DOCUSATE SODIUM TABLET 1 TAB PO (21:24)
[2020-10-11] VITALS (8 sets, daily range): BP systolic 117–119; BP diastolic 71–72; PULSE 70–93; RESP 14–20; TEMP 36.1–36.8; O2SAT 97–98
[2020-10-11] MEDS: IPRATROPIUM BR 0.02% INH SOLN 0.5 MG/2.5 ML VIAL INHALATION ×3 (02:43→20:29)
[2020-10-11] MEDS: BUDESONIDE RESPULE NEB 0.5 MG/2 ML AMP INHALATION ×2 (08:59→20:29)
[2020-10-11] MEDS: APIXABAN 5 MG TABLET PO (09:29)
[2020-10-11] MEDS: MIDODRINE HCL 2.5 MG TABLET 5 MG PO ×3 (09:29→17:12)
--- NOTE | 2020-10-11 10:03 | PM.DS ---
DS: Admitting Diagnosis Admitting Diagnosis COVID-19 pneumonia DS: Discharge Diagnosis Discharge Diagnosis (1) Acute respiratory failure with hypoxia: Code(s): J96.01 - Acute respiratory failure with hypoxia Status: Acute Assessment and Plan: 10/11 clinically stable on 5 LPM by NC (2) Pneumonia due to COVID-19 virus: Code(s): U07.1 - COVID-19; J12.82 - Pneumonia due to coronavirus disease 2019 Status: Acute Assessment and Plan: Patient positive for COVID-19 on 09/18/2020. Patient has NOT received a COVID vaccine -patient has completed a 10 day course of dexamethasone and remdesivir -patient received tocilizumab on 09/24/2020 -10/08 discontinued droplet, airborne and contact isolation/precautions as he tested POSITIVE 09/18/2020 and had no fever for > 24 hours 10/09 to medical floor 10/10 awaiting placement 10/11 discharge (3) KATERYNA (acute kidney injury): Code(s): N17.9 - Acute kidney failure, unspecified Status: Acute Assessment and Plan: resolved (4) Peripheral arterial disease: Code(s): I73.9 - Peripheral vascular disease, unspecified Status: Acute Assessment and Plan: Currently w/o sx's (5) CHF (congestive heart failure): Qualifiers: Heart failure chronicity: chronic Heart failure type: unspecified Qualified Code(s): I50.9 - Heart failure, unspecified Code(s): I50.9 - Heart failure, unspecified Status: Acute Assessment and Plan: Clinically stable ECHO showed diastolic dysfunction 1. Complete two-dimensional, color flow and Doppler transthoracic echocardiogram is performed. 2. Left ventricular chamber dimension is normal. 3. Left ventricular systolic function is normal, estimated at 55-60%. 4. There is mildly increased left ventricular wall thickness. 5. The left ventricular diastolic function is grade I diastolic dysfunction. 6. E/e' 12 is mildly elevated. 7. There is mild to moderate aortic valve regurgitation. 8. The mitral valve has mildly calcified annulus. 9. No pulmonary hypertension, estimated pulmonary arterial systolic pressure is 29 mmHg. 10. The aortic root size at the sinus of Valsalva is borderline dilated at 4.0 cm.. continue Lasix again today (6) DVT prophylaxis: Code(s): Z29.9 - Encounter for prophylactic measures, unspecified Status: Acute Assessment and Plan: DVT prophylaxis: Eliquis (7) Dysphagia: Qualifiers: Dysphagia type: unspecified Qualified Code(s): R13.10 - Dysphagia, unspecified Code(s): R13.10 - Dysphagia, unspecified Status: Acute Assessment and Plan: Tolerated diet (8) Leukocytosis: Qualifiers: Leukocytosis type: unspecified Qualified Code(s): D72.829 - Elevated white blood cell count, unspecified Code(s): D72.829 - Elevated white blood cell count, unspecified Status: Acute Assessment and Plan: resolving, 10/08 wbc 10.4 DS: Summary Hospital Course Reason for hospitalization: COVID-19 pneumonia with respiratory failure and hypoxia Hospital Course: Admitted with COVID-19 pneumonia. Treated with remdesivir and dexamethasone. High-flow oxygen was required. Was finally able to wean to nasal cannula prior to discharge. See below for details. Status at Discharge Overall status at discharge: patient is progressing back to baseline Time Spent with Patient Time attestation: Total time spent providing and/or coordinating discharge services: Exam Narrative: HEENT: PERRL, sclerae nonicteric, pharyngeal mucosa pink and intact NECK: No JVD CHEST: Clear to auscultation. Normal effort. HEART: NL S1/S2, regular, no murmur ABDOMEN: BS+, soft, nontender, no mass, no bruits EXTREMITIES: No cyanosis, edema, or clubbing NEUROLOGIC: CN intact and symmetric to inspection, except MODERATELY SEVERE BEAVER MUSCULOSKELETAL: Tone and strength symmetric. PSYCH: Alert. Oriented to person, p
--- NOTE | 2020-10-11 14:42 | PCRCNOTE ---
pt unavailable for treatment
== END 2020-10-11 20:05 | DRG 177 ==
LOC: ANHED 10:53 → ANH3MEDSUR 11:33 → ANHICU 09-23 11:14 → ANH3MEDSUR 10-11 10:05 → ANHICU 10-13 13:34 → ANHIMU 10-13 13:34
PROVIDERS: Internal Medicine; Internal Medicine Critical Care Medicine; Internal Medicine Pulmonary Disease; Physician Assistant; Admitting Provider Student in an Organized Health Care Education/Training Program; Emergency Provider Emergency Medicine; PCP Internal Medicine; Visit Provider Internal Medicine
DX: U07.1 COVID-19 (principal); J12.82 Pneumonia due to coronavirus disease 2019; J96.01 Acute respiratory failure with hypoxia; I50.23 Acute on chronic systolic (congestive) heart failure; N17.9 Acute kidney failure, unspecified; K52.9 Noninfective gastroenteritis and colitis, unspecified; K29.00 Acute gastritis without bleeding; R13.10 Dysphagia, unspecified; D72.829 Elevated white blood cell count, unspecified; K29.70 Gastritis, unspecified, without bleeding; E86.0 Dehydration; I73.9 Peripheral vascular disease, unspecified; I77.9 Disorder of arteries and arterioles, unspecified
CPT/HCPCS: 36415; 36569; 36600; 71045; 71275; 74177; 76705; 80048; 80053; 81001; 82375; 82565; 82728; 82805; 83050; 83615; 83690; 83735; 83880; 84100; 84460; 84484; 85025; 85027; 85380; 85610; 85730; 86140; 87086; 87088; 92610; 93005; 93306; 93923; 93970; 94002; 94003; 94640; 94667; 94668; 96361; 96374; 97110; 97116; 97161; 97164; 97165; 97530; 97535; 99285; A9270; C1751; C9113; C9803; J0131; J1644; J1650; J1940; J2405; J3262; J7030; J8540; Q9967; U0003; U0005

== ENCOUNTER 2021-10-10 08:54 | Inpatient (IN) | payer MEDICARE, SELFPAY ==
[2021-10-10] VITALS (26 sets, daily range): BP systolic 107–151; BP diastolic 48–103; PULSE 67–101; RESP 14–28; TEMP 36.4–37.6; O2SAT 85–97; BMI 30.2
--- NOTE | ~2021-10-10 | US_ITS ---
EXAMINATION: US venous doppler LE DATE: 10/10/2021 15:02 INDICATION: edema, shortness of breath, PVD . TECHNIQUE: Grayscale images without and with compression and Doppler images of the bilateral lower ex tremity veins were obtained. COMPARISON: None FINDINGS: Right calf veins not visualized secondary to calf edema. The right common femoral vein, profunda (mo p) femoral vein, femoral vein, popliteal vein, and greater saphenous vein are patent. The left common femoral vein, profunda femoral vein, femoral vein, popliteal vein, peroneal vein, pos terior tibial veins, and greater saphenous vein are patent. IMPRESSION: 1. Right calf veins not visualized due to edema. 2. Otherwise patent bilateral lower extremity veins. No evidence of deep venous thrombosis. Reviewed, dictated and finalized at location K.
--- NOTE | ~2021-10-10 | XR_ITS ---
EXAMINATION: XR chest 2V DATE: 10/10/2021 09:33 INDICATION: Shortness of breath TECHNIQUE: frontal and lateral views of the chest were obtained. COMPARISON: Chest radiograph dated 10/04/2020 FINDINGS: Persistent volume loss the right hemithorax with mild elevation the right hemidiaphragm and slight ri ghtward shift of the trachea and mediastinum. Persistent lower lung predominant airspace opacities th roughout the right lung. Small right pleural effusion with blunting at the posterior sulcus and right costophrenic angle. Minimal left basilar opacities and favor atelectasis or mild pulmonary edema ove r pneumonia. No pneumothorax. Borderline heart size accounting for AP technique. There are bridging o steophytes at multiple levels in the spine, consistent with diffuse idiopathic skeletal hyperostosis (DISH). IMPRESSION: 1. Decreased right lung volume with lower lung predominant diffuse opacities throughout the right margy g and minimal left basilar opacities which could represent atelectasis, pneumonia or asymmetric pulmo nary edema. 2. Small right pleural effusion. 3. Borderline heart size. Reviewed, dictated and finalized at location A. IMPRESSION: 1. Decreased right lung volume with lower lung predominant diffuse opacities th roughout the right lung and minimal left basilar opacities which could represen t atelectasis, pneumonia or asymmetric pulmonary edema. 2. Small right pleural effusion. 3. Borderline heart size.
--- NOTE | ~2021-10-10 | CT_ITS ---
EXAMINATION: CTA chest PE protocol DATE: 10/10/2021 10:19 INDICATION: Shortness of breath TECHNIQUE: Computed tomography (CT) pulmonary angiogram of the chest was performed with 100 mL Omnipa que-350 intravenous contrast. Additional 3D reconstructions utilizing coronal maximum intensity proje ction (MIP) were performed. Automated exposure control and iterative reconstruction technique were em ployed. The dose-length product was 646.68 mGy-cm. COMPARISON: None FINDINGS: Good contrast opacification of the pulmonary arteries. There is mild streak artifact from dense contr ast in the superior vena cava and right atrium. There is prominent scattered respiratory motion artif act which mildly decreases sensitivity in some of the segmental pulmonary arteries and more significa ntly decreases sensitivity in the smaller subsegmental pulmonary, particularly in the course of the r ight upper and right lower lung zones. This also limits assessment of fine pulmonary parenchymal deta il. Groundglass opacities and peripheral septal line thickening in the right lung as well as at the l eft lung base most likely combination of atelectasis and mild pulmonary edema. Small left and moderat e right pleural effusions. Interval development of cardiomegaly. No pericardial effusion. Enlargement of the central pulmonary arteries consistent with pulmonary arterial hypertension. Mild fusiform ane urysm of the distal aortic arch which measures approximately 4.0 cm in maximal diameter at the isthmu s. Mild right hilar lymphadenopathy and interval enlargement of multiple mediastinal lymph nodes the largest precarinal lymph node measuring 2.8 x 2.0. There are bridging osteophytes at multiple levels in the spine, consistent with diffuse idiopathic skeletal hyperostosis (DISH). IMPRESSION: 1. No pulmonary embolism. Sensitivity mildly decreased in the segmental pulmonary arteries and more s ignificantly decreased in the subsegmental pulmonary arteries, in some places essentially nondiagnost ic due to respiratory motion. 2. Small left and moderate-sized right pleural effusions. 3. Interstitial and groundglass opacities throughout the right lung as well as at the left lung base likely combination of atelectasis and mild pulmonary edema although differential includes pneumonia. 4. New mild cardiomegaly with enlargement of the central pulmonary arteries consistent with pulmonary arterial hypertension. 5. Mild aneurysmal dilation of the distal thoracic arch measuring 4 cm in maximal diameter at the lev el of the isthmus. 6. Interval progression of right hilar and mediastinal lymphadenopathy which could be reactive, metas tatic disease or lymphoma. Reviewed, dictated and finalized at location A. IMPRESSION: 1. No pulmonary embolism. Sensitivity mildly decreased in the segmental pulmona ry arteries and more significantly decreased in the subsegmental pulmonary makayla laurent, in some places essentially nondiagnostic due to respiratory motion. 2. Small left and moderate-sized right pleural effusions. 3. Interstitial and groundglass opacities throughout the right lung as well as at the left lung base likely combination of atelectasis and mild pulmonary hillary a although differential includes pneumonia. 4. New mild cardiomegaly with enlargement of the central pulmonary arteries con sistent with pulmonary arterial hypertension. 5. Mild aneurysmal dilation of the distal thoracic arch measuring 4 cm in maxim al diameter at the level of the isthmus. 6. Interval progression of right hilar and mediastinal lymphadenopathy which co uld be reactive, metastatic disease or lymphoma.
--- NOTE | 2021-10-10 09:14 | ECG_ITS ---
Measurements Intervals [place] Rate: 90 P: 41 NV: 179 QRS: -18 QRSD: 102 T: 74 QT: 388 QTc: 476 Interpretive Statements SINUS RHYTHM NONSPECIFIC ST & T-WAVE ABNORMALITY Electronically Signed On 10-10-2021 12:39:46 CDT by Gerardo Day M.D.
--- NOTE | 2021-10-10 09:26 | ED.SOB ---
HPI - SOB/Dyspnea General Chief Complaint: Shortness of Breath/Dyspnea Stated Complaint: abd pain, breathing problem Time Seen by Provider: 10/10/21 09:10 History of Present Illness HPI Narrative: This is a 80-year-old male with past medical history of hypertension, DVT, previously admitted for COVID approximately 2 months ago, presents emergency department with worsening shortness of breath. He states he has been short of breath for the past several months, associated with bilateral leg leg swelling, left leg worse than the right, however his symptoms worsened and he returned to the emergency department. He states he lives at home with 1 other individual. He states he has not been taking his Eliquis, changing to aspirin on his own. He denies associated chest pain, cough, fevers or chills. Related Data Allergies Allergy/AdvReac Type Severity Reaction Status Date / Time No Known Allergies Allergy Verified 10/10/21 09:20 Review of Systems Review of Systems: CONSTITUTIONAL: Denies fever, chills, or sweats. EYES: Denies visual changes, redness, or discharge. ENT: Denies rhinorrhea, congestion, sore throat, or otalgia. CARDIOVASCULAR: Denies chest pain, palpitations, or edema. RESPIRATORY: +dyspnea, Denies cough GASTROINTESTINAL: Denies abdominal pain, nausea, vomiting, or diarrhea. GENITOURINARY: Denies dysuria or hematuria. SKIN: Denies rash or itching. MUSCULOSKELETAL: +Bilateral lower leg swelling, left worse than right, denies back pain, joint pain, or myalgia. NEUROLOGIC: Denies headache, numbness, dizziness, or weakness. PSYCHIATRIC: Denies anxiety or depression. ON LICENSE OF [facility] Past Medical History Medical History (Updated 10/10/21 @ 11:43 by Luis Perez MD) Colon cancer Prostate cancer Surgical History Surgical History (Updated 10/01/20 @ 16:57 by Shante Galloway MD) H/O prostatectomy Prostate cancer History of partial colectomy For colon cancer Family History Family History (Updated 10/01/20 @ 16:46 by Shante Galloway MD) Other Family history unobtainable Social History Social History Smoking status: Never smoker Alcohol intake: former Substance use: never Gender identity (if verbalized by the patient): Male Spiritual care concerns: No Exam Narrative: GENERAL: Well-appearing, well-nourished, and in no acute distress. HEAD: Normocephalic, atraumatic. EYES: PERRLA and EOMI. ENT: Nares clear, no rhinorrhea or epistaxis. Mucous membranes dry. Oropharynx without tonsillar hypertrophy exudate or other lesions. NECK: Supple. No adenopathy or masses. No carotid bruits or JVD CHEST: Clear to auscultation. No respiratory distress. No wheezes rales or rhonchi HEART: Regular rate and rhythm. No murmur heard. Normal peripheral pulses. ABDOMEN: Soft, nontender, nondistended, normal active bowel sounds. Well-healed midline surgical scar EXTREMITIES: Bilateral lower extremity edema, left leg 2+, right leg 1+. The left leg has mild erythema extending from the mid tibia to the foot. No tenderness to palpation. Normal range of motion. SKIN: Warm, dry, no rash. NEURO: No focal deficits. Alert and oriented x3. PSYCH: Normal mood and affect. Course Course Emergency Course: 11:40 - CT chest not concerning for PE. Patient's BNP of 16,000 with troponin of 0.38. Creatinine 1.6, where baseline appears to be 1.1. I suspect a CHF exacerbation as the cause of the patient's symptoms. Patient with hospitalist, Dr. Davis who accepts admission. Will start on IV Lasix. Vital Signs Vital signs: Vital Signs Pulse Rate 96 10/10/21 09:01 Respiratory Rate 16 10/10/21 09:01 Pulse Oximetry 95 10/10/21 09:01 Temperature 97.6 F 10/10/21 09:09 Pulse Rate 89 10/10/21 11:15 Respiratory Rate 26 H 10/10/21 11:15 Blood Pressure 141/83 H 10/10/21 11:15 Pulse Oximetry 94 10/10/21 11:15 Oxygen Delivery Room Air 10/10/21 09:
[2021-10-10 09:27] LABS: Basophils Percent Auto 0.4 % (0.2-1.2); Eosinophils Absolute Auto 0.1 K/mm3 (0-0.3); Eosinophils Percent Auto 0.7 % (0-4.4); Hematocrit 40.7 % (42.0-52.0); Hemoglobin 12.9 g/dL (14.0-18.0); Immature Granulocyte Absolute 0.02 K/mm3 (0.00-0.031); Immature Granulocyte Percent A 0.2 % (0-0.5); Lymphocytes Absolute Auto 2.48 K/mm3 (0.9-3.2); Lymphocytes Percent Auto 24.8 % (18.3-44.2); Mean Corpuscular HGB Conc 31.7 g/dl (32-36); Mean Corpuscular Hemoglobin 30.9 pg (26-34); Mean Corpuscular Volume 97.6 fl (80-100); Mean Platelet Volume 9.5 fl (7.4-10.4); Monocytes Absolute Auto 0.7 K/mm3 (0.1-0.6); Monocytes Percent Auto 6.9 % (2.6-8.5); Neutrophils Absolute Auto 6.7 K/mm3 (1.3-6.7); Platelet Count Result 308 k/mm3 (150-375); Red Blood Count 4.17 M/mm3 (4.6-6.20); Red Cell Distribution Width 13.4 % (11.5-14.5)
[2021-10-10 09:40] LABS: INR 1.2
[2021-10-10 09:41] LABS: Partial Thromboplastin Time 28.2 SECONDS (22.3-36.8)
[2021-10-10 09:51] LABS: Alanine Aminotransferase 20 U/L (6-50); Albumin Level 4.7 g/dL (3.5-5.1); Alkaline Phosphatase 86 U/L (38-126); Anion Gap 12 mmol/L (8-16); Aspartate Amino Transferase 23 U/L (17-59); Bilirubin,Total 0.9 mg/dL (0.2-1.3); Blood Urea Nitrogen 29 mg/dL (9-20); Calcium 8.8 mg/dL (8.4-10.2); Carbon Dioxide 24 mmol/L (22-30); Chloride 103 mmol/L (98-107); Estimated CRCL calculation 34 ml/min; Estimated Glomerular Filt Rate 42; Glucose 116 mg/dL (65-110); Lipase 160 U/L (23-300); Potassium 4.4 mmol/L (3.4-5.0); Sodium 139 mmol/L (137-145)
[2021-10-10 10:06] LABS: Troponin I 0.038 ng/mL (0.000-0.034)
[2021-10-10 10:07] LABS: NT Pro B Type Natriuretic Pept 16300 pg/mL (5-100)
[2021-10-10] MEDS: FUROSEMIDE INJ 40 MG/4 ML VIAL IV PUSH (11:47)
--- NOTE | 2021-10-10 13:00 | PM.IMHP ---
H&P: HPI History of Present Illness Date/Time: 10/10/21 13:00 Chief Complaint: Shortness of breath. Narrative: This is an 80-year-old male with history of hypertension, hyperlipidemia, and diastolic dysfunction on echocardiogram in September 2020 who presented to the emergency department for evaluation of shortness of breath. Over the last 2 months he has noticed that he is getting short of breath with day-to-day activities and he has had increasing dyspnea on lesser and lesser exertion for the past couple of weeks. He has also developed lower extremity edema and he has had difficulty sleeping due to shortness of breath at nighttime. CTA of the chest done today showed no obvious pulmonary embolism, new cardiomegaly with enlargement of the central pulmonary arteries consistent with pulmonary arterial hypertension, small left and moderate right sized pleural effusion, interstitial and ground-glass opacities (likely a combination of atelectasis and mild pulmonary edema though differential includes pneumonia), and interval progression of right hilar mediastinal lymphadenopathy. He has been admitted with a working diagnosis of congestive heart failure and at the time my evaluation he reports that he has had quite a bit of urine output. He continues to feel short of breath, even when getting himself up to a seated position. He denies syncope, presyncope, chest pain, pleuritic pain, palpitations, nausea, vomiting, and sweats. Review of Systems Review of Systems: Twelve systems were reviewed and are negative except for as per HPI. [facility] Past Medical History Medical History Chronic anemia Chronic kidney disease, stage 3 Colon cancer Congestive heart failure Echo in 09/2020 showed normal LV systolic function with estimated EF of 55-60% and grade I diastolic dysfunction. Peripheral arterial disease Ischemic left hand in September 2020, possibly related to concomitant COVID 19. Pneumonia due to COVID-19 virus (09/2020) Prostate cancer Surgical History Surgical History History of partial colectomy For colon cancer. History of prostatectomy For prostate cancer. Family History Family History Other Family history unobtainable Social History Social History (Updated 10/12/21 @ 13:36 by Celi Kate PA-C) Social History: Healthcare power of compliance attorney: Kartik Grossman ([phone]). Code status: Smoking status: Never smoker Alcohol intake: former Substance use: never Additional living arrangements comments: Lives in [place]. About a year ago he let homeless man stay in his house were a bit and apparently he never left. Spiritual care concerns: No Meds Home Medications and Allergies Home Medications Medication Instructions Recorded Confirmed Type aspirin 325 mg tablet 325 mg PO DAILY 10/10/21 10/10/21 History docusate sodium 50 mg capsule 50 mg PO DAILY PRN Constipation 10/10/21 10/10/21 History Allergies Allergy/AdvReac Type Severity Reaction Status Date / Time No Known Allergies Allergy Verified 10/10/21 09:20 Vital Signs Vital Signs - 24 hr 10/10/21 09:09 10/10/21 09:09 10/10/21 09:51 Temperature 97.6 F Pulse Rate 90 90 Respiratory Rate 20 Blood Pressure 151/91 H Pulse Oximetry 96 Oxygen Delivery Room Air Room Air 10/10/21 09:01 10/10/21 09:16 10/10/21 09:35 Temperature Pulse Rate 96 89 87 Respiratory Rate 16 17 23 H Blood Pressure Pulse Oximetry 95 96 96 Oxygen Delivery 10/10/21 09:51 10/10/21 10:00 10/10/21 10:01 Temperature Pulse Rate 84 88 89 Respiratory Rate 18 25 H 20 Blood Pressure 141/84 H Pulse Oximetry 97 96 96 Oxygen Delivery 10/10/21 10:02 10/10/21 10:33 10/10/21 11:15 Temperature Pulse Rate 85 92 89 Respiratory Rate 14 26 H Blood Pressure 141/8
--- NOTE | 2021-10-10 13:00 | ADMGEN ---
This patient, Negrito Valdez, was admitted to IMU Room 201-01. Patient/family oriented to hospital policies and general routines including ID bracelet, bed and alarms, visiting hours, pain management, procedures, bathroom and other care routines, personal items, smoking policy, room service/diet, and visiting hours. Information on how to activate the Rapid Response Team has been discussed. Patient/Family are encouraged to report perceived risks to care and to ask questions if they do not understand what they are told or what they should do.
--- NOTE | 2021-10-10 13:15 | ECHO_ITS ---
Patient Info Name: Negrito Valdez Age: 80 years : 1940 Gender: Male Ht: 70 in Wt: 200 lbs BSA: 2.14 m2 HR: 92 bpm BP: 143 / 96 mmHg Heart Rhythm: Sinus Rhythm Technical Quality: Good Exam Date: 10/10/2021 2:02 PM Exam Location: [facility] Patient Status: Inpatient Admit Date: 10/10/2021 Staff Ordering Physician: Celi Kate PA-C Speech Scientist: Kelsy Lundberg RDCS Attending Provider: Catie Davis DO Referring Physician: Humble BENSON; Exam Type: CA echo doppler color flow Study Info Indications - PAD - CHF I27.0 - Primary pulmonary hypertension I51.7 - Cardiomegaly Complete two-dimensional, color flow and Doppler transthoracic echocardiogram is performed. Summary 1. Complete two-dimensional, color flow and Doppler transthoracic echocardiogram is performed. 2. Left ventricular systolic function is moderate to severely reduced, estimated at 30-35%. Severe hypokinesis of the apex, apical anterior, mid anterior, and anteroseptal septal may. 3. Left ventricular chamber dimension is moderately enlarged. 4. There is mildly increased left ventricular wall thickness. 5. The left ventricular diastolic function is grade II diastolic dysfunction. 6. Global longitudinal strain is severely elevated at -6 %. 7. There is mild to moderate tricuspid valve regurgitation. 8. Severe pulmonary hypertension, estimated pulmonary arterial systolic pressure is 69 mmHg. 9. There is mild to moderate mitral valve regurgitation. 10. There is mild aortic valve regurgitation. Left Ventricle Left ventricular systolic function is moderate to severely reduced, estimated at 30-35%. Severe hypokinesis of the apex, apical anterior, mid anterior, and anteroseptal septal may. Left ventricular chamber dimension is moderately enlarged. There is mildly increased left ventricular wall thickness. The left ventricular diastolic function is grade II diastolic dysfunction. Global longitudinal strain is severely elevated at -6 %. Right Ventricle Right ventricular chamber dimension is mildly enlarged. Right ventricular systolic function is normal. Left Atria Left atrial chamber dimension is mildly enlarged. Right Atria Right atrial chamber dimension is moderately enlarged. Aortic Valve The aortic valve is trileaflet. There is no aortic valve stenosis. There is mild aortic valve regurgitation. Pulmonic Valve The pulmonic valve is not well visualized. There is mild pulmonic regurgitation. Mitral Valve The mitral valve has normal leaflets. There is mild to moderate mitral valve regurgitation. The mitral valve annulus is mildly calcified. Tricuspid Valve The tricuspid valve leaflets are normal. There is mild to moderate tricuspid valve regurgitation. Severe pulmonary hypertension, estimated pulmonary arterial systolic pressure is 69 mmHg. Pericardium/Pleural The pericardium appears normal. There is trivial pericardial effusion. Inferior Vena Cava Normal inferior vena cava with >50% collapse upon inspiration consistent with normal right atrial pressure, 5 mmHg. Aorta The aortic root size at the sinus of Valsalva is mildly dilated. There is mild aortic atherosclerosis. Left Ventricular Outflow Tract Name Value Normal LVOT 2D
[2021-10-10 13:42] LABS: Troponin I 0.027 ng/mL (0.000-0.034)
[2021-10-10 17:03] LABS: Troponin I 0.032 ng/mL (0.000-0.034)
[2021-10-11] VITALS (15 sets, daily range): BP systolic 103–132; BP diastolic 52–74; PULSE 77–155; RESP 16–22; TEMP 36.2–37.6; O2SAT 95–98
[2021-10-11 05:18] LABS: Basophils Percent Auto 0.2 % (0.2-1.2); Eosinophils Absolute Auto 0.3 K/mm3 (0-0.3); Hematocrit 35.6 % (42.0-52.0); Hemoglobin 11.2 g/dL (14.0-18.0); Immature Granulocyte Absolute 0.09 K/mm3 (0.00-0.031); Immature Granulocyte Percent A 0.6 % (0-0.5); Lymphocytes Absolute Auto 1.02 K/mm3 (0.9-3.2); Mean Corpuscular HGB Conc 31.5 g/dl (32-36); Mean Corpuscular Hemoglobin 30.8 pg (26-34); Mean Corpuscular Volume 97.8 fl (80-100); Mean Platelet Volume 9.6 fl (7.4-10.4); Monocytes Absolute Auto 0.8 K/mm3 (0.1-0.6); Monocytes Percent Auto 5.4 % (2.6-8.5); Neutrophils Absolute Auto 12.4 K/mm3 (1.3-6.7); Neutrophils Percent Auto 84.8 % (45.5-73.1); Platelet Count Result 239 k/mm3 (150-375); Red Blood Count 3.64 M/mm3 (4.6-6.20); Red Cell Distribution Width 13.3 % (11.5-14.5); White Blood Count 14.7 K/mm3 (4.5-10.0)
[2021-10-11 05:32] LABS: Anion Gap 6 mmol/L (8-16); Blood Urea Nitrogen 29 mg/dL (9-20); Calcium 8.5 mg/dL (8.4-10.2); Carbon Dioxide 28 mmol/L (22-30); Chloride 102 mmol/L (98-107); Estimated CRCL calculation 34 ml/min; Estimated Glomerular Filt Rate 42; Glucose 101 mg/dL (65-110); Potassium 3.6 mmol/L (3.4-5.0); Sodium 136 mmol/L (137-145)
[2021-10-11] MEDS: ASPIRIN 325 MG TABLET PO (08:29)
[2021-10-11] MEDS: ENOXAPARIN 40 MG/0.4 ML SYRINGE SUB-Q (08:29)
[2021-10-11] MEDS: FUROSEMIDE INJ 40 MG/4 ML VIAL IV PUSH ×2 (08:29→15:59)
--- NOTE | 2021-10-11 09:34 | PC.NURSE ---
[facility] flyer was given to patient.
--- NOTE | 2021-10-11 11:33 | PM.CNCAR ---
Assessment and Plan Assessment and plan (1) Acute heart failure with reduced ejection fraction and diastolic dysfunction: Code(s): I50.41 - Acute combined systolic (congestive) and diastolic (congestive) heart failure Status: Acute Assessment and Plan: Acute decompensated heart failure with reduced ejection fraction with new diagnosis cardiomyopathy EF 30-35% with severe hypokinesis of the apex, apical anterior, mid anterior, and anteroseptal may. He has severe pulmonary hypertension, yign-rh-[id number] TR and xkcp-lp-luvbkaju MR. Responding well to IV Lasix. Continue 40 mg IV b.i.d.. Monitor daily weight, input and output, low sodium intake. CHF counseling. Precise etiology remains unclear. However, given moderate LV dysfunction with associated wall motion abnormalities concern for obstructive CAD as primary likelihood. We discussed nonischemic contributions as well. Recommended invasive angiography for delineation of coronary anatomy 1 see is more euvolemic and renal function permitting. We discussed risks and benefits with coronary angiography including but not limited to bleeding, infection, stroke, myocardial infarction, , arrhythmias, as well as injury to the kidneys resulting worsening renal function given baseline abnormalities. If renal function deteriorates further will hold off on invasive angiography until this is stabilized. Patient verbalized understanding of the recommendations and agreed with plan of care. He agrees to undergo coronary angiography. Will keep patient NPO after midnight in the off chance if renal function and volume status permits angiography. He may require an additional 24 hours of diuresis with possible angiography on Saturday. We will need to monitor him clinically with further recommendations to follow. We discussed at length prospect of percutaneous intervention/stent implantation, possibility of severe multivessel disease and potential recommendation for CABG versus medical management. Will initiate low-dose Entresto, carvedilol for now. Check lipid panel. Add statin as appropriate. Continue telemetry. DVT prophylaxis. (2) Cardiomyopathy: Code(s): I42.9 - Cardiomyopathy, unspecified Status: Acute Assessment and Plan: As above, moderate LV dysfunction EF 30 35% with wall motion abnormalities. As BP and renal function permit optimize medical therapy with addition of carvedilol, Entresto and if tolerated spironolactone in addition to IV Lasix. (3) Chronic kidney disease, stage 3: Code(s): N18.30 - Chronic kidney disease, stage 3 unspecified Status: Acute Assessment and Plan: Monitor closely. Check BMP in a.m.. (4) Pulmonary hypertension: Code(s): I27.20 - Pulmonary hypertension, unspecified Status: Acute Assessment and Plan: Severe, RVSP 69 mm Hg mild moderate MR and TR. Sec apnea link overnight. (5) Chronic anemia: Code(s): D64.9 - Anemia, unspecified Status: Acute Assessment and Plan: Stable, mild. Continue to follow H&H. No clinical suggestion of GI blood loss. (6) Elevated troponin: Code(s): R77.8 - Other specified abnormalities of plasma proteins Status: Acute Assessment and Plan: Minimally elevated, flat curve largely unchanged compared to September 2020. History of Present Illness History of Present Illness Consult date/time: Date of service: 10/11/21 11:33 Requesting physician: Celi Kate PA-C Consult reason: congestive heart failure Reason For Visit: chf exacerbation,dyspnea Narrative: Patient is a very pleasant 80-year-old male with a past medical history significant for hypertension, hyperlipidemia in previous documentation of diastolic dysfunction by echocardiogram 09/2020 presented emergency department with progressive 2-3 months fatigue, exertional dyspnea, 15 lb weight gain, lower extremity edema, abdominal fullness, orthopnea and PND. [place]
[2021-10-11 12:14] LABS: Cholesterol 124 mg/dL (0-200); HDL Direct 27 mg/dL; Triglycerides 66 mg/dL (<150)
[2021-10-11 12:25] LABS: LDL Cholesterol Direct 73 mg/dL
--- NOTE | 2021-10-11 13:47 | PM.IMPN ---
Progress Note: A&P Assessment and Plan (1) Acute exacerbation of congestive heart failure: Code(s): I50.9 - Heart failure, unspecified Status: Acute Assessment and Plan: He will be diuresed with close monitoring of volume status and renal function. Echocardiogram ordered. Cardiology to see the patient (2) Elevated troponin: Code(s): R77.8 - Other specified abnormalities of plasma proteins Status: Acute Assessment and Plan: Cardiology consult (3) Chronic kidney disease, stage 3: Code(s): N18.30 - Chronic kidney disease, stage 3 unspecified Status: Acute Assessment and Plan: Creatinine is a bit higher than what he typically runs. Monitor closely while diuresing. (4) Chronic anemia: Code(s): D64.9 - Anemia, unspecified Status: Acute Assessment and Plan: Hemoglobin and hematocrit are stable on review of previous labs. (5) Lymphadenopathy: Code(s): R59.1 - Generalized enlarged lymph nodes Status: Acute Assessment and Plan: Mediastinal Possible pneumonia also noted on CT Will start on antibiotics. Will need outpatient follow-up regarding this. (6) Pneumonia: Code(s): J18.9 - Pneumonia, unspecified organism Status: Acute Assessment and Plan: IV antibiotics Subjective Date/time seen: 10/11/21 13:47 No complaints Exam Narrative: General: Mildly ill-appearing male sitting up in bed. Weight: 95.5 kg. BMI: 30.2. HEENT: Slightly hard of hearing. PERRL, EOMI. Sclerae anicteric. Oral mucosa moist. Neck: Supple. Mild JVD. Respiratory: Mild tachypnea. He is speaking in full sentences. Lung sounds are diminished at the bases with faint crackles at the right base. Cardiovascular: Regular rate and rhythm with S1-S2. Gastrointestinal: Abdomen is soft, nontender, and nondistended with positive bowel sounds. Skin: Warm and dry. Extremities: No cyanosis or clubbing. Two to 3+ pitting edema of the lower extremities, left greater than right. Mild erythema of the legs, likely due to swelling. No palpable knots or cords. Peripheral pulses intact. Neurological: Alert. Cranial nerves 2-12 are grossly intact. No gross focal deficits to casual conversation. Psychiatric: Pleasant and cooperative with appropriate mood and affect. Objective Data Vital Signs Vital Signs: Vital Signs - 24 hr 10/10/21 14:00 10/10/21 16:00 10/10/21 16:00 Temperature Pulse Rate 67 95 Respiratory Rate Blood Pressure Pulse Oximetry 94 Oxygen Delivery Nasal Cannula Oxygen Flow Rate 2 10/10/21 16:44 10/10/21 18:00 10/10/21 20:00 Temperature 97.8 F 98.5 F Pulse Rate 93 85 91 Respiratory Rate 22 H 18 Blood Pressure 120/96 H 107/48 L Pulse Oximetry 93 91 Oxygen Delivery Oxygen Flow Rate 10/10/21 20:00 10/10/21 20:00 10/10/21 22:00 Temperature Pulse Rate 92 93 86 Respiratory Rate 18 Blood Pressure Pulse Oximetry 93 Oxygen Delivery Nasal Cannula Oxygen Flow Rate 2 10/10/21 23:37 10/10/21 23:37 10/10/21 23:42 Temperature 99.6 F Pulse Rate 88 88 85 Respiratory Rate 18 18 Blood Pressure 113/57 L Pulse Oximetry 93 96 Oxygen Delivery Nasal Cannula Oxygen Flow Rate 2 10/11/21 01:49 10/11/21 03:55 10/11/21 04:00 Temperature 99.7 F H Pulse Rate 87 91 87 Respiratory Rate 18 Blood Pressure 106/59 L Pulse Oximetry 95 Oxygen Delivery Oxygen Flow Rate 10/11/21 04:00 10/11/21 06:00 10/11/21 07:54 Temperature Pulse Rate 89 85 Respiratory Rate 18 Blood Pressure Pulse Oximetry 95 96 Oxygen Delivery Nasal Cannula Nasal Cannula Oxygen Flow Rate 2 2 10/11/21 08:00 10/11/21 08:00 10/11/21 08:00 Temperature 98.7 F Pulse Rate 80 91 Respiratory Rate 16 Blood Pressure 110/56 L Pulse Oximetry 98 97 Oxygen Delivery Nasal Cannula Oxygen Flow Rate 2 10/11/21 09:33 10/11/21 10:00 10/11/21 12:00 Temperature
[2021-10-11] MEDS: carvediloL 3.125 MG TABLET PO (20:12)
[2021-10-11] MEDS: SACUBITRIL/VALSARTAN 12-13 MG TABLET 1 TAB PO (20:13)
[2021-10-12] VITALS (19 sets, daily range): BP systolic 99–158; BP diastolic 49–80; PULSE 75–86; RESP 14–20; TEMP 36.2–37.2; O2SAT 89–97
[2021-10-12 04:56] LABS: Estimated CRCL calculation 32 ml/min; Estimated Glomerular Filt Rate 39
[2021-10-12 07:50] LABS: Hematocrit 37.6 % (42.0-52.0); Hemoglobin 11.9 g/dL (14.0-18.0); Mean Corpuscular HGB Conc 31.6 g/dl (32-36); Mean Corpuscular Hemoglobin 30.7 pg (26-34); Mean Corpuscular Volume 97.2 fl (80-100); Platelet Count Result 261 k/mm3 (150-375); Red Blood Count 3.87 M/mm3 (4.6-6.20); Red Cell Distribution Width 13.4 % (11.5-14.5)
[2021-10-12] MEDS: ENOXAPARIN 40 MG/0.4 ML SYRINGE SUB-Q (09:24)
[2021-10-12] MEDS: ASPIRIN 81 MG CHEWABLE TABLET PO (09:24)
[2021-10-12] MEDS: carvediloL 3.125 MG TABLET PO ×2 (09:24→20:09)
--- NOTE | 2021-10-12 09:33 | PM.PNCARD ---
Progress Note: A&P Assessment and Plan (1) Acute heart failure with reduced ejection fraction and diastolic dysfunction: Code(s): I50.41 - Acute combined systolic (congestive) and diastolic (congestive) heart failure <LONNY Del Rosario - Last Filed: 10/12/21 13:42> Status: Acute <LONNY Del Rosario - Last Filed: 10/12/21 13:42> Assessment and Plan: Acute decompensated heart failure with reduced ejection fraction with new diagnosis cardiomyopathy EF 30-35% with severe hypokinesis of the apex, apical anterior, mid anterior, and anteroseptal may. He has severe pulmonary hypertension, lrgg-sm-rnikgzfd TR and hyho-yh-vneicnsc MR. Responding well to IV Lasix. Continue 40 mg IV b.i.d. Monitor daily weight Accurate intake and output low sodium diet CHF counseling Recommend cardiac cath to delineate etiology. Will keep NPO after mn and if renal function improved in the morning can proceed with coronary angiogram. Hold Entresto today. <LONNY Del Rosario - Last Filed: 10/12/21 13:42> (2) Cardiomyopathy: Code(s): I42.9 - Cardiomyopathy, unspecified <LONNY Del Rosario - Last Filed: 10/12/21 13:42> Status: Acute <LONNY Del Rosario - Last Filed: 10/12/21 13:42> Assessment and Plan: As above, moderate LV dysfunction EF 30 35% with wall motion abnormalities. As BP and renal function permit optimize medical therapy with addition of carvedilol, Entresto and if tolerated spironolactone in addition to IV Lasix. <LONNY Del Rosario - Last Filed: 10/12/21 13:42> (3) Chronic kidney disease, stage 3: Code(s): N18.30 - Chronic kidney disease, stage 3 unspecified <LONNY Del Rosario - Last Filed: 10/12/21 13:42> Status: Acute <LONNY Del Rosario - Last Filed: 10/12/21 13:42> Assessment and Plan: Monitor closely. Check BMP in a.m.. <LONNY Del Rosario - Last Filed: 10/12/21 13:42> (4) Pulmonary hypertension: Code(s): I27.20 - Pulmonary hypertension, unspecified <LONNY Del Rosario - Last Filed: 10/12/21 13:42> Status: Acute <LONNY Del Rosario - Last Filed: 10/12/21 13:42> Assessment and Plan: Severe, RVSP 69 mm Hg mild moderate MR and TR. Apnea link not done last night, check tonight. <LONNY Del Rosario - Last Filed: 10/12/21 13:42> (5) Chronic anemia: Code(s): D64.9 - Anemia, unspecified <LONNY Del Rosario - Last Filed: 10/12/21 13:42> Status: Acute <LONNY Del Rosario - Last Filed: 10/12/21 13:42> Assessment and Plan: Stable, mild. Continue to follow H&H. No clinical suggestion of GI blood loss. <LONNY Del Rosario - Last Filed: 10/12/21 13:42> (6) Elevated troponin: Code(s): R77.8 - Other specified abnormalities of plasma proteins <LONNY Del Rosario - Last Filed: 10/12/21 13:42> Status: Acute <LONNY Del Rosario - Last Filed: 10/12/21 13:42> Assessment and Plan: Minimally elevated, flat curve largely unchanged compared to September 2020. <LONNY Del Rosario - Last Filed: 10/12/21 13:42> Additional Plan Attending Addendum: I agree with the above documentation and plan of care as outlined. <Abdoul Vidales MD - Last Filed: 10/12/21 14:49> Subjective Date/time seen: 10/12/21 09:33 Cardiology follow up for cardiomyopathy, CHF Feeling much better today. Breathing has improved significantly. Still has LE edema and now has cellulitis on LLE. Denies any chest pain or palpitations. <LONNY Del Rosario - Last Filed: 10/12/21 13:42> Review of Systems Review of Systems: All systems reviewed & are unremarkable except as noted in HPI and below <LONNY Del Rosario - Last Filed: 10/12/21 13:42> Constitutional: Constitutional: Reports as per HPI and Reports no additional constitutional complaints <LONNY Del Rosario - Last Filed: 10/12/21 13:42> Eyes: Eyes: Reports as per HPI and
[2021-10-12] MEDS: FUROSEMIDE INJ 40 MG/4 ML VIAL IV PUSH ×2 (10:21→16:11)
--- NOTE | 2021-10-12 12:26 | PM.IMPN ---
Progress Note: A&P Assessment and Plan (1) Acute exacerbation of congestive heart failure: Code(s): I50.9 - Heart failure, unspecified Status: Acute Assessment and Plan: He will be diuresed with close monitoring of volume status and renal function. Echocardiogram ordered. Cardiology to see the patient -breathing is improved, continue IV diuretic. Plan for catheterization per Cardiology. (2) Elevated troponin: Code(s): R77.8 - Other specified abnormalities of plasma proteins Status: Acute Assessment and Plan: Cardiology consult (3) Chronic kidney disease, stage 3: Code(s): N18.30 - Chronic kidney disease, stage 3 unspecified Status: Acute Assessment and Plan: Creatinine is a bit higher than what he typically runs. Monitor closely while diuresing. (4) Chronic anemia: Code(s): D64.9 - Anemia, unspecified Status: Acute Assessment and Plan: Hemoglobin and hematocrit are stable on review of previous labs. (5) Lymphadenopathy: Code(s): R59.1 - Generalized enlarged lymph nodes Status: Acute Assessment and Plan: Mediastinal Possible pneumonia also noted on CT Will start on antibiotics. Will need outpatient follow-up regarding this. (6) Pneumonia: Code(s): J18.9 - Pneumonia, unspecified organism Status: Acute Assessment and Plan: IV antibiotics (7) Cellulitis: Code(s): L03.90 - Cellulitis, unspecified Status: Acute Assessment and Plan: IV antibiotics Subjective Date/time seen: 10/12/21 12:26 No complaints Exam Narrative: General: Mildly ill-appearing male sitting up in bed. Weight: 95.5 kg. BMI: 30.2. HEENT: Slightly hard of hearing. PERRL, EOMI. Sclerae anicteric. Oral mucosa moist. Neck: Supple. Mild JVD. Respiratory: Mild tachypnea. He is speaking in full sentences. Lung sounds are diminished at the bases with faint crackles at the right base. Cardiovascular: Regular rate and rhythm with S1-S2. Gastrointestinal: Abdomen is soft, nontender, and nondistended with positive bowel sounds. Skin: Warm and dry. Extremities: No cyanosis or clubbing. Two to 3+ pitting edema of the lower extremities, left greater than right. Mild erythema of the legs, likely due to swelling. No palpable knots or cords. Peripheral pulses intact. Neurological: Alert. Cranial nerves 2-12 are grossly intact. No gross focal deficits to casual conversation. Psychiatric: Pleasant and cooperative with appropriate mood and affect. Objective Data Vital Signs Vital Signs: Vital Signs - 24 hr 10/11/21 14:00 10/11/21 15:58 10/11/21 16:00 Temperature Pulse Rate 84 80 Respiratory Rate Blood Pressure Pulse Oximetry Oxygen Delivery Room Air 10/11/21 16:00 10/11/21 16:00 10/11/21 18:00 Temperature 97.1 F L Pulse Rate 85 88 Respiratory Rate 22 H Blood Pressure 132/62 Pulse Oximetry 97 96 Oxygen Delivery Room Air 10/11/21 20:12 10/11/21 20:00 10/11/21 20:00 Temperature 97.9 F Pulse Rate 79 77 82 Respiratory Rate 18 Blood Pressure 103/52 L Pulse Oximetry 96 Oxygen Delivery 10/11/21 20:00 10/11/21 21:11 10/12/21 00:00 Temperature Pulse Rate 82 81 76 Respiratory Rate 18 Blood Pressure Pulse Oximetry 96 Oxygen Delivery Room Air 10/12/21 00:00 10/12/21 00:00 10/12/21 02:00 Temperature 99.0 F Pulse Rate 76 86 75 Respiratory Rate 18 18 Blood Pressure 99/55 L Pulse Oximetry 96 90 Oxygen Delivery Room Air 10/12/21 04:00 10/12/21 04:00 10/12/21 04:00 Temperature 98.3 F Pulse Rate 81 81 83 Respiratory Rate 18 16 Blood Pressure 104/65 Pulse Oximetry 96 89 L Oxygen Delivery Room Air 10/12/21 04:30 10/12/21 05:30 10/12/21 05:54 Temperature Pulse Rate 75 Respiratory Rate Blood Pressure Pulse Oximetry 95 96 Oxygen Delivery 10/12/21 08:00 10/12/21 09:24 10/12/21 08:00 Grzegorza
[2021-10-13] VITALS (11 sets, daily range): BP systolic 119–148; BP diastolic 66–96; PULSE 65–88; RESP 14–20; TEMP 35.3–36.7; O2SAT 93–96
[2021-10-13 05:35] LABS: Hematocrit 37.8 % (42.0-52.0); Hemoglobin 11.8 g/dL (14.0-18.0); Mean Corpuscular HGB Conc 31.2 g/dl (32-36); Mean Corpuscular Hemoglobin 30.5 pg (26-34); Mean Corpuscular Volume 97.7 fl (80-100); Mean Platelet Volume 9.1 fl (7.4-10.4); Platelet Count Result 272 k/mm3 (150-375); Red Blood Count 3.87 M/mm3 (4.6-6.20); Red Cell Distribution Width 13.3 % (11.5-14.5); White Blood Count 9.4 K/mm3 (4.5-10.0)
[2021-10-13 05:48] LABS: Anion Gap 8 mmol/L (8-16); Blood Urea Nitrogen 38 mg/dL (9-20); Calcium 8.2 mg/dL (8.4-10.2); Carbon Dioxide 30 mmol/L (22-30); Chloride 97 mmol/L (98-107); Estimated CRCL calculation 31 ml/min; Estimated Glomerular Filt Rate 36; Glucose 89 mg/dL (65-110); Potassium 3.2 mmol/L (3.4-5.0); Sodium 135 mmol/L (137-145)
[2021-10-13] MEDS: ASPIRIN 81 MG CHEWABLE TABLET PO (09:22)
[2021-10-13] MEDS: POTASSIUM CHLORIDE INJ 40 MEQ in SODIUM CHLORIDE 0.9% IV 500 ML 130 MEQ IVPB (09:22)
[2021-10-13] MEDS: carvediloL 3.125 MG TABLET PO ×2 (09:23→19:55)
--- NOTE | 2021-10-13 10:44 | PM.IMPN ---
Progress Note: A&P Assessment and Plan (1) Acute exacerbation of congestive heart failure: Code(s): I50.9 - Heart failure, unspecified Status: Acute Assessment and Plan: He will be diuresed with close monitoring of volume status and renal function. Echocardiogram ordered. Cardiology to see the patient -breathing is improved, continue IV diuretic. Plan for catheterization per Cardiology. (2) Elevated troponin: Code(s): R77.8 - Other specified abnormalities of plasma proteins Status: Acute Assessment and Plan: Cardiology consult (3) Chronic kidney disease, stage 3: Code(s): N18.30 - Chronic kidney disease, stage 3 unspecified Status: Acute Assessment and Plan: Creatinine is a bit higher than what he typically runs. Monitor closely while diuresing. (4) Chronic anemia: Code(s): D64.9 - Anemia, unspecified Status: Acute Assessment and Plan: Hemoglobin and hematocrit are stable on review of previous labs. (5) Lymphadenopathy: Code(s): R59.1 - Generalized enlarged lymph nodes Status: Acute Assessment and Plan: Mediastinal Possible pneumonia also noted on CT Will start on antibiotics. Will need outpatient follow-up regarding this. (6) Pneumonia: Code(s): J18.9 - Pneumonia, unspecified organism Status: Acute Assessment and Plan: IV antibiotics (7) Cellulitis: Code(s): L03.90 - Cellulitis, unspecified Status: Acute Assessment and Plan: IV antibiotics Subjective Date/time seen: 10/13/21 10:44 no new complaints possible left heart catheterization today Exam Narrative: General: Mildly ill-appearing male sitting up in bed. Weight: 95.5 kg. BMI: 30.2. HEENT: Slightly hard of hearing. PERRL, EOMI. Sclerae anicteric. Oral mucosa moist. Neck: Supple. Mild JVD. Respiratory: Mild tachypnea. He is speaking in full sentences. Lung sounds are diminished at the bases with faint crackles at the right base. Cardiovascular: Regular rate and rhythm with S1-S2. Gastrointestinal: Abdomen is soft, nontender, and nondistended with positive bowel sounds. Skin: Warm and dry. Extremities: No cyanosis or clubbing. Two to 3+ pitting edema of the lower extremities, left greater than right. Mild erythema of the legs, likely due to swelling. No palpable knots or cords. Peripheral pulses intact. Neurological: Alert. Cranial nerves 2-12 are grossly intact. No gross focal deficits to casual conversation. Psychiatric: Pleasant and cooperative with appropriate mood and affect. Objective Data Vital Signs Vital Signs: Vital Signs - 24 hr 10/12/21 12:00 10/12/21 12:00 10/12/21 12:00 Temperature 97.1 F L Pulse Rate 77 79 Respiratory Rate 20 Blood Pressure 158/49 H Pulse Oximetry 94 Oxygen Delivery Room Air Oxygen Flow Rate 10/12/21 14:00 10/12/21 14:25 10/12/21 16:00 Temperature Pulse Rate 78 Respiratory Rate Blood Pressure Pulse Oximetry 96 Oxygen Delivery Nasal Cannula Room Air Oxygen Flow Rate 2 10/12/21 16:00 10/12/21 16:00 10/12/21 18:00 Temperature 98 F Pulse Rate 83 81 82 Respiratory Rate 18 Blood Pressure 112/61 Pulse Oximetry 95 Oxygen Delivery Oxygen Flow Rate 10/12/21 20:09 10/12/21 20:00 10/12/21 20:00 Temperature 97.9 F Pulse Rate 76 75 78 Respiratory Rate 16 Blood Pressure 102/52 L Pulse Oximetry 97 Oxygen Delivery Oxygen Flow Rate 10/12/21 20:00 10/12/21 21:51 10/12/21 23:03 Temperature Pulse Rate 78 79 Respiratory Rate 16 Blood Pressure Pulse Oximetry 97 96 Oxygen Delivery Room Air Room Air Oxygen Flow Rate 10/12/21 23:12 10/13/21 00:00 10/13/21 00:00 Temperature 98.4 F Pulse Rate 82 88 88 Respiratory Rate 14 14 Blood Pressure 105/68 Pulse Oximetry 94 94 Oxygen Delivery Room Air Oxygen Flow Rate 10/13/21 02:00 10/13/21 04:00 10/13/21 04:00
--- NOTE | 2021-10-13 12:31 | PM.PNCARD ---
Progress Note: A&P Assessment and Plan (1) Acute heart failure with reduced ejection fraction and diastolic dysfunction: Code(s): I50.41 - Acute combined systolic (congestive) and diastolic (congestive) heart failure Status: Acute Plan 80-year-old gentleman with congestive heart failure with reduced ejection fraction, new diagnosis of systolic left ventricular dysfunction. He is still in a state of decompensated left-sided heart failure today and I do not believe a reasonable candidate for catheterization. On top of that his creatinine is up a touch at 1.8. We are going to have to treat this gentleman's heart failure medically and then determine later if he is or is not a candidate for catheterization. Treating his heart failure into a better state of compensation has to take priority over performing an angiogram in my opinion. Will resume his Entresto and continue diuresis. Isaac Jackson MD [facility] Subjective Date/time seen: Date of service: 10/13/21 12:31 Interval history: Follow-up visit in this 80-year-old man with systolic congestive heart failure newly diagnosed cardiomyopathy. Patient says that he was feeling better this morning this afternoon he is more short of breath and having difficulty lying flat. Patient was being held NPO for possible coronary angiography. Exam Const: General: comfortable and no acute distress Other: Pleasant elderly man sitting up on the bedside no distress in this position HENMT: Mouth: Yes moist mucous membranes Eyes: Sclera: sclerae normal Pupils: Equal, round and reactive pupils present Neck: Neck: supple Other: About 2 cm of JVD Resp: Effort & Inspection: normal respiratory effort Other: Bibasilar pulmonary rales are noted Cardio: Rate: regular rate Rhythm: regular rhythm Other: No murmur no gallop GI: GI Palp: Yes Soft to palpation Auscultation: normal bowel sounds Skin: General skin exam: normal color Neuro: Other: Alert and oriented x3 Extrem: General: normal to inspection Other: Minimal pretibial edema Objective Data Vital Signs Vital Signs: Vital Signs - 24 hr 10/12/21 14:00 10/12/21 14:25 10/12/21 16:00 Temperature Pulse Rate 78 Respiratory Rate Blood Pressure Pulse Oximetry 96 Oxygen Delivery Nasal Cannula Room Air Oxygen Flow Rate 2 10/12/21 16:00 10/12/21 16:00 10/12/21 18:00 Temperature 36.6 C Pulse Rate 83 81 82 Respiratory Rate 18 Blood Pressure 112/61 Pulse Oximetry 95 Oxygen Delivery Oxygen Flow Rate 10/12/21 20:09 10/12/21 20:00 10/12/21 20:00 Temperature 36.6 C Pulse Rate 76 75 78 Respiratory Rate 16 Blood Pressure 102/52 L Pulse Oximetry 97 Oxygen Delivery Oxygen Flow Rate 10/12/21 20:00 10/12/21 21:51 10/12/21 23:03 Temperature Pulse Rate 78 79 Respiratory Rate 16 Blood Pressure Pulse Oximetry 97 96 Oxygen Delivery Room Air Room Air Oxygen Flow Rate 10/12/21 23:12 10/13/21 00:00 10/13/21 00:00 Temperature 36.9 C Pulse Rate 82 88 88 Respiratory Rate 14 14 Blood Pressure 105/68 Pulse Oximetry 94 94 Oxygen Delivery Room Air Oxygen Flow Rate 10/13/21 02:00 10/13/21 04:00 10/13/21 04:00 Temperature Pulse Rate 77 73 73 Respiratory Rate 14 Blood Pressure Pulse Oximetry 94 Oxygen Delivery Room Air Oxygen Flow Rate 10/13/21 04:00 10/13/21 05:48 10/13/21 08:00 Temperature 36.7 C 36.4 C Pulse Rate 76 75 77 Respiratory Rate 18 20 Blood Pressure 119/66 148/74 H Pulse Oximetry 95 93 Oxygen Delivery Oxygen Flow Rate 10/13/21 09:23 10/13/21 12:00 Temperature 36.2 C L Pulse Rate 83 72 Respiratory Rate 20 Blood Pressure 123/96 H Pulse Oximetry 95 Oxygen Delivery Oxygen Flow Rate Intake/Output Intake/Output: Intake & Output 10/10/21 10/11/21 10/12/21 10/13/21 23:59 23:59 23:59 23:59 Intake Total 540 1710 1670 Output Total 7210 4200 4530 850 Balance
[2021-10-13] MEDS: FUROSEMIDE INJ 40 MG/4 ML VIAL IV PUSH (14:08)
--- NOTE | 2021-10-13 14:15 | PC.NURSE ---
This patient, Negrito Valdez, was transferred to [facility] on 10/13/21 at 1415. Personal belongings sent with patient. Report given to Ginette PAUL. Appropriate documentation sent with patient.
--- NOTE | 2021-10-13 14:20 | PC.NURSE ---
Received from [facility] via bed.
[2021-10-13] MEDS: SACUBITRIL/VALSARTAN 12-13 MG TABLET 1 TAB PO (19:55)
[2021-10-14 04:43] VITALS: BP 107/60; PULSE 73; RESP 20; TEMP 36; O2SAT 90
[2021-10-14 08:15] VITALS: RESP 20; O2SAT 93
[2021-10-14 08:30] VITALS: PULSE 73
[2021-10-14] MEDS: ASPIRIN 81 MG CHEWABLE TABLET PO (08:30)
[2021-10-14] MEDS: carvediloL 3.125 MG TABLET PO ×2 (08:30→20:24)
[2021-10-14] MEDS: FUROSEMIDE INJ 40 MG/4 ML VIAL IV PUSH (08:31)
[2021-10-14] MEDS: SACUBITRIL/VALSARTAN 12-13 MG TABLET 1 TAB PO ×2 (08:31→20:23)
[2021-10-14] MEDS: DOCUSATE SODIUM 100 MG CAPSULE PO (08:38)
--- NOTE | 2021-10-14 08:59 | PM.PNCARD ---
Progress Note: A&P Assessment and Plan (1) Acute heart failure with reduced ejection fraction and diastolic dysfunction: Code(s): I50.41 - Acute combined systolic (congestive) and diastolic (congestive) heart failure Status: Acute Assessment and Plan: continue Entresto, carvedilol. Will reduce his furosemide to 20 mg IV b.i.d. (2) Cardiomyopathy: Code(s): I42.9 - Cardiomyopathy, unspecified Status: Acute Assessment and Plan: ? Etiology. possibly proceed with coronary angiogram on Saturday. Catheterization could even be performed as outpatient (3) Pulmonary hypertension: Code(s): I27.20 - Pulmonary hypertension, unspecified Status: Acute (4) Chronic kidney disease, stage 3: Code(s): N18.30 - Chronic kidney disease, stage 3 unspecified Status: Acute Assessment and Plan: will repeat a BMP today. Creatinine was up yesterday. Plan 80-year-old gentleman with congestive heart failure with reduced ejection fraction, new diagnosis of systolic left ventricular dysfunction. He is still in a state of decompensated left-sided heart failure today and I do not believe a reasonable candidate for catheterization. On top of that his creatinine is up a touch at 1.8. We are going to have to treat this gentleman's heart failure medically and then determine later if he is or is not a candidate for catheterization. Treating his heart failure into a better state of compensation has to take priority over performing an angiogram in my opinion. Will resume his Entresto and continue diuresis. Isaac Jackson MD [facility] Subjective Date/time seen: 10/14/21 08:59 Interval history: Follow-up visit in this 80-year-old man with systolic congestive heart failure newly diagnosed cardiomyopathy. date of [id number]/14/2021: Feels okay. No chest pain. Swelling has gotten better. no shortness of breath Review of Systems Review of Systems: All systems reviewed & are unremarkable except as noted in HPI and below Constitutional: Constitutional: Reports as per HPI and Reports no additional constitutional complaints Eyes: Eyes: Reports as per HPI and Reports no additional eye complaints ENT: Reports system reviewed and no additional complaints, except as documented and Reports as per HPI Cardiovascular: Cardiovascular: Reports as per HPI and Reports no additional cardiovascular complaints Respiratory: Respiratory: Reports as per HPI and Reports no additional respiratory complaints Gastrointestinal: Gastrointestinal: Reports as per HPI and Reports no additional gastrointestinal complaints Genitourinary: Genitourinary: Reports no additional male genitourinary complaints and Reports as per HPI Musculoskeletal: Musculoskeletal: Reports no additional musculoskeletal complaints and Reports as per HPI Integumentary/Breasts: Skin/Breast: Reports system reviewed and no additional complaints, except as docu and Reports as per HPI Neurologic: Reports system reviewed and no additional complaints, except as documented and Reports as per HPI Psychiatric: Psychiatric: Reports no additional psychiatric complaints and Reports as per HPI Endocrine: Endocrine: Reports no additional endocrine complaints and Reports as per HPI Hematologic/Lymphatic: Hematologic/Lymphatic: Reports no additional hematologic/lymphatic complaints and Reports as per HPI Allergic/Immunologic: Allergic/Immunologic: Reports no additional allergic/immunologic complaints and Reports as per HPI Exam Const: General: comfortable, no acute distress, alert and awake Orientation/consciousness: patient oriented x3 Other: Pleasant elderly man sitting up on the bedside no distress in this position HENMT: Head: normal to inspection Mouth: Yes moist mucous membranes Eyes: General: appearance normal, both eyes and all related structures Sclera: sclerae normal Pupils: Equal, round and reactive pupils present Neck: Neck: norm
[2021-10-14] MEDS: POTASSIUM CHLORIDE 20 MEQ TABLET 40 MEQ PO (09:11)
[2021-10-14] MEDS: ENOXAPARIN 40 MG/0.4 ML SYRINGE SUB-Q (09:11)
[2021-10-14 10:00] LABS: Anion Gap 9 mmol/L (8-16); Blood Urea Nitrogen 35 mg/dL (9-20); Calcium 9.1 mg/dL (8.4-10.2); Carbon Dioxide 32 mmol/L (22-30); Chloride 97 mmol/L (98-107); Estimated CRCL calculation 37 ml/min; Estimated Glomerular Filt Rate 45; Glucose 121 mg/dL (65-110); Potassium 3.4 mmol/L (3.4-5.0); Sodium 138 mmol/L (137-145)
--- NOTE | 2021-10-14 12:08 | PM.IMPN ---
Progress Note: A&P Assessment and Plan (1) Acute exacerbation of congestive heart failure: Code(s): I50.9 - Heart failure, unspecified Status: Acute Assessment and Plan: He will be diuresed with close monitoring of volume status and renal function. Echocardiogram ordered. Cardiology to see the patient -breathing is improved, continue IV diuretic. Plan for catheterization per Cardiology -scheduling per Cardiology. (2) Elevated troponin: Code(s): R77.8 - Other specified abnormalities of plasma proteins Status: Acute Assessment and Plan: Cardiology consult (3) Chronic kidney disease, stage 3: Code(s): N18.30 - Chronic kidney disease, stage 3 unspecified Status: Acute Assessment and Plan: Creatinine is a bit higher than what he typically runs. Monitor closely while diuresing. (4) Chronic anemia: Code(s): D64.9 - Anemia, unspecified Status: Acute Assessment and Plan: Hemoglobin and hematocrit are stable on review of previous labs. (5) Lymphadenopathy: Code(s): R59.1 - Generalized enlarged lymph nodes Status: Acute Assessment and Plan: Mediastinal Possible pneumonia also noted on CT Will start on antibiotics. Will need outpatient follow-up regarding this. (6) Pneumonia: Code(s): J18.9 - Pneumonia, unspecified organism Status: Acute Assessment and Plan: IV antibiotics (7) Cellulitis: Code(s): L03.90 - Cellulitis, unspecified Status: Acute Assessment and Plan: IV antibiotics Subjective Date/time seen: 10/14/21 12:08 No complaints Exam Narrative: General: Mildly ill-appearing male sitting up in bed. Weight: 95.5 kg. BMI: 30.2. HEENT: Slightly hard of hearing. PERRL, EOMI. Sclerae anicteric. Oral mucosa moist. Neck: Supple. Mild JVD. Respiratory: Mild tachypnea. He is speaking in full sentences. Lung sounds are diminished at the bases with faint crackles at the right base. Cardiovascular: Regular rate and rhythm with S1-S2. Gastrointestinal: Abdomen is soft, nontender, and nondistended with positive bowel sounds. Skin: Warm and dry. Extremities: No cyanosis or clubbing. Two to 3+ pitting edema of the lower extremities, left greater than right. Mild erythema of the legs, likely due to swelling. No palpable knots or cords. Peripheral pulses intact. Neurological: Alert. Cranial nerves 2-12 are grossly intact. No gross focal deficits to casual conversation. Psychiatric: Pleasant and cooperative with appropriate mood and affect. Objective Data Vital Signs Vital Signs: Vital Signs - 24 hr 10/13/21 14:45 10/13/21 14:30 10/13/21 19:55 Temperature Pulse Rate 76 Respiratory Rate 20 Blood Pressure Pulse Oximetry 96 96 Oxygen Delivery Room Air Room Air 10/13/21 20:37 10/14/21 04:43 10/14/21 08:15 Temperature 95.5 F L 96.8 F L Pulse Rate 77 73 Respiratory Rate 18 20 20 Blood Pressure 120/69 107/60 Pulse Oximetry 95 90 93 Oxygen Delivery Room Air 10/14/21 08:30 Temperature Pulse Rate 73 Respiratory Rate Blood Pressure Pulse Oximetry Oxygen Delivery Intake/Output Intake/Output: Intake & Output 10/11/21 10/12/21 10/13/21 10/14/21 23:59 23:59 23:59 23:59 Intake Total 1710 1670 810 600 Output Total 4200 4650 2950 1200 Balance -2490 -2980 -2140 -600 Meds/Results Medications: Active Medications Generic Name Dose Route Start Last Admin Trade Name Freq PRN Reason Stop Dose Admin Aspirin 81 mg 10/12/21 08:00 10/14/21 08:30 Aspirin 81 Mg Chewable Tablet PO 81 mg DAILY@0800 JINNY Administration Carvedilol 3.125 mg 10/11/21 21:00 10/14/21 08:30 Carvedilol 3.125 Mg Tablet PO 3.125 mg Q12HR JINNY Administration Docusate Sodium 100 mg 10/11/21 02:29 10/14/21 08:38 Docusate Sodium 100 Mg Capsule PO 100 mg DAILY PRN Administration Constipation Enoxaparin Sodium 40 mg 10/11/21 09:00
[2021-10-14 14:00] VITALS: BP 111/57; PULSE 73; RESP 20; TEMP 36.1; O2SAT 95
[2021-10-14] MEDS: FUROSEMIDE INJ 40 MG/4 ML VIAL 20 MG IV PUSH (17:11)
[2021-10-14 17:12] LABS: Vancomycin Trough 7.8 ug/mL (10.0-20.0)
[2021-10-14 20:24] VITALS: PULSE 72
[2021-10-14 21:55] VITALS: BP 147/77; PULSE 72; RESP 18; TEMP 36.3; O2SAT 96
[2021-10-15 06:00] VITALS: BP 120/58; PULSE 71; RESP 18; TEMP 37; O2SAT 96
[2021-10-15] MEDS: ENOXAPARIN 40 MG/0.4 ML SYRINGE SUB-Q (08:36)
[2021-10-15 08:37] VITALS: PULSE 69; RESP 18; O2SAT 96
[2021-10-15] MEDS: carvediloL 3.125 MG TABLET PO ×2 (08:37→20:31)
[2021-10-15] MEDS: ASPIRIN 81 MG CHEWABLE TABLET PO (08:37)
[2021-10-15] MEDS: SACUBITRIL/VALSARTAN 12-13 MG TABLET 1 TAB PO ×2 (08:37→20:31)
[2021-10-15] MEDS: FUROSEMIDE INJ 40 MG/4 ML VIAL 20 MG IV PUSH (08:37)
--- NOTE | 2021-10-15 08:57 | PM.PNCARD ---
Progress Note: A&P Assessment and Plan (1) Acute heart failure with reduced ejection fraction and diastolic dysfunction: Code(s): I50.41 - Acute combined systolic (congestive) and diastolic (congestive) heart failure Status: Acute Assessment and Plan: continue Entresto, carvedilol. DC IV furosemide. Start furosemide 40 mg p.o. daily. Replace potassium with 40 mEq p.o. x1 (2) Cardiomyopathy: Code(s): I42.9 - Cardiomyopathy, unspecified Status: Acute Assessment and Plan: ? Etiology. possibly proceed with coronary angiogram on Saturday. Catheterization could even be performed as outpatient but will keep NPO after midnight for angiogram (3) Pulmonary hypertension: Code(s): I27.20 - Pulmonary hypertension, unspecified Status: Acute (4) Chronic kidney disease, stage 3: Code(s): N18.30 - Chronic kidney disease, stage 3 unspecified Status: Acute Assessment and Plan: Repeat BMP in the morning Subjective Date/time seen: 10/15/21 08:57 Interval history: Follow-up visit in this 80-year-old man with systolic congestive heart failure newly diagnosed cardiomyopathy. date of [id number]/14/2021: Feels okay. No chest pain. Swelling has gotten better. no shortness of breath Date of service 10/15/2021: No swelling. No chest pain. No shortness of breath. Resting comfortable Review of Systems Review of Systems: All systems reviewed & are unremarkable except as noted in HPI and below Constitutional: Constitutional: Reports as per HPI and Reports no additional constitutional complaints Eyes: Eyes: Reports as per HPI and Reports no additional eye complaints ENT: Reports system reviewed and no additional complaints, except as documented and Reports as per HPI Cardiovascular: Cardiovascular: Reports as per HPI and Reports no additional cardiovascular complaints Respiratory: Respiratory: Reports as per HPI and Reports no additional respiratory complaints Gastrointestinal: Gastrointestinal: Reports as per HPI and Reports no additional gastrointestinal complaints Genitourinary: Genitourinary: Reports no additional male genitourinary complaints and Reports as per HPI Musculoskeletal: Musculoskeletal: Reports no additional musculoskeletal complaints and Reports as per HPI Integumentary/Breasts: Skin/Breast: Reports system reviewed and no additional complaints, except as docu and Reports as per HPI Neurologic: Reports system reviewed and no additional complaints, except as documented and Reports as per HPI Psychiatric: Psychiatric: Reports no additional psychiatric complaints and Reports as per HPI Endocrine: Endocrine: Reports no additional endocrine complaints and Reports as per HPI Hematologic/Lymphatic: Hematologic/Lymphatic: Reports no additional hematologic/lymphatic complaints and Reports as per HPI Allergic/Immunologic: Allergic/Immunologic: Reports no additional allergic/immunologic complaints and Reports as per HPI Exam Const: General: comfortable, no acute distress, alert and awake Orientation/consciousness: patient oriented x3 Other: Pleasant elderly man sitting up on the bedside no distress in this position HENMT: Head: normal to inspection Mouth: Yes moist mucous membranes Eyes: General: appearance normal, both eyes and all related structures Sclera: sclerae normal Pupils: Equal, round and reactive pupils present Neck: Neck: normal visual inspection, supple, JVD and no JVD Carotids: normal carotid upstroke Other: About 2 cm of JVD Resp: Effort & Inspection: normal respiratory effort Auscultation: not clear to auscultation bilaterally and crackles Other: Bibasilar pulmonary rales are noted Cardio: Rate: regular rate Rhythm: regular rhythm Heart sounds: S1 normal heart sound present, S2 normal heart sound present and Murmur heart sound present systolic soft Other: No murmur no gallop GI: Auscultation: normal bowel sounds Skin:
--- NOTE | 2021-10-15 09:43 | PM.IMPN ---
Progress Note: A&P Assessment and Plan (1) Acute exacerbation of congestive heart failure: Code(s): I50.9 - Heart failure, unspecified Status: Acute Assessment and Plan: He will be diuresed with close monitoring of volume status and renal function. Echocardiogram ordered. Cardiology to see the patient -breathing is improved, continue IV diuretic. Plan for catheterization per Cardiology -scheduling per Cardiology. (2) Elevated troponin: Code(s): R77.8 - Other specified abnormalities of plasma proteins Status: Acute Assessment and Plan: Cardiology consult (3) Chronic kidney disease, stage 3: Code(s): N18.30 - Chronic kidney disease, stage 3 unspecified Status: Acute Assessment and Plan: Creatinine is a bit higher than what he typically runs. Monitor closely while diuresing. (4) Chronic anemia: Code(s): D64.9 - Anemia, unspecified Status: Acute Assessment and Plan: Hemoglobin and hematocrit are stable on review of previous labs. (5) Lymphadenopathy: Code(s): R59.1 - Generalized enlarged lymph nodes Status: Acute Assessment and Plan: Mediastinal Possible pneumonia also noted on CT Will start on antibiotics. Will need outpatient follow-up regarding this. (6) Pneumonia: Code(s): J18.9 - Pneumonia, unspecified organism Status: Acute Assessment and Plan: IV antibiotics (7) Cellulitis: Code(s): L03.90 - Cellulitis, unspecified Status: Acute Assessment and Plan: IV antibiotics Subjective Date/time seen: 10/15/21 09:43 No complaints Exam Narrative: General: Mildly ill-appearing male sitting up in bed. Weight: 95.5 kg. BMI: 30.2. HEENT: Slightly hard of hearing. PERRL, EOMI. Sclerae anicteric. Oral mucosa moist. Neck: Supple. Mild JVD. Respiratory: Mild tachypnea. He is speaking in full sentences. Lung sounds are diminished at the bases with faint crackles at the right base. Cardiovascular: Regular rate and rhythm with S1-S2. Gastrointestinal: Abdomen is soft, nontender, and nondistended with positive bowel sounds. Skin: Warm and dry. Extremities: No cyanosis or clubbing. Two to 3+ pitting edema of the lower extremities, left greater than right. Mild erythema of the legs, likely due to swelling. No palpable knots or cords. Peripheral pulses intact. Neurological: Alert. Cranial nerves 2-12 are grossly intact. No gross focal deficits to casual conversation. Psychiatric: Pleasant and cooperative with appropriate mood and affect. Objective Data Vital Signs Vital Signs: Vital Signs - 24 hr 10/14/21 14:00 10/14/21 20:24 10/14/21 21:55 Temperature 97.0 F L 97.3 F L Pulse Rate 73 72 72 Respiratory Rate 20 18 Blood Pressure 111/57 L 147/77 H Pulse Oximetry 95 96 10/15/21 06:00 10/15/21 08:37 Temperature 98.6 F Pulse Rate 71 69 Respiratory Rate 18 Blood Pressure 120/58 L Pulse Oximetry 96 Intake/Output Intake/Output: Intake & Output 10/12/21 10/13/21 10/14/21 10/15/21 23:59 23:59 23:59 23:59 Intake Total 1670 1310 2130 700 Output Total 4650 2950 3650 1600 [facility] -2980 -1640 -1520 -900 Meds/Results Medications: Active Medications Generic Name Dose Route Start Last Admin Trade Name Freq PRN Reason Stop Dose Admin Aspirin 81 mg 10/12/21 08:00 10/15/21 08:37 Aspirin 81 Mg Chewable Tablet PO 81 mg DAILY@0800 JINNY Administration Carvedilol 3.125 mg 10/11/21 21:00 10/15/21 08:37 Carvedilol 3.125 Mg Tablet PO 3.125 mg Q12HR JINNY Administration Docusate Sodium 100 mg 10/11/21 02:29 10/14/21 08:38 Docusate Sodium 100 Mg Capsule PO 100 mg DAILY PRN Administration Constipation Enoxaparin Sodium 40 mg 10/11/21 09:00 10/15/21 08:36 Enoxaparin 40 Mg/0.4 Ml Syringe SUB-Q 40 mg DAILY JINNY Administration Furosemide 40 mg 10/16/21 09:00 Furosemide 40 Mg Tablet PO DAILY JINNY Ceftria
[2021-10-15] MEDS: POTASSIUM CHLORIDE 20 MEQ TABLET 40 MEQ PO (09:49)
[2021-10-15 14:46] VITALS: BP 116/65; PULSE 70; RESP 16; TEMP 36.1; O2SAT 99
[2021-10-15 20:31] VITALS: PULSE 78
[2021-10-15 21:05] VITALS: BP 125/73; PULSE 74; RESP 20; TEMP 36.1; O2SAT 98
[2021-10-16 04:40] VITALS: BP 100/58; PULSE 77; RESP 18; TEMP 36.1; O2SAT 93
[2021-10-16 05:46] LABS: Anion Gap 6 mmol/L (8-16); Blood Urea Nitrogen 36 mg/dL (9-20); Calcium 8.4 mg/dL (8.4-10.2); Carbon Dioxide 31 mmol/L (22-30); Chloride 99 mmol/L (98-107); Estimated CRCL calculation 42 ml/min; Estimated Glomerular Filt Rate 53; Glucose 91 mg/dL (65-110); Potassium 4.2 mmol/L (3.4-5.0); Sodium 136 mmol/L (137-145)
[2021-10-16 09:52] VITALS: PULSE 72
[2021-10-16] MEDS: FUROSEMIDE 40 MG TABLET PO (09:52)
[2021-10-16] MEDS: carvediloL 3.125 MG TABLET PO ×2 (09:52→20:12)
[2021-10-16] MEDS: ENOXAPARIN 40 MG/0.4 ML SYRINGE SUB-Q (09:52)
[2021-10-16] MEDS: SACUBITRIL/VALSARTAN 12-13 MG TABLET 1 TAB PO ×2 (09:53→20:12)
[2021-10-16] MEDS: ASPIRIN 81 MG CHEWABLE TABLET PO (09:53)
[2021-10-16 09:57] VITALS: BP 134/77
--- NOTE | 2021-10-16 09:57 | PM.IMPN ---
Progress Note: A&P Assessment and Plan (1) Acute exacerbation of congestive heart failure: Code(s): I50.9 - Heart failure, unspecified Status: Acute Assessment and Plan: He will be diuresed with close monitoring of volume status and renal function. Echocardiogram ordered. Cardiology to see the patient -breathing is improved, continue IV diuretic. Plan for catheterization per Cardiology -scheduling per Cardiology. (2) Elevated troponin: Code(s): R77.8 - Other specified abnormalities of plasma proteins Status: Acute Assessment and Plan: Cardiology consult (3) Chronic kidney disease, stage 3: Code(s): N18.30 - Chronic kidney disease, stage 3 unspecified Status: Acute Assessment and Plan: Creatinine is a bit higher than what he typically runs. Monitor closely while diuresing. (4) Chronic anemia: Code(s): D64.9 - Anemia, unspecified Status: Acute Assessment and Plan: Hemoglobin and hematocrit are stable on review of previous labs. (5) Lymphadenopathy: Code(s): R59.1 - Generalized enlarged lymph nodes Status: Acute Assessment and Plan: Mediastinal Possible pneumonia also noted on CT Will start on antibiotics. Will need outpatient follow-up regarding this. (6) Pneumonia: Code(s): J18.9 - Pneumonia, unspecified organism Status: Acute Assessment and Plan: IV antibiotics (7) Cellulitis: Code(s): L03.90 - Cellulitis, unspecified Status: Acute Assessment and Plan: IV antibiotics Subjective Date/time seen: 10/16/21 09:57 No complaints Exam Narrative: General: Mildly ill-appearing male sitting up in bed. Weight: 95.5 kg. BMI: 30.2. HEENT: Slightly hard of hearing. PERRL, EOMI. Sclerae anicteric. Oral mucosa moist. Neck: Supple. Mild JVD. Respiratory: Mild tachypnea. He is speaking in full sentences. Lung sounds are diminished at the bases with faint crackles at the right base. Cardiovascular: Regular rate and rhythm with S1-S2. Gastrointestinal: Abdomen is soft, nontender, and nondistended with positive bowel sounds. Skin: Warm and dry. Extremities: No cyanosis or clubbing. Two to 3+ pitting edema of the lower extremities, left greater than right. Mild erythema of the legs, likely due to swelling. No palpable knots or cords. Peripheral pulses intact. Neurological: Alert. Cranial nerves 2-12 are grossly intact. No gross focal deficits to casual conversation. Psychiatric: Pleasant and cooperative with appropriate mood and affect. Objective Data Vital Signs Vital Signs: Vital Signs - 24 hr 10/15/21 14:46 10/15/21 20:31 10/15/21 21:05 Temperature 97.0 F L 96.9 F L Pulse Rate 70 78 74 Respiratory Rate 16 20 Blood Pressure 116/65 125/73 Pulse Oximetry 99 98 10/16/21 04:40 10/16/21 09:52 Temperature 96.9 F L Pulse Rate 77 72 Respiratory Rate 18 Blood Pressure 100/58 L Pulse Oximetry 93 Intake/Output Intake/Output: Intake & Output 10/13/21 10/14/21 10/15/21 10/16/21 23:59 23:59 23:59 23:59 Intake Total 1310 2130 2060 0 Output Total 2950 3650 1900 Balance -1640 -1520 160 0 Meds/Results Medications: Active Medications Generic Name Dose Route Start Last Admin Trade Name Ashlee PRN Reason Stop Dose Admin Aspirin 81 mg 10/12/21 08:00 10/16/21 09:53 Aspirin 81 Mg Chewable Tablet PO 81 mg DAILY@0800 JINNY Administration Carvedilol 3.125 mg 10/11/21 21:00 10/16/21 09:52 Carvedilol 3.125 Mg Tablet PO 3.125 mg Q12HR JINNY Administration Docusate Sodium 100 mg 10/11/21 02:29 10/14/21 08:38 Docusate Sodium 100 Mg Capsule PO 100 mg DAILY PRN Administration Constipation Enoxaparin Sodium 40 mg 10/11/21 09:00 10/16/21 09:52 Enoxaparin 40 Mg/0.4 Ml Syringe SUB-Q 40 mg DAILY JINNY Administration Furosemide 40 mg 10/16/21 09:00 10/16/21 09:52 Furosemide 40 Mg Tablet PO 40 mg DAILY [facility]
--- NOTE | 2021-10-16 13:23 | PM.PNCARD ---
Progress Note: A&P Assessment and Plan (1) Acute heart failure with reduced ejection fraction and diastolic dysfunction: Code(s): I50.41 - Acute combined systolic (congestive) and diastolic (congestive) heart failure Status: Acute Assessment and Plan: Medical therapy with Entresto, Coreg. Add spironolactone. Continue p.o. furosemide. Can also consider addition of SGLT2 inhibitor if he can afford it. (2) Cardiomyopathy: Code(s): I42.9 - Cardiomyopathy, unspecified Status: Acute Assessment and Plan: ? Etiology. Plan for Coronary angiogram to be arranged as an outpatient to rule out ischemic etiology. (3) Pulmonary hypertension: Code(s): I27.20 - Pulmonary hypertension, unspecified Status: Acute (4) Chronic kidney disease, stage 3: Code(s): N18.30 - Chronic kidney disease, stage 3 unspecified Status: Acute Assessment and Plan: Repeat BMP in the morning Subjective Date/time seen: 10/16/21 13:23 Interval history: Follow-up visit in this 80-year-old man with systolic congestive heart failure newly diagnosed cardiomyopathy. date of [id number]/14/2021: Feels okay. No chest pain. Swelling has gotten better. no shortness of breath Date of service 10/15/2021: No swelling. No chest pain. No shortness of breath. Resting comfortable Date of service 10/16/2021: Continues to improve. Denies any shortness of breath or orthopnea. Swelling has resolved. Review of Systems Review of Systems: All systems reviewed & are unremarkable except as noted in HPI and below Constitutional: Constitutional: Reports as per HPI and Reports no additional constitutional complaints Eyes: Eyes: Reports as per HPI and Reports no additional eye complaints ENT: Reports system reviewed and no additional complaints, except as documented and Reports as per HPI Cardiovascular: Cardiovascular: Reports as per HPI and Reports no additional cardiovascular complaints Respiratory: Respiratory: Reports as per HPI and Reports no additional respiratory complaints Gastrointestinal: Gastrointestinal: Reports as per HPI and Reports no additional gastrointestinal complaints Genitourinary: Genitourinary: Reports no additional male genitourinary complaints and Reports as per HPI Musculoskeletal: Musculoskeletal: Reports no additional musculoskeletal complaints and Reports as per HPI Integumentary/Breasts: Skin/Breast: Reports system reviewed and no additional complaints, except as docu and Reports as per HPI Neurologic: Reports system reviewed and no additional complaints, except as documented and Reports as per HPI Psychiatric: Psychiatric: Reports no additional psychiatric complaints and Reports as per HPI Endocrine: Endocrine: Reports no additional endocrine complaints and Reports as per HPI Hematologic/Lymphatic: Hematologic/Lymphatic: Reports no additional hematologic/lymphatic complaints and Reports as per HPI Allergic/Immunologic: Allergic/Immunologic: Reports no additional allergic/immunologic complaints and Reports as per HPI Exam Const: General: comfortable, no acute distress, alert and awake Orientation/consciousness: patient oriented x3 HENMT: Head: normal to inspection Eyes: General: appearance normal, both eyes and all related structures Pupils: Equal, round and reactive pupils present Neck: Neck: normal visual inspection, supple, JVD and no JVD Carotids: normal carotid upstroke Resp: Effort & Inspection: normal respiratory effort Auscultation: not clear to auscultation bilaterally and crackles Cardio: Rate: regular rate Rhythm: regular rhythm Heart sounds: S1 normal heart sound present, S2 normal heart sound present and Murmur heart sound present systolic soft GI: Auscultation: normal bowel sounds Skin: General skin exam: normal color Neuro: General: patient oriented x3 Cranial nerves: Yes Equal, round and reactive pupils present Extrem: General: n
[2021-10-16 14:20] VITALS: BP 135/95; PULSE 96; RESP 18; TEMP 36.4; O2SAT 93
[2021-10-16 19:44] VITALS: BP 112/53; PULSE 71; RESP 20; TEMP 36; O2SAT 99
[2021-10-16 20:12] VITALS: PULSE 68
[2021-10-17 04:38] VITALS: BP 120/66; PULSE 53; RESP 18; TEMP 35.7; O2SAT 97
[2021-10-17 08:21] VITALS: PULSE 82
[2021-10-17] MEDS: SACUBITRIL/VALSARTAN 12-13 MG TABLET 1 TAB PO ×2 (08:21→20:25)
[2021-10-17] MEDS: carvediloL 3.125 MG TABLET PO ×2 (08:21→20:25)
[2021-10-17] MEDS: SPIRONOLACTONE 25 MG TABLET PO (08:21)
[2021-10-17] MEDS: FUROSEMIDE 40 MG TABLET PO (08:21)
[2021-10-17] MEDS: ASPIRIN 81 MG CHEWABLE TABLET PO (08:21)
[2021-10-17] MEDS: ENOXAPARIN 40 MG/0.4 ML SYRINGE SUB-Q (08:22)
--- NOTE | 2021-10-17 10:35 | PM.PNCARD ---
Progress Note: A&P Assessment and Plan (1) Acute heart failure with reduced ejection fraction and diastolic dysfunction: Code(s): I50.41 - Acute combined systolic (congestive) and diastolic (congestive) heart failure Status: Acute Assessment and Plan: Medical therapy with Entresto, Coreg. Add spironolactone. Continue p.o. furosemide. Can also consider addition of SGLT2 inhibitor if he can afford it. I discussed the concept of a LifeVest for prevention of SCD with him. He would like to pursue LifeVest. Order placed. (2) Cardiomyopathy: Code(s): I42.9 - Cardiomyopathy, unspecified Status: Acute Assessment and Plan: EF 30 - 35%,. ? Etiology. Plan for Coronary angiogram to be arranged as an outpatient to rule out ischemic etiology. (3) Pulmonary hypertension: Code(s): I27.20 - Pulmonary hypertension, unspecified Status: Acute (4) Chronic kidney disease, stage 3: Code(s): N18.30 - Chronic kidney disease, stage 3 unspecified Status: Acute Assessment and Plan: Repeat BMP in the morning (5) Acute exacerbation of congestive heart failure: Code(s): I50.9 - Heart failure, unspecified Status: Acute Assessment and Plan: Well compensated at this time. Subjective Date/time seen: 10/17/21 10:35 Interval history: Follow-up visit in this 80-year-old man with systolic congestive heart failure newly diagnosed cardiomyopathy. date of [id number]/14/2021: Feels okay. No chest pain. Swelling has gotten better. no shortness of breath Date of service 10/15/2021: No swelling. No chest pain. No shortness of breath. Resting comfortable Date of service 10/16/2021: Continues to improve. Denies any shortness of breath or orthopnea. Swelling has resolved. Date of service 10/17/2021: Feeling well today. Has been ambulating around his room with no dyspnea. No dyspnea at rest, no chest pain. Review of Systems Review of Systems: All systems reviewed & are unremarkable except as noted in HPI and below Constitutional: Constitutional: Reports as per HPI and Reports no additional constitutional complaints Eyes: Eyes: Reports as per HPI and Reports no additional eye complaints ENT: Reports system reviewed and no additional complaints, except as documented and Reports as per HPI Cardiovascular: Cardiovascular: Reports as per HPI and Reports no additional cardiovascular complaints Respiratory: Respiratory: Reports as per HPI and Reports no additional respiratory complaints Gastrointestinal: Gastrointestinal: Reports as per HPI and Reports no additional gastrointestinal complaints Genitourinary: Genitourinary: Reports no additional male genitourinary complaints and Reports as per HPI Musculoskeletal: Musculoskeletal: Reports no additional musculoskeletal complaints and Reports as per HPI Integumentary/Breasts: Skin/Breast: Reports system reviewed and no additional complaints, except as docu and Reports as per HPI Neurologic: Reports system reviewed and no additional complaints, except as documented and Reports as per HPI Psychiatric: Psychiatric: Reports no additional psychiatric complaints and Reports as per HPI Endocrine: Endocrine: Reports no additional endocrine complaints and Reports as per HPI Hematologic/Lymphatic: Hematologic/Lymphatic: Reports no additional hematologic/lymphatic complaints and Reports as per HPI Allergic/Immunologic: Allergic/Immunologic: Reports no additional allergic/immunologic complaints and Reports as per HPI Exam Const: General: comfortable, no acute distress, alert and awake Orientation/consciousness: patient oriented x3 Other: Pleasant elderly man sitting up on the bedside no distress in this position HENMT: Head: normal to inspection Mouth: Yes moist mucous membranes Eyes: General: appearance normal, both eyes and all related structures Sclera: sclerae normal Pupils: Equal, round and reactive pupils
--- NOTE | 2021-10-17 11:11 | PM.DS ---
DS: Admitting Diagnosis Discharge Date October 17, 2021 Admitting Diagnosis CHF exacerbation, systolic acute DS: Discharge Diagnosis Discharge Diagnosis (1) Acute exacerbation of congestive heart failure: Code(s): I50.9 - Heart failure, unspecified Status: Acute Assessment and Plan: Acute on chronic, systolic. This is the reason patient was admitted. He was given diuretic therapy and adjusted his cardiac medications well hospital. He is tolerating medications well. He will need catheterization schedule as an outpatient. He has no chest pain currently. He appears to be euvolemic on discharge. New medications will include Entresto spironolactone beta-fidel, furosemide. Continue aspirin as well. (2) Elevated troponin: Code(s): R77.8 - Other specified abnormalities of plasma proteins Status: Acute Assessment and Plan: Cardiology consult (3) Chronic kidney disease, stage 3: Code(s): N18.30 - Chronic kidney disease, stage 3 unspecified Status: Acute Assessment and Plan: Creatinine is a bit higher than what he typically runs. Monitor closely while diuresing. (4) Chronic anemia: Code(s): D64.9 - Anemia, unspecified Status: Acute Assessment and Plan: Hemoglobin and hematocrit are stable on review of previous labs. (5) Lymphadenopathy: Code(s): R59.1 - Generalized enlarged lymph nodes Status: Acute Assessment and Plan: Mediastinal Possible pneumonia also noted on CT Will start on antibiotics. Will need outpatient follow-up regarding this. (6) Pneumonia: Code(s): J18.9 - Pneumonia, unspecified organism Status: Acute Assessment and Plan: IV antibiotics (7) Cellulitis: Code(s): L03.90 - Cellulitis, unspecified Status: Acute Assessment and Plan: IV antibiotics DS: Summary Hospital Course Hospital Course: Patient was admitted for CHF, please see discharge planning diagnoses for summary. Time Spent with Patient Time attestation: Total time spent providing and/or coordinating discharge services: Exam Narrative: General: Mildly ill-appearing male sitting up in bed. Weight: 95.5 kg. BMI: 30.2. HEENT: Slightly hard of hearing. PERRL, EOMI. Sclerae anicteric. Oral mucosa moist. Neck: Supple. Mild JVD. Respiratory: Mild tachypnea. He is speaking in full sentences. Lung sounds are diminished at the bases with faint crackles at the right base. Cardiovascular: Regular rate and rhythm with S1-S2. Gastrointestinal: Abdomen is soft, nontender, and nondistended with positive bowel sounds. Skin: Warm and dry. Extremities: No cyanosis or clubbing. Two to 3+ pitting edema of the lower extremities, left greater than right. Mild erythema of the legs, likely due to swelling. No palpable knots or cords. Peripheral pulses intact. Neurological: Alert. Cranial nerves 2-12 are grossly intact. No gross focal deficits to casual conversation. Psychiatric: Pleasant and cooperative with appropriate mood and affect. Discharge Plan Discharge Attending physician on discharge: Isaac Reyes Consulting providers: Abdoul Vidales Discharging Clinician: Isaac Reyes Patient Disposition: Home, Self-Care Activity: no preference Diet: as tolerated Patient Instructions: Antibiotic Form, Heart Failure (DC) Stand Alone Forms: General Discharge Information Follow-up/Referrals: Abdoul Vidales MD [Physician] - Discharge Medications: New furosemide 40 mg Tablet 40 mg PO DAILY 30 Days Qty: 30 0RF carvedilol [Coreg] 3.125 mg Tablet 3.125 mg PO Q12HR 30 Days Qty: 60 0RF Entresto 24-26 mg Tablet 1 tablet PO Q12HR 30 Days Qty: 60 0RF spironolactone 25 mg Tablet 25 mg PO QAM 30 Days Qty: 30 0RF cefdinir 300 mg capsule 300 mg PO Q12H Qty: 10 0RF aspirin [Children's Aspirin] 81 mg Tablet,Chewable 81 mg PO DAILY 30 Days Qty: 30 0
[2021-10-17 14:00] VITALS: BP 90/42; PULSE 82; RESP 16; TEMP 35.6; O2SAT 98
--- NOTE | 2021-10-17 14:01 | PC.NURSE ---
Called Dr. Reyes patient BP 90/42 manually, stated no new orders.
--- NOTE | 2021-10-17 17:48 | PC.NURSE ---
Called Dr Reyes, patient not able to discharge this evening with [facility], [facility] will send someone in the am, Dr Reyes ok with discharge tomorrow, also new order to D/C IV ABT's.
[2021-10-17 18:03] LABS: Vancomycin Trough 14.9 ug/mL (10.0-20.0)
[2021-10-17 20:00] VITALS: PULSE 67; RESP 16; O2SAT 100
[2021-10-17 20:25] VITALS: PULSE 63
[2021-10-17 20:32] VITALS: BP 98/53; PULSE 67; RESP 16; TEMP 36; O2SAT 100
[2021-10-18 04:03] VITALS: BP 107/55; PULSE 67; RESP 18; TEMP 36.1; O2SAT 98
[2021-10-18 08:58] VITALS: PULSE 80
[2021-10-18] MEDS: carvediloL 3.125 MG TABLET PO (08:58)
[2021-10-18] MEDS: ASPIRIN 81 MG CHEWABLE TABLET PO (08:58)
[2021-10-18] MEDS: ENOXAPARIN 40 MG/0.4 ML SYRINGE SUB-Q (08:59)
[2021-10-18] MEDS: SPIRONOLACTONE 25 MG TABLET PO (09:00)
[2021-10-18] MEDS: SACUBITRIL/VALSARTAN 12-13 MG TABLET 1 TAB PO (09:00)
[2021-10-18] MEDS: FUROSEMIDE 40 MG TABLET PO (09:00)
--- NOTE | 2021-10-18 12:03 | PM.PNCARD ---
Progress Note: A&P Assessment and Plan (1) Acute heart failure with reduced ejection fraction and diastolic dysfunction: Code(s): I50.41 - Acute combined systolic (congestive) and diastolic (congestive) heart failure Status: Acute Assessment and Plan: Medical therapy with Entresto, Coreg, spironolactone. Continue p.o. furosemide. Can also consider addition of SGLT2 inhibitor if he can afford it. LifeVest has been placed. Clarified some concerns and expectations regarding Life Vest. Okay for discharge. Patient has outpatient follow-up scheduled for November 07 with our nurse practitioner. (2) Cardiomyopathy: Code(s): I42.9 - Cardiomyopathy, unspecified Status: Acute Assessment and Plan: EF 30 - 35%,. ? Etiology. Plan for Coronary angiogram to be arranged as an outpatient to rule out ischemic etiology. (3) Pulmonary hypertension: Code(s): I27.20 - Pulmonary hypertension, unspecified Status: Acute (4) Chronic kidney disease, stage 3: Code(s): N18.30 - Chronic kidney disease, stage 3 unspecified Status: Acute Assessment and Plan: Renal function has improved (5) Acute exacerbation of congestive heart failure: Code(s): I50.9 - Heart failure, unspecified Status: Acute Assessment and Plan: Well compensated at this time. Subjective Date/time seen: 10/18/21 12:03 Interval history: Follow-up visit in this 80-year-old man with systolic congestive heart failure newly diagnosed cardiomyopathy. date of [id number]/14/2021: Feels okay. No chest pain. Swelling has gotten better. no shortness of breath Date of service 10/15/2021: No swelling. No chest pain. No shortness of breath. Resting comfortable Date of service 10/16/2021: Continues to improve. Denies any shortness of breath or orthopnea. Swelling has resolved. Date of service 10/17/2021: Feeling well today. Has been ambulating around his room with no dyspnea. No dyspnea at rest, no chest pain. Date of service 10/18/2021: Feeling well, up in room ambulating and getting some son. Wearing life vest. Review of Systems Review of Systems: No chest pain, shortness of breath, dizziness, swelling. He has hard of hearing. Exam Const: General: comfortable and in distress HENMT: Other: Hard of hearing Eyes: EOM: EOMs intact bilaterally Cardio: Rate: regular rate Rhythm: regular rhythm GI: Inspection: non-distended Skin: General skin exam: normal color Neuro: General: gait normal Other: Hard of hearing Extrem: General: no edema Psych: Mental Status: mental status grossly normal Objective Data Vital Signs Vital Signs: Vital Signs - 24 hr 10/17/21 14:00 10/17/21 20:25 10/17/21 20:32 Temperature 96.0 F L 96.8 F L Pulse Rate 82 63 67 Respiratory Rate 16 16 Blood Pressure 90/42 L 98/53 L Pulse Oximetry 98 100 Oxygen Delivery 10/17/21 20:00 10/18/21 04:03 10/18/21 08:58 Temperature 96.9 F L Pulse Rate 67 67 80 Respiratory Rate 16 18 Blood Pressure 107/55 L Pulse Oximetry 100 98 Oxygen Delivery Room Air 10/18/21 08:00 Temperature Pulse Rate Respiratory Rate Blood Pressure Pulse Oximetry Oxygen Delivery Room Air Intake/Output Intake/Output: Intake & Output 10/15/21 10/16/21 10/17/21 10/18/21 23:59 23:59 23:59 23:59 Intake Total 2560 1650 1700 770 Output Total 1900 Balance 660 1650 1700 770 Meds/Results Medications: Active Medications Generic Name Dose Route Start Last Admin Trade Name Freq PRN Reason Stop Dose Admin Aspirin 81 mg 10/12/21 08:00 10/18/21 08:58 Aspirin 81 Mg Chewable Tablet PO 81 mg DAILY@0800 COUNT INCLUDES THE [facility] Administration Carvedilol 3.125 mg 10/11/21 21:00 10/18/21 08:58 Carvedilol 3.125 Mg Tablet PO 3.125 mg Q12HR JINNY Administration Docusate Sodium 100 mg 10/11/21 02:29 10/14/21 08:38 Docusate Sodium 100 Mg Capsule PO 100 mg DAILY PRN Admini
== END 2021-10-18 12:10 | disposition home health service (06) | DRG 291 ==
LOC: ANHED 09:38 → ANHIMU 12:34 → ANH2MED 10-16 10:26 → ANHIMU 10-19 11:25
PROVIDERS: Internal Medicine Cardiovascular Disease; Physician Assistant; Admitting Provider Student in an Organized Health Care Education/Training Program; Emergency Provider Preventive Medicine Aerospace Medicine; PCP Internal Medicine; Visit Provider Chiropractor
DX: I13.0 Hypertensive heart and chronic kidney disease with heart failure and stage 1 through stage 4 chronic kidney disease, or unspecified chronic kidney disease (principal); I50.43 Acute on chronic combined systolic (congestive) and diastolic (congestive) heart failure; J18.9 Pneumonia, unspecified organism; L03.90 Cellulitis, unspecified; N18.30 Chronic kidney disease, stage 3 unspecified; I42.9 Cardiomyopathy, unspecified; D64.9 Anemia, unspecified; R77.8 Other specified abnormalities of plasma proteins; E78.5 Hyperlipidemia, unspecified; R59.1 Generalized enlarged lymph nodes; I73.89 Other specified peripheral vascular diseases; Z86.718 Personal history of other venous thrombosis and embolism; Z86.16 Personal history of COVID-19; Z85.038 Personal history of other malignant neoplasm of large intestine; Z85.46 Personal history of malignant neoplasm of prostate
CPT/HCPCS: 36415; 71046; 71275; 80048; 80053; 80061; 80202; 82565; 83690; 83735; 83880; 84484; 85025; 85027; 85610; 85730; 93005; 93306; 93970; 94762; 96365; 96366; 96372; 96374; 96375; 96376; 97161; 97165; 99285; A9270; G0378; J0696; J1650; J1940; J3370; J3480; J7040; Q9967

== ENCOUNTER 2021-11-24 00:56 | Day surgery (SDC) | payer MEDICARE, SELFPAY ==
[2021-11-23 15:43] VITALS: BMI 25.4
[2021-11-24] VITALS (12 sets, daily range): BP systolic 92–133; BP diastolic 45–79; PULSE 59–76; RESP 12–18; TEMP 36.1–36.6; O2SAT 97–100; BMI 25.4
[2021-11-24 07:47] LABS: Basophils Percent Auto 0.3 % (0.2-1.2); Eosinophils Absolute Auto 0.2 K/mm3 (0-0.3); Eosinophils Percent Auto 2.2 % (0-4.4); Hematocrit 42.3 % (42.0-52.0); Hemoglobin 13.4 g/dL (14.0-18.0); Immature Granulocyte Absolute 0.02 K/mm3 (0.00-0.031); Immature Granulocyte Percent A 0.2 % (0-0.5); Lymphocytes Absolute Auto 4.44 K/mm3 (0.9-3.2); Lymphocytes Percent Auto 46.4 % (18.3-44.2); Mean Corpuscular HGB Conc 31.7 g/dl (32-36); Mean Corpuscular Hemoglobin 30.2 pg (26-34); Mean Corpuscular Volume 95.5 fl (80-100); Mean Platelet Volume 9.2 fl (7.4-10.4); Monocytes Absolute Auto 0.7 K/mm3 (0.1-0.6); Monocytes Percent Auto 6.9 % (2.6-8.5); Neutrophils Absolute Auto 4.2 K/mm3 (1.3-6.7); Platelet Count Result 242 k/mm3 (150-375); Red Blood Count 4.43 M/mm3 (4.6-6.20); Red Cell Distribution Width 13.9 % (11.5-14.5); White Blood Count 9.6 K/mm3 (4.5-10.0)
[2021-11-24 08:05] LABS: Anion Gap 12 mmol/L (8-16); Blood Urea Nitrogen 54 mg/dL (9-20); Calcium 8.6 mg/dL (8.4-10.2); Carbon Dioxide 28 mmol/L (22-30); Chloride 104 mmol/L (98-107); Estimated CRCL calculation 33 ml/min; Estimated Glomerular Filt Rate 39; Glucose 104 mg/dL (65-110); Potassium 4.1 mmol/L (3.4-5.0); Sodium 144 mmol/L (137-145)
--- NOTE | 2021-11-24 08:46 | WPDMODSED ---
Moderate Sedation Note-Pt Data Patient Data Diagnosis: Recently diagnosed cardiomyopathy Present Complaint: No complaints this morning Procedure to be performed/Plan: Coronary angiography Allergies Allergy/AdvReac Type Severity Reaction Status Date / Time No Known Allergies Allergy Verified 11/24/21 07:19 Home Medications Medication Instructions Recorded Confirmed Type aspirin 81 mg chewable tablet 81 mg PO DAILY 30 days #30 tabs 10/17/21 11/23/21 Rx (Children's Aspirin) carvedilol 3.125 mg tablet (Coreg) 3.125 mg PO Q12HR 30 days #60 tabs 10/17/21 11/23/21 Rx furosemide 40 mg tablet 40 mg PO DAILY 30 days #30 tabs 10/17/21 11/23/21 Rx sacubitril 24 mg-valsartan 26 mg 1 tablet PO Q12HR 30 days #60 tabs 10/17/21 11/23/21 Rx tablet (Entresto) spironolactone 25 mg tablet 25 mg PO QAM 30 days #30 tabs 10/17/21 11/23/21 Rx coenzyme Q10 100 mg capsule 100 mg PO DAILY 11/23/21 11/23/21 History glucosamine sulf dipot 1 cap PO DAILY 11/23/21 11/23/21 History chlr,msm,chond 550 mg-C 30 mg-billy 1 mg capsule (Glucosamine Chondroitin) magnesium oxide 400 mg (241.3 mg 400 mg PO DAILY 11/23/21 11/23/21 History magnesium) tablet multivit with minerals-iron 18 1 tablet PO DAILY 11/23/21 11/23/21 History mg-folic ac 400 mcg-vit K 25 mcg tablet (Adults Multivitamin) phytonadione (vitamin K1) 100 mcg 100 mcg PO DAILY 11/23/21 11/23/21 History tablet Current Medications: Active Medications Sodium Chloride (Normal Saline Iv) 500 mls @ 100 mls/hr IV CONT .Q5H JINNY Sedation/Anesthesia: No previous sedation/anesthesia problems (including family history). [facility] Past Medical History Medical History Chronic anemia Chronic kidney disease, stage 3 Colon cancer Congestive heart failure Echo in 09/2020 showed normal LV systolic function with estimated EF of 55-60% and grade I diastolic dysfunction. Peripheral arterial disease Ischemic left hand in September 2020, possibly related to concomitant COVID 19. Pneumonia due to COVID-19 virus (09/2020) Prostate cancer Surgical History Surgical History History of partial colectomy For colon cancer. History of prostatectomy For prostate cancer. Family History Family History Other Family history unobtainable Social History Social History (Updated 10/12/21 @ 13:36 by Celi Kate PA-C) Social History: Healthcare power of finance attorney: Kartik Grossman ([phone]). Code status: Smoking status: Never smoker Alcohol intake: former Substance use: never Living arrangements: with friend(s) Additional living arrangements comments: Lives in [place]. About a year ago he let homeless man stay in his house were a bit and apparently he never left. Spiritual care concerns: No Mod Sed Physical Exam Physical Exam Pre Procedural Exam: Normal: Appearance, Neck, Throat, Airway, Lungs, Heart Size, Heart Rate, Heart Rhythm, Neuro Exam and Extremities Hours since solid foods: 12 Hours since liquid intake: 12 Mallampati Classification: class II Internal Medicine - PN: Obj Da Vital Signs Vital Signs: Vital Signs - 24 hr 11/24/21 07:26 Temperature 36.1 C L Pulse Rate 64 Respiratory Rate 18 Blood Pressure 133/66 Pulse Oximetry 99 Oxygen Delivery Room Air Meds/Results Medications: Active Medications Generic Name Dose Route Start Last Admin Trade Name Freq PRN Reason Stop Dose Admin Sodium Chloride 500 mls @ 100 mls/hr 11/24/21 07:00 Normal Saline Iv IV CONT .Q5H JINNY Labs CBC & Chem 7: 11/24/21 07:17 11/24/21 07:17 Labs: Laboratory Results - last 24 hr 11/24/21 11/24/21 07:17 07:17 WBC 9.6 RBC 4.43 L Hgb 13.4 L Hct 42.3 MCV 95.5 MCH 30.2 MCHC 31.7 L RDW 13.9 Plt Count 2
--- NOTE | 2021-11-24 09:28 | P.PCNCC_ITS ---
Cardiac Cath Procedure Note Date of procedure:: 11/24/21 Performing physician:: Isaac Jackson MD Indication:: Recently diagnosed cardiomyopathy Brief clinical history:: this is an 81-year-old man recently found to have ventricular systolic dysfunction. Catheterization has been recommended to determine if this is an ischemic cardiomyopathy. He has no chest pain. He does have renal insufficiency for this reason I will forego left ventriculography. Procedure Procedure performed:: Coronary angiography Angio-Seal to right femoral artery Sedation/Medication given:: fentanyl 25 mg Versed 2 mg Access site:: right femoral artery Estimated blood loss:: 20 cc Procedure note:: patient was brought to the cardiac catheterization lab in the postabsorptive state the right femoral triangle was prepared and draped in the usual fashion. Anesthesia was provided with 1% lidocaine infiltrated locally. Using the modified Seldinger technique femoral artery was punctured and a 5 [place] vascular sheath was placed. After this I used a 5 [place] FL4 catheter to engage and inject the left coronary artery in multiple projections. After this a 5 [place] JR4 catheter was used to engage inject the right coronary artery in orthogonal projections. After this I used a 5 [place] angled pigtail catheter to measure left-sided hemodynamics as well as pullback pressures across the aortic valve. The case was then terminated angiogram was done of the femoral artery through the sheath and then a 6 [place] Angio-Seal device was deployed at the puncture site with a good hemostatic result. 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 Findings:: Hemodynamics: Central pressure was 118 over 50 left 118 over to end- diastolic pressure 16. No gradient on pullback across the aortic valve. The left main coronary artery is medium in caliber and patent. The left anterior descending is a small caliber vessel appears to be mildly diffusely disease. There is 100% proximal occlusion of the major diagonal b ranch. The LAD itself is patent down to the apex. 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 There is JADIEL 3 flow in the vessel. The mid to distal portion of the LAD is angiographically quite small but patent circumflex small vessel giving rise to only 1 small obtuse marginal branch. Circumflex is free of significant disease. The right coronary artery is a large vessel dominant to the posterior circulation. The right coronary artery is angiographically normal it supplies a large PDA the 2 significant posterolateral vessels which are large And not disease. Conclusion:: 1. right coronary dominant circulation with no significant right coronary disease and a small circumflex without significant disease. 2. 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 4. Mildly elevated LVEDP Isaac Jackson MD FACC
== END 2021-11-24 14:20 | disposition home or self-care (01) ==
PROVIDERS: PCP Internal Medicine; Visit Provider Specialist
PROC: 4A023N7 Measurement of Cardiac Sampling and Pressure, Left Heart, Percutaneous Approach (ICD-10-PCS; CPT 93452; principal; 2021-11-24 08:30)
DX: I42.9 Cardiomyopathy, unspecified (principal); I25.82 Chronic total occlusion of coronary artery; I50.9 Heart failure, unspecified; I11.0 Hypertensive heart disease with heart failure; E78.5 Hyperlipidemia, unspecified; Z85.038 Personal history of other malignant neoplasm of large intestine; Z85.46 Personal history of malignant neoplasm of prostate; Z86.16 Personal history of COVID-19
CPT/HCPCS: 36415; 80048; 85025; 93458; C1760; C1887; C1894; G0269; J1644; J2250; J3010; J7040